=== PATIENT | female | born 1975 | race African-American/Black ===

== ENCOUNTER 2020-07-29 13:33 | Outpatient (RCR) | payer MEDICAID, SELFPAY | END 2020-10-11 23:59 | LOC: IMMUN 13:33 | PROVIDERS: PCP Preventive Medicine Occupational Medicine; Visit Provider Family Medicine | DX: Z23 Encounter for immunization (principal) | CPT/HCPCS: 0001A; 0002A; 91300 ==

== ENCOUNTER → 2022-07-02 | Outpatient (CLI) | payer MEDICAID, SELFPAY ==
--- NOTE | 2022-07-02 13:07 | CT_ITS ---
STUDY: CT CHEST WITHOUT CONTRAST REASON FOR EXAM: Female, 46 years old. CHEST PAIN-limited chest over-read only RADIATION DOSAGE (If Supplied By Facility): CTDIvol = ( 52.32 ) mGy, DLP = ( 3425.79 ) mGycm TECHNIQUE: Transaxial imaging was performed without the administration of intravenous contrast material. Cardiac or renal examination. Individualized dose optimization techniques were used for this CT. COMPARISON: No relevant priors. FINDINGS: CHEST Mild degree of dependent bibasilar atelectasis. There is no demonstrated pleural abnormality. No coronary artery calcification is seen. Normal mediastinum. Normal hilar regions. Normal unenhanced pulmonary arteries. Normal aorta arch and descending thoracic aorta. Normal osseous structures. Fatty infiltration of the liver. CT/Limited Chest CT Cardiac Only IMPRESSION: Mild degree of bibasilar atelectasis. No coronary artery calcification is seen Electronically Signed: Edgar La MD at 10:46 EST ,
[2022-07-02 13:40] VITALS: BP 198/97; PULSE 68; RESP 20; O2SAT 98; BMI 41.5
[2022-07-02 13:58] VITALS: BP 198/97; PULSE 98
[2022-07-02] MEDS: Nitroglycerin SL (ED/IMG/CATH) 0.4 MG TABLET SL (13:58)
[2022-07-02 14:04] VITALS: BP 198/97; PULSE 74
[2022-07-02] MEDS: Metoprolol Tartrate 5 MG/5 ML Vial IV (14:04)
[2022-07-02 14:13] VITALS: BP 175/101; PULSE 66; RESP 20; O2SAT 95
[2022-07-02 14:16] LABS: EGFR FINGERSTICK > 60.0000 mL/min (>60)
--- NOTE | 2022-07-02 14:16 | NURSING ---
PT encouraged to track baseline BP records at home and share with provider. Pt denies LEIVA/dizziness/blurred vision, CP, weakness.
--- NOTE | 2022-07-02 18:54 | CCTA.WCONT ---
CCTA w/Cont Coronary Arteries Date of Study:: 07/02/22 Chest Pain Consent:: Per Patient The patient underwent coronary CTA with particular attention paid to the coronary arteries for the evaluation of underlying atherosclerotic coronary artery disease. The procedure was performed without obvious complication. Technical adequacy: Diminished LEFT MAIN CORONARY ARTERY: The left main coronary appears to be a large vessel giving rise to the left anterior descending and left circumflex coronary arteries. The left main coronary artery appears to be patent with no obvious angiographically significant appearing disease. LEFT ANTERIOR DESCENDING CORONARY ARTERY: The left anterior descending coronary artery is a large vessel tapering to a small vessel as it courses to the apex and gives rise to a diagonal branching system. The left anterior descending coronary artery appears to be patent with no obvious angiographically significant appearing disease. LEFT CIRCUMFLEX CORONARY ARTERY: The left circumflex coronary artery appears to give rise to an obtuse marginal system. The proximal to mid portions of the left circumflex coronary artery appear to be patent with no obvious angiographically significant appearing disease. The distal portion of the left circumflex coronary artery is not well visualized. The obtuse marginal coronary artery appears to be patent with no obvious angiographically significant appearing disease. RIGHT CORONARY ARTERY: The right coronary artery appears to be a dominant system. The right coronary artery appears to be patent with no obvious angiographically significant appearing disease. The right PDA/right AV segment are not well visualized. THORACIC AORTA: The thoracic aorta appears to be patent with no obvious angiographically significant disease. PULMONARY ARTERY: The main pulmonary artery and proximal portions of the right and left pulmonary artery appear to be patent with no obvious filling defects. LEFT ATRIUM/APPENDAGE: The left atrium/appendage appears to be patent with no obvious filling defects. MITRAL VALVE: The mitral valve appears to be bileaflet structure. AORTIC VALVE: The aortic valve appears to be a trileaflet structure. LEFT VENTRICLE: The left ventricle demonstrates the appearance of normal left ventricular size, wall motion, and systolic function. The LVEF was calculated at 81%. CORONARY CALCIUM SCORE: A coronary calcium score was not obtained. This note was generated using a voice recognition system and there may be incorrect words, spelling or punctuation that were not noted when reviewing the office note prior to saving.
== END | disposition home or self-care (01) ==
LOC: CT 13:05
PROVIDERS: PCP Preventive Medicine Occupational Medicine; Referring Provider Nurse Practitioner Family; Visit Provider Nurse Practitioner Family
DX: R07.9 Chest pain, unspecified (principal); I82.409 Acute embolism and thrombosis of unspecified deep veins of unspecified lower extremity; I10 Essential (primary) hypertension; E78.00 Pure hypercholesterolemia, unspecified
CPT/HCPCS: 75574; 76380; Q9967

== ENCOUNTER 2024-02-22 21:40 | Emergency (ER) | payer MEDICAID, SELFPAY ==
[2024-02-22 21:41] VITALS: BP 177/95; PULSE 83; RESP 18; TEMP 37; O2SAT 98; BMI 39.6
--- NOTE | 2024-02-22 22:24 | EX.ED.DYSGE1 ---
HPI History of Present Illness Chief Complaint: Dizziness Informant: patient Narrative Narrative: 48-year-old female presenting with dizziness that feels like spinning/vertigo for the past 5 days. States started suddenly while she was at work 1 day, she does remember exactly she was doing them but ever since it has been a lot worse with any type of movement or position changes. She denies any nausea or vomiting. No earache or tinnitus. No recent URI. Occasional headache not right now. States the dizziness is present and significant right now. She denies any vision changes or focal neurologic symptoms peripherally. Sometimes off balance as a result of this. 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 States she has also been having some vaginal bleeding lately which is unusual for her regarding the timing since she is not this to be on her cycle right now. It has not been very heavy but it has been present for 3 days. She states she is also checked her blood pressure and concerned it was elevated, it has been in the 150s and occasionally in the 160s. She takes blood pressure medication no recent changes to 100 of her medicines. No recent head injury. No syncope. Patient states she has had this in the past off-and-on with regards to the vertigo. She states this is unusual because it has been lasting longer. Otherwise it is similar. [facility] Medical History Chest pain History of arterial thrombosis CAYLA (obstructive sleep apnea) Hypercholesteremia Hypertension Home Medications ?Medication ?Instructions ?Recorded ?Last Taken ?Type atorvastatin 20 mg tablet 20 mg PO DAILY 02/22/24 Unknown History diltiazem HCl 360 mg capsule,24 360 mg PO DAILY 02/22/24 Unknown History hr,extended release metoprolol succinate 25 mg 25 mg PO DAILY 02/22/24 Unknown History tablet,extended release 24 hr warfarin 6 mg tablet mg PO 02/22/24 Unknown History warfarin 6 mg tablet (Jantoven) 12 mg PO DAILY 02/22/24 Unknown History meclizine 25 mg tablet 25 mg PO Q8H PRN PRN Dizziness #20 02/23/24 Unknown Rx tabs Allergy/AdvReac Type Severity Reaction Status Date / Time No Known Allergies Allergy Verified 02/22/24 21:41 Family History Mother Heart disease Social History Smoking Status: Never smoker alcohol intake: never substance use type: does not use ROS ROS ED Constitutional Constitutional ED: Denies chills or fever(s) Eyes Eyes: Denies change in vision or diplopia ENT ENT ED: Reports as per HPI and vertigo; Denies abnormal hearing, ear discharge, ear pain, hearing loss, rhinorrhea or sore throat Cardiovascular Cardiovascular: Denies chest pain or palpitations Respiratory/Chest Respiratory/Chest: Denies cough or dyspnea Gastrointestinal Gastrointestinal: Denies abdominal pain, diarrhea, nausea or vomiting Genitourinary Genitourinary ED: Denies dysuria or hematuria Musculoskeletal Musculoskeletal: Denies back pain or neck pain Integumentary Denies abscess or rash Neurologic Neurologic: Denies headache(s), paresthesias or weakness Psychiatric Psychiatric: Denies anxiety or suicidal thoughts EXAM Physical Exam Const Vital Signs: 02/22/24 21:41 02/22/24 23:41 02/23/24 01:00 Temperature 98.6 F Temperature Source Oral Pulse Rate 83 88 66 Respiratory Rate 18 16 16 Blood Pressure 177/95 H 165/77 H 142/65 H Blood Pressure Mean 122 106 90 Pulse Ox 98 95 96 Oxygen Delivery Method Room Air Room Air Room Air Positive well nourished and well developed General Appearance ED: well developed and NAD HEENT Reports moist mucous membranes normocephalic and atraumatic Eyes PERRL and EOMs intact bilaterally Neck full ROM and supple Resp normal respiratory effort and clear to auscultation bilaterally Cardio regular rate, regular rhythm and no murmurs GI non-tender and non-distended Auscultation: normoactive bowel sounds Palpation: soft Back/Spine no CVA tenderness General Back: other FROM Extremity normal to inspection General Extremety ED: Negative for edema, pulses abnormal or tenderness General Extremity: Negative for edema or pulses abnormal Neuro oriented x3, CN's II-XII intact bilaterally and no sensory deficits noted Neuro Narrative: Normal [id number] and [id number] bilaterally. Hints: Head impulse test is abnormal, with catch-up saccade. There is horizontal nystagmus to the right but not the left. Skew test is unremarkable and normal. Sensorium / Orientation: awake and alert Motor Exam: strength 5/5 throughout Psych mental status grossly normal Skin no rashes or lesions noted and no wounds MDM MDM MDM Narrative Medical decision making narrative: At the time of evaluation her blood pressure is 149 systolic. I do not think that her blood pressures are causing her symptoms. She is anticoagulated so an ischemic stroke is extremely unlikely, since she does not have a headache right now with significant symptoms and hemorrhagic strokes extremely unlikely. I am obtaining an INR and some basic labs to make sure she is not terribly anemic while giving her some meclizine and plan will be for reevaluation. Her INR returned at 15.1. This may explain the abnormal vaginal bleeding she is having. Her hemoglobin is 11 I do not have a prior to compare with but she is not tachycardic as if she has lost a lot of blood acutely. I consider this [id number] bleeding. Given this, I did not think she needed a CT but since her INR is 15 and she was having some headaches off and on I thought it best to perform a CT to rule out hemorrhage. I reviewed the images and the report which I agree with, it is negative. She was given vitamin K 5 mg IV. She did not have active bleeding while here. I believe she can be discharged home safely to hold her Coumadin until she follows up with her doctor after the weekend. After meclizine her dizziness is much better consistent with peripheral etiology of vertigo. She is given a prescription for that to use as needed and again advised to follow-up closely. She is comfortable with that plan. Lab Data Attestation: I reviewed the patient's lab results. Labs: Laboratory Results - last 24 hr 02/22/24 22:49 WBC 6.3 RBC 4.37 Hgb 11.0 L Hct 36.3 L MCV 83.1 MCH 25.2 L MCHC 30.3 L RDW Std Deviation 56.2 H RDW Coeff of Maria M 18.6 H Plt Count 237 MPV 10.0 Immature Gran % (Auto) 0.200 Neut % (Auto) 56.6 Lymph % (Auto) 25.4 Hanson % (Auto) 13.9 H Eos % (Auto) 3.3 Baso % (Auto) 0.6 Absolute Neuts (auto) 3.6 Absolute Lymphs (auto) 1.61 Nucleated RBC % 0 PT 108.1 H INR 15.1 H* Sodium 137 Potassium 4.2 Chloride 108 H Carbon Dioxide 26.0 Anion Gap 3 L BUN 22 H Creatinine 0.68 Estim Creat Clear Calc 104.31 Est GFR (MDRD) Af Amer 118 Est GFR (MDRD) Non-Af 98 BUN/Creatinine Ratio 32.5 H Glucose 115 H Calcium 9.0 Radiography Diagnostic Testing: Clinical Impression(s) from Imaging Studies Brain CT 02/23/24 00:09 IMPRESSION: No acute intracranial abnormality. ASSESSMENT: ASPECTS ([place] Stroke Program Early CT Score) is 10. Electronically Signed: Adrien Wong MD at 0:41 EDT , Rhythm Strip Rhythm Strip: Sinus Rhythm Rate: 80 Ectopy: None Discharge Plan Triage Chief Complaint: Dizziness ED Provider: Terry Crockett Dx/Rx/DC Orders Clinical Impression: Peripheral vertigo, Supratherapeutic INR, DUB (dysfunctional uterine bleeding) Instructions: ED Labyrinthitis Prescriptions: New meclizine 25 mg tablet 25 mg PO Q8H PRN PRN (Reason: Dizziness) Qty: 20 0RF Continued atorvastatin 20 mg tablet 20 mg PO DAILY diltiazem HCl 360 mg capsule,extended release 24 hr 360 mg PO DAILY metoprolol succinate 25 mg tablet extended release 24 hr 25 mg PO DAILY Held warfarin 6 mg tablet PO Hold Instructions: Until advised otherwise by your doctor warfarin [Jantoven] 6 mg tablet 12 mg PO DAILY Hold Instructions: Until advised otherwise by your doctor Primary Care Provider: Lalito Knight Referrals: Lalito Knight DO [Primary Care Provider] - Print Language: Yakut
--- OUTSIDE RECORDS SUMMARY | 2024-02-22 22:33 | XMS RPT_ITS | CCD ---
Author Organization [facility] Care Team Providers Care Colored Liquid Plastic Applier Name Role Phone Mehran Knight Primary Care Provider [phone] MEHRAN KNIGHT DO Primary Care Physician [phone] REID CORTEZ DO Attending Unavailable MEHRAN KNIGHT DO Primary Care Unavailable MEHRAN KNIGHT DO Primary Care Unavailable STACEY JACKSON MD Attending Unavail able MEHRAN KNIGHT DO Attending Unavailable MEHRAN KNIGHT DO Primary Care Unavailable REID CORTEZ DO Attending Unavailable MEHRAN KNIGHT Primary Care Unavailable Medications Current Medications Medication Drug Class(es) Dates Sig (Normalized) Sig (Original) atorvastatin 20 mg oral tablet (10 sources) HMG-CoA Reductase Inhibitor Start: 08-01-2023 End: 09-04-2024 atorvastatin 20 mg oral tablet Dose : 20 mg = 1 tab(s), Oral, qDay, # 100 tab(s), 3 Refill(s), [facility] #[id number], Hypercholesterolemi a, 156.5, cm, 08/01/23 10:54:00 EDT, Height, kg, 08/01/23 10:54:00 EDT, Dosing Weight Start Date: 08/01/23 Stop Date: 09/04/24 Status: Ordered Start: 01-15-2022 End: 01-10-2023 atorvastatin 20 mg oral tabl et Dose : 20 mg = 1 tab(s), Oral, qDay, # 90 tab(s), 3 Refill(s), Pharmacy: [facility] #[id number], 157, cm, 01/15/22 11:39:00 EDT, Height, kg, 01/15/22 11:39:00 EDT, Dosing Weight Start Date: 01/15/22 Stop Date: 01/10/23 Status: Ordered Start: 10-14-2020 End: 10-09-2021 atorvastatin 20 mg oral tabl et Dose : 20 mg = 1 tab(s), Oral, qDay, # 90 tab(s), 3 Refill(s), [facility] [address] 157, cm, 10/14/20 8:37:00 EDT, Height, kg, 10/14/20 8:37:00 EDT, Dosing Weight Start Date: 10/14/20 Stop Date: 10/09/21 Status: Ordered Start: 06-15-2015 take 1 tablet by liza th once daily atorvastatin (LIPITOR) 20 mg tablet Take 20 mg by mouth once daily. 0 06/15/2015 Active Comment on above: Take 20 mg by mouth once daily. baclofen 10 mg oral tablet (1 source) gamma-Aminobutyric Acid-ergic Agonist Start: 05-15-2021 End: 05-30-2021 baclofen 10 mg oral tablet Dose : 10 mg = 1 tab(s), Oral, TID, PRN back spasm, # 45 tab(s), 0 Refill(s), [facility] [address] Lumbar paraspinal muscle spasm, 157, cm, 05/15/21 16:27:00 EST, Height, kg, 05/15/21 16:27:00 EST, Dosing Weight Start Date: 05/15/21 Stop Date: 05/30/21 Status: Ordered cephalexin 500 mg oral capsule (1 source) Cephalosporin Antibacterial Start: 01-07-2024 End: 01-14-2024 cephalexin 500 mg oral capsule Dose : 500 mg = 1 cap(s), Oral, q12h, X 7 day(s), # 14 cap(s), 0 Refill(s), 01/14/24 3:29:00 PM EDT, 96.4 Start Date: 01/07/24 Stop Date: 01/14/24 Status: Ordered cyclobenzaprine hydrochloride 10 mg oral tablet (1 source) Muscle Relaxant Start: 05-11-2021 End: 05-16-2021 cyclobenzaprine 10 mg oral tablet Dose : 10 mg = 1 tab(s), Oral, TID, X 5 day(s), # 15 tab(s), 0 Refill(s), 05/16/21 20:12:00 EST Start Date: 05/11/21 Stop Date: 05/16/21 Status: Ordered 24 hr dilTIAZem hydrochloride 360 mg extended release oral capsule (10 sources) Calcium Channel Dmitry Start: 01-01-2024 Taztia XT 360 mg/24 hours oral capsule, extended release Dose : 360 mg = 1 cap(s), Oral, qDay, # 90 cap(s), 3 Refill(s), Pharmacy: [facility]/pharmacy #[id number], 156.5, cm, 08/01/23 10:54:00 EDT, Height, kg, 08/01/23 10:54:00 EDT, Dosing Weight Start Date: 01/01/24 Status: Ordered Start: 01-10-2023 Taztia XT 360 mg/24 hours oral capsule, extended release Dose : 360 mg = 1 cap(s), Oral, qDay, # 90 cap(s), 3 Refill(s), Pharmacy: [facility] #[id number], 144.8, cm, 12/06/22 22:01:00 EDT, Height, kg, 12/06/22 22:01:00 EDT, Dosing Weight Start Date: 01/10/23 Status: Ordered Start: 01-15-2022 Taztia XT 360 mg/24 hours oral capsule, extended release Dose : 360 mg = 1 cap(s), Oral, qDay, # 90 cap(s), 3 Refill(s), Pharmacy: [facility] #[id number], 157, cm, 01/15/22 11:39:00 EDT, Height, kg, 01/15/22 11:39:00 EDT, Dosing Weight Start Date: 01/15/22 Status: Ordered Start: 04-21-2021 Taztia XT 360 mg/24 hours oral capsule, extended release Dose : 360 mg = 1 cap(s), Oral, qDay, # 90 cap(s), 3 Refill(s), Pharmacy: [facility] 157, cm, 01/30/21 11:26:00 EDT, Height, kg, 01/30/21 11:26:00 EDT, Dosing Weight Start Date: 04/21/21 Status: Ordered take 1 capsule by [facility] once daily Diltiazem HCl 360 mg 24 hr capsule Take 360 mg by mouth once daily. 0 Active Comment on above: Take 360 mg by mouth once daily. FLUoxetine 10 mg oral tablet (1 source) Serotonin Reuptake Inhibitor Start: 08-01-2023 FLUoxetine 10 mg oral tablet Dose : 10 mg = 1 tab(s), Oral, qDay, # 30 tab(s), 0 Refill(s), Pharmacy: [facility] #[id number], Menopausal hot flushes, 156.5, cm, 08/01/23 10:54:00 EDT, Height, kg, 08/01/23 10:54:00 EDT, Dosing Weight Start Date: 08/01/23 Status: Ordered gabapentin 600 mg oral tablet (3 sources) Anti-epileptic Agent Start: 11-23-2021 End: 02-21-2022 gabapentin 600 mg oral tablet Dose : 1,200 mg = 2 tab(s), Oral, BID, # 120 tab(s), 2 Refill(s), Pharmacy: [facility] #[id number], Left sided sciatica, 157, cm, 11/23/21 13:08:00 EDT, Height, 102.1, kg, 11/23/21 13:08:00 EDT, Dosing Weight Start Date: 11/23/21 Stop Date: 02/21/22 Status: Ordered Start: 05-15-2021 End: 06-14-2021 gabapentin 600 mg oral table t Dose : 600 mg = 1 tab(s), Oral, BID, Start with one half tab p.o. at bedtime and increase dose as by one half tab twice daily as tolerated, # 60 tab(s), 0 Refill(s), Pharmacy: [facility] Left sided sciatica, 157, cm, 05/15/21 16:27:00 ES... Start Date: 05/15/21 Stop Date: 06/14/21 Status: Ordered hydroCHLOROthiazide 25 mg oral tablet (8 sources) Thiazide Diuretic Start: 01-15-2022 hydroCHLOROthiazide 25 mg oral tablet Dose : 25 mg = 1 tab(s), Oral, qDay, PRN Blood pressure control, # 90 tab(s), 3 Refill(s), Pharmacy: [facility] #[id number], 157, cm, 01/15/22 11:39:00 EDT, Height, kg, 01/15/22 11:39:00 EDT, Dosing Weight Start Date: 01/15/22 Status: Ordered Start: 07-26-2020 hydroCHLOROthi azide 25 mg oral tablet Dose : 25 mg = 1 tab(s), Oral, qDay, PRN Blood pressure control, # 90 tab(s), 3 Refill(s), Pharmacy: [facility] 159, cm, 07/26/20 10:37:00 EDT, Height, kg, 07/26/20 10:37:00 EDT, Dosing Weight Start Date: 07/26/20 Status: Ordered meclizine hydrochloride 25 m g oral tablet (9 sources) Antiemetic Start: 12-06-2022 End: 12-11-2022 meclizine 25 mg oral tablet Dose : 25 mg = 1 tab(s), Oral, TID, PRN as needed for dizziness, X 5 day(s), # 15 tab(s), 0 Refill(s), 12/11/22 11:21:00 PM EDT Start Date: 12/06/22 Stop Date: 12/11/22 Status: Ordered Start: 07-16-2020 meclizine 12.5 mg oral tablet Dose : 12.5 mg = 1 tab(s), Oral, TID, PRN as needed for dizziness, # 20 tab(s), 0 Refill(s), Vertigo Start Date: 07/16/20 Status: Ordered Medrol Dosepak 4 mg oral tablet (1 source) Start: 05-11-2021 End: 05-17-2021 Medrol Dosepak 4 mg oral tablet 1 packet(s), Oral, qDay, as directed on package labeling, X 6 day(s), # 21 tab(s), 0 Refill(s), 05/17/21 20:12:00 EST Start Date: 05/11/21 Stop Date: 05/17/21 Status: Ordered 24 hr metoprolol succinate 25 mg extended release oral tablet (4 sources) beta-Adrenergic Dmitry Start: 05-28-2022 metopr olol succinate 25 mg oral TABLET extended release Dose : 25 mg = 1 tab(s), Oral, qDay, Do not crush or chew (controlled release), # 30 tab(s), 5 Refill(s), [facility][id number], 155, cm, 05/28/22 10:24:00 EST, Height Start Date: 05/28/22 Status: Ordered oxyCODONE hydrochloride 5 mg oral tablet (1 source) Opioid Agonist Start: 05-11-2021 End: 05-14-2021 oxyCODONE 5 mg oral tablet ( IMMEDIATE release ) Dose : 5 mg = 1 tab(s), Oral, q6hr, PRN Pain, scale 7-10, X 3 day(s), # 7 tab(s), 0 Refill(s), 05/14/21 20:29:00 EST, Left-sided piriformis syndrome Pain in left leg, 102.8 Start Date: 05/11/21 Stop Date: 05/14/21 Status: Ordered phentermine hydrochloride 37.5 mg oral tablet (2 sources) Sympathomimetic Amine Anorectic Start: 12-04-2021 End: 01-03-2022 phentermine 37.5 mg oral tablet Dose : 37.5 mg = 1 tab(s), Oral, qAM, before breakfast, X 30 day(s), # 30 tab(s), 0 Refill(s), 01/03/22 14:10:00 EDT, Pharmacy: [facility] #[id number], Morbid obesity with BMI of 40.0-44.9, adult, 157, cm, 12/04/21 13:37:00 EDT, Height, 101 Start Date: 12/04/21 Stop Date: 01/03/22 Status: Ordered vitamin b12 1 mg oral tablet (8 sources) Vitamin B12 Start: 08-02-2023 End: 09-05-2024 cyanocobalamin 1000 mcg oral tablet Dose : 1,000 mcg = 1 tab(s), Oral, Daily, # 100 tab(s), 3 Refill(s), Pharmacy: [facility] #[id number], Vitamin B12 deficiency, 156.5, cm, 08/01/23 10:54:00 EDT, Height, kg, 08/01/23 10:54:00 EDT, Dosing Weight Start Date: 08/02/23 Stop Date: 09/05/24 Status: Ordered Start: 08-01-2022 cyanocobalamin 1000 mcg oral tablet Dose : 1,000 mcg = 1 tab(s), Oral, Daily, # 90 tab(s), 3 Refill(s), Pharmacy: [facility] #[id number], Vitamin B12 deficiency, 155, cm, 05/28/22 10:24:00 EST, Height, kg, 05/28/22 10:24:00 EST, Dosing Weight Start Date: 08/01/22 Status: Ordered Start: 07-31-2021 cyanocobalamin 1000 mcg oral tablet Dose : 1,000 mcg = 1 tab(s), Oral, Daily, # 90 tab(s), 3 Refill(s), [facility], Vitamin B12 deficiency, 157, cm, 07/31/21 11:37:00 EDT, Height, kg, 07/31/21 11:37:00 EDT, Dosing Weight Start Date: 07/31/21 Status: Ordered Start: 08-12-2020 cyanocobalamin 1000 mcg oral tablet Dose : 1,000 mcg = 1 tab(s), Oral, Daily, # 90 tab(s), 3 Refill(s), Pharmacy: [facility], Vitamin B12 deficiency, 159, cm, 07/26/20 10:37:00 EDT, Height, kg, 07/26/20 10:37:00 EDT, Dosing Weight Start Date: 08/12/20 Status: Ordered warfarin sodium 6 mg oral tablet (10 sources) Vitamin K Antagonist Start: 04-23-2023 warfarin 6 mg oral tablet See Instructions, Take 2.5 tabs on Saturday and and 2 tabs PO on the other days of the week., # 180 tab(s), 1 Refill(s), Pharmacy: [facility] #[id number], History of arterial thrombosis, 144.8, cm, 12/06/22 22:01:00 EDT, Height, kg, 04/10/23 11:26:00 EST, Dosing Weight Start Date: 04/23/23 Status: Ordered Start: 05-29-2022 warfarin 6 mg oral tablet See Instructions, Take 2.5 tabs on Saturday and and 2 tabs PO on the other days of the week., # 180 tab(s), 1 Refill(s), Pharmacy: [facility] #[id number], History of arterial thrombosis, 155, cm, 05/28/22 10:24:00 EST, Height, kg, 05/28/22 10:24:00 EST, Dosing Weight Start Date: 05/29/22 Status: Ordered Start: 01-30-2021 warfarin 6 mg oral tablet See Instructions, Take 2-1/2 tablets p.o. on Saturday and and 2 tablets p.o. on the other days of the week., # 180 tab(s), 1 Refill(s), [facility]acy: [facility] [facility], History of arterial thrombosis, 157, cm, 01/30/21 11:26:00 EDT, Height, k... Start Date: 01/30/21 Status: Ordered warfarin (COUMAD IN) 10 mg tablet Take 10 mg by mouth once daily. Taking 12mg per day 0 Active Comment on above: Take 10 mg by mouth once daily. 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] Onset: 7 07-03-2016 Chronic Conditions associated with dizziness or vertigo (1 source) Dizziness and giddiness; Translations: [Dizziness and giddiness] Onset: 3 Episodic Disorders of lipid metabolism (8 sources) Pure hypercholesterolemia 11-24-2019 Chroni c Essential hypertension (9 sources) Hypertensive disorder; Translations: [Essential hypertension] Onset: 3 10-14-2020 Chronic Genitourinary symptoms and ill-defined conditions (2 sources) Polyuria 07-31-2021 Episodic Menopausal disorders (1 source) Menopausal flushing 08-01-2023 Chronic Nutritional deficiencies (8 sources) Cobalamin deficiency 08-14-2019 Episodic Other aftercare (8 sources) Long-term current use of anticoagulant 01-30-2021 Episodic Other circulatory disease (8 sources) History of arterial thrombosis 10-07-2019 Episodic Other connective tissue disease (1 source) Pain of left lower leg; Translations: [Pain in left lower leg] Onset: 2 Episodic Other connective tissue disease (1 source) Muscle pain; Translations: [Myalgia, other site] Onset: 2 Episodic Other connective tissue disease (1 source) Pain in left arm 12-04-2021 Episodic Other diseases of bladder and urethra (4 sources) Overactive bladder 04-16-2022 Chronic Other nervous system disorders (1 source) Sciatic nerve lesion; 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, left lower limb] Onset: 2 Chronic Other nervous system disorders (4 sources) Carpal tunnel syndrome 01-15-2022 Chronic Other non-traumatic joint disorders (1 source) Pain of left hip joint; Translations: [Pain in left hip] Onset: 2 Episodic Other non-traumatic joint disorders (5 sources) Pain in elbow 12-04-2021 Episodic Other nutritional; endocrine; and metabolic disorders (8 sources) Body mass index 40+ - severely obese 10-07-2019 Chronic Other skin disorders (8 sources) Mass lesion of brain 10-07-2019 Episodic Residual codes; unclassified (8 sources) Obstructive sleep apnea of adult 12-12-2020 Chronic Spondylosis; intervertebral disc disorders; other back problems (20 sources) Backache; Translations: [Sciatica] Onset: 3 05-15-2021 Episodic Unclassified (10 sources) Patient encounter status 05-26-2019 Results Test Name Value Interpretation Reference Range Facility .Auto Diffon 01-07-2024 Basophil, Absolute 0.1 10 3/mcL Normal 0.0-0.2 [facility] ([place]) Comment on above: Performed By: #### C BC, GFR, BMP, SADIA, RENITA GUNTER #### [address] [address] Basophils/100 WBC (Bld) 1.4 % Normal 0.0-2.5 [facility] ([place]) Comment on above: Performed By: #### C BC, GFR, BMP, ANEU, RENITA GUNTER #### [address] [address] Eosinophil, Absolute 0.2 10 3/mcL Normal 0.0-0.4 [facility] ([place]) Comment on above: Performed By: #### C BC, GFR, BMP, ANEU, RENITA GUNTER #### [address] [address] Eosinophils/100 WBC (Bld) 3.5 % Normal 0.0-7.0 [facility] ([place]) Comment on above: Performed By: #### C BC, GFR, BMP, ANEU, RENITA GUNTER #### [address] [address] Lymphocyte, Absolute 1.3 10 3/mcL Normal 0.8-3.9 [facility] ([place]) Comment on above: Performed By: #### C BC, GFR, BMP, ANEU, RENITA GUNTER #### [address] [address] Lymphocytes/100 WBC (Bld) 24.1 % Normal 10.0-50.0 [facility] ([place]) Comment on above: Performed By: #### C BC, GFR, BMP, ANEU, RENITA GUNTER #### [address] [address] Monocyte, Absolute 0.4 10 3/mcL Normal 0.2-1.0 [facility] ([place]) Comment on above: Performed By: #### C BC, GFR, BMP, ANEU, RENITA GUNTER #### [address] [address] Monocytes/100 WBC (Bld) 8.5 % Normal 1.7-13.0 [facility] ([place]) Comment on above: Performed By: #### C BC, GFR, BMP, ANEU, ADRENITA BAKER #### [address] [address] Neutrophils/100 WBC (Bld) 62.5 % Normal 37.0-80.0 [facility] ([place]) Comment on above: Performed By: #### C BC, GFR, BMP, LYRIC MCCULLOUGH MDW #### [address] [address] .GFRon 01-07-2024 GFR 61 ml/min/1.73sqm Normal [facility] ([place]) Comment on above: Result Comment: GFR Population mean for , Non- Americans Ages 20-29 = 116 mL/min/1.73 sq.m. Ages 30-39 = 107 mL/min/1.73 sq.m. Ages 40-49 = 99 mL/min/1.73 sq.m. Ages 50-59 = 93 mL/min/1.73 sq.m. Ages 60-69 = 85 mL/min/1.73 sq.m. Ages 70+ = 75 mL/min/1.73 sq.m. Chronic Kidney Disease: Less than 60 mL/min/1.73 square meters End Stage Renal Disease: Less than 15 mL/min/1.73 square meters Performed By: #### C BC, GFR, BMP, LYRIC MCCULLOUGH MDW #### [address] [address] GFR Non- 50 ml/min/1.73sqm Normal [facility] ([place]) Comment on above: Result Comment: GFR Population mean for , Non- Americans Ages 20-29 = 116 mL/min/1.73 sq.m. Ages 30-39 = 107 mL/min/1.73 sq.m. Ages 40-49 = 99 mL/min/1.73 sq.m. Ages 50-59 = 93 mL/min/1.73 sq.m. Ages 60-69 = 85 mL/min/1.73 sq.m. Ages 70+ = 75 mL/min/1.73 sq.m. Chronic Kidney Disease: Less than 60 mL/min/1.73 square meters End Stage Renal Disease: Less than 15 mL/min/1.73 square meters Performed By: #### C BC, GFR, BMP, LYRIC MCCULLOUGH MDW #### [address] [address] .MDWon 01-07-2024 Monocyte Distribution Width 16.39 Normal 0.00-20.00 [facility] ([place]) Comment on above: Result Comment: For ED adult patients suspected of sepsis, MDW<=20.0 does not rule out sepsis or risk of sepsis Performed By: #### C BC, GFR, BMP, LYRIC MCCULLOUGH MDW #### [place] [address] .NEUABSon 01-07-2024 Neutrophil, Absolute 3.3 10 3/mcL Normal 2.9-6.2 [facility] ([place]) Comment on above: Performed By: #### C BC, GFR, BMP, LYRIC MCCULLOUGH MDW #### [place] [address] .Urinalysis Microscopic (AO) on 01-07-2024 UA RBC 0-5 Abnormal None Seen [facility] ([place]) Comment on above: Performed By: #### U AMICAO, UA #### [place] [address] UA Squam Epithelial 5-10 Abnormal None Seen [facility] ([place]) Comment on above: Performed By: #### U AMICAO, UA #### [place] [address] UA WBC 0-5 Abnormal None Seen [facility] ([place]) Comment on above: Performed By: #### U AMICAO, UA #### [place] [address] BMPon 01-07-2024 BUN/Creatinine Ratio 17 ratio Normal 7-27 [facility] ([place]) Comment on above: Performed By: #### C BC, GFR, BMP, LYRIC MCCULLOUGH MDW #### [place] [address] Calcium [Mass/Vol] 9.1 mg/dL Normal 8.4-10.2 [facility] ([place]) Comment on above: Performed By: #### C BC, GFR, BMP, LYRIC MCCULLOUGH MDW #### [address] [place] [address] Chloride [Moles/Vol] 103 mmol/L Normal 98-107 [facility] ([place]) Comment on above: Performed By: #### C BC, GFR, BMP, LYRIC MCCULLOUGH MDW #### [address] [address] CO2 [Moles/Vol] 28 mmol/L Normal 22-29 [facility] ([place]) Comment on above: Performed By: #### C BC, GFR, BMP, LYRIC MCCULLOUGH MDW #### [address] [address] Creatinine [Mass/Vol] 1.14 mg/dL High 0.55-1.02 [facility] ([place]) Comment on above: Result Comment: Test ing performed on [employer] Dimension EXL analyzer using a modified kinetic David technique. Performed By: #### C BC, GFR, LLUVIA, LYRIC [facility]ULL[facility] MDW #### [address] [address] Electrolyte Balance 9.0 mEq/L Normal 4.0-15.0 [facility] ([place]) Comment on above: Performed By: #### C BC, GFR, SADIA TEIXEIRA ADIFF, MDW #### [address] [address] Glucose [Mass/Vol] 95 mg/dL Normal 70-105 [facility] ([place]) Comment on above: Performed By: #### C BC, GFR, LULVIA, L[facility]IC [facility] MDW #### [address] [address] Potassium [Moles/Vol] 3.4 mmol/L Low 3.5-5.1 [facility] ([place]) Comment on above: Performed By: #### C BC, GFR, BMPSADIA ADIFF, MDW #### [address] [address] Sodium [Moles/Vol] 140 mmol/L Normal 136-145 [facility] ([place]) Comment on above: Performed By: #### C BC, GFR, BMP, LYRIC MCCULLOUGH MDW #### [address] [address] Urea nitrogen [Mass/Vol] 19 mg/dL High 7-18 [facility] ([place]) Comment on above: Performed By: #### C BC, GFR, BMP, LYRIC MCCULLOUGH MDW #### [address] [address] CBCon 01-07-2024 Erythrocyte distribution width (RBC) [Ratio] 19.8 % High 11.5-14.5 [facility] ([place]) Comment on above: Performed By: #### C BC, GFR, BMP, LYRIC MCCULLOUGH MDW #### [place] [address] Hematocrit (Bld) [Volume fraction] 36.7 % Low 37.0-47.0 [facility] ([place]) Comment on above: Performed By: #### C BC, GFR, BMP, LYRIC MCCULLOUGH MDW #### [place] [address] Hgb 12.0 G/dL Normal 12.0-16.0 [facility] ([place]) Comment on above: Performed By: #### C BC, GFR, BMP, LYRIC MCCULLOUGH MDW #### [address] [address] MCH (RBC) [Entitic mass] 25.8 pg Low 27.0-31.2 [facility] ([place]) Comment on above: Performed By: #### C BC, GFR, BMP, LYRIC MCCULLOUGH MDW #### [place] [address] MCHC 32.8 G/dL Low 33.0-37.0 [facility] ([place]) Comment on above: Performed By: #### C BC, GFR, BMP, LYRIC MCCULLOUGH MDW #### [place] [address] MCV (RBC) [Entitic vol] 78.5 fL Low 80.0-94.0 [facility] ([place]) Comment on above: Performed By: #### C BC, GFR, BMP, LYRIC MCCULLOUGH MDW #### [address] [address] Platelet 304 10 3/mcL Normal 130-400 [facility] ([place]) Comment on above: Performed By: #### C BC, GFR, BMP, LYRIC MCCULLOUGH MDW #### [place] [address] [address] Platelet mean volume (Bld) [Entitic vol] 8.1 fL Normal 7.4-10.4 [facility] ([place]) Comment on above: Performed By: #### C BC, GFR, LLUVIA, LYRIC MCCULLOUGH MDW #### [place] [address] [address] RBC 4.67 10 6/mcL Normal 4.20-5.40 [facility]) Comment on above: Performed By: #### C BC, GFR, BMP, LYRIC MCCULLOUGH MDW #### [place] [address] [address] WBC 5.2 10 3/mcL Normal 4.6-10.8 [facility] ([place]) Comment on above: Performed By: #### C BC, GFR, LLUVIA, LYRIC MCCULLOUGH MDW #### [address] [address] LABORATORYOrdered By: Geno Delgadillo on 01-07-2024 Appearance (U) Clear (01/07/24 2:30 PM) Normal Clear AO Auto Urine SS Bilirubin Ql (U) Negative (01/07/24 2:30 PM) Normal Negative AO Auto Urine SS Color (U) Yellow (01/07/24 2:30 PM) Normal AO Auto Urine SS Glucose Test strip (U) [Mass/Vol] Negative Normal Negative AO Auto Urine SS Hemoglobin Auto test strip (U) [Mass/Vol] Trace *ABN* (01/07/24 2:30 PM) Invalid Interpretation Code Negative AO Auto Urine SS Ketones Ql (U) Negative Normal Negative AO Auto Ur ine SS UA Leuk Est Small *ABN* (01/07/24 2:30 PM) Invalid Interpretation Code Negative AO Auto Urine SS UA Nitrite Negative (01/07/24 2:30 PM) Normal Negative AO Auto Urine SS UA pH 5.5 (01/07/24 2:30 PM) Normal 5.0 - 8.0 AO Auto Urine SS UA Protein Trace mg/dL Normal Negative AO Auto Urine SS UA RBC 0-5 /HPF Invalid Interpretation Code None Seen AO Auto Urine SS UA Spec Grav >=1.030 *ABN* (01/07/24 2:30 PM) Invalid Interpretation Code 1.015-1.025 AO Auto Urine SS UA Specimen Type Clean Catch (01/07/24 2:30 PM) Normal AO Auto Urine SS UA Squam Epithelial 5-10 /HPF Invalid Interpretation Code None Seen AO Auto Urine SS UA Urobilinogen 0.2 E.U./dL Normal 0.2-1.0 AO Auto Urine SS WBC LM.HPF (Urine sed) [#/Area] 0-5 /HPF Invalid Interpretation Code None Seen AO Auto Urine SS LABORATORYOrdered By: SYSTEM SYSTEM on 01-07-2024 Basophil, Absolute 0.1 103/mcL Normal 0.0 - 0.2 10^3/mcL AO Workflow SS Basophils/100 WBC (Bld) 1.4 % Normal 0.0 - 2.5 % AO Workflow SS Calcium [Mass/Vol] 9.1 mg/dL Normal 8.4 - 10. 2 mg/dL AO ADM SS Chloride [Moles/Vol] 103 mmol/L Normal 98 - 10 7 mmol/L AO ADM SS CO2 [Moles/Vol] 28 mmol/L Normal 22 - 29 mmol/L AO ADM SS Creatinine [Mass/Vol] 1.14 mg/dL High 0.55 - 1.02 mg/dL AO ADM SS Comment on above: Interpretive Data: T esting performed on [employer] Dimension EXL analyzer using a modified kinetic David technique. Electrolyte Balance 9.0 mEq/L Normal 4.0 - 15 .0 mEq/L AO ADM SS Eosinophil, Absolute 0.2 103/mcL Normal 0.0 - 0 .4 10^3/mcL AO Workflow SS Eosinophils/100 WBC (Bld) 3.5 % Normal 0.0 - 7.0 % AO Workflow SS Erythrocyte distribution width (RBC) [Ratio] 19.8 % High 11.5 - 14.5 % AO Workflow SS GFR/1.73 sq M.predicted among blacks MDRD (S/P/Bld) [Vol rate/Area] 61 ml/min/1.73sqm Invalid Interpretation Code AO Chemistry S Comment on above: Interpretive Data: GFR Population mean for , Non- Americans Ages 20-29 = 116 mL/min/1.73 sq.m. Ages 30-39 = 107 mL/min/1.73 sq.m. Ages 40-49 = 99 mL/min/1.73 sq.m. Ages 50-59 = 93 mL/min/1.73 sq.m. Ages 60-69 = 85 mL/min/1.73 sq.m. Ages 70+ = 75 mL/min/1.73 sq.m. Chronic Kidney Disease: Less than 60 mL/min/1.73 square meters End Stage Renal Disease: Less than 15 mL/min/1.73 square meters GFR/1.73 sq M.predicted among non-blacks MDRD (S/P/Bld) [Vol rate/Area] 50 ml/min/1.73sqm Invalid Interpretation Code AO Chemistry S Comment on above: Interpretive Data: GFR Population mean for , Non- Americans Ages 20-29 = 116 mL/min/1.73 sq.m. Ages 30-39 = 107 mL/min/1.73 sq.m. Ages 40-49 = 99 mL/min/1.73 sq.m. Ages 50-59 = 93 mL/min/1.73 sq.m. Ages 60-69 = 85 mL/min/1.73 sq.m. Ages 70+ = 75 mL/min/1.73 sq.m. Chronic Kidney Disease: Less than 60 mL/min/1.73 square meters End Stage Renal Disease: Less than 15 mL/min/1.73 square meters Glucose [Mass/Vol] 95 mg/dL Normal 70 - 105 mg/dL AO ADM SS Hematocrit (Bld) [Volume fraction] 36.7 % Low 37.0 - 47.0 % AO Workflow SS Hemoglobin (Bld) [Mass/Vol] 12.0 G/dL Normal 12.0 - 16.0 G/dL AO Workflow SS Lymphocyte, Absolute 1.3 103/mcL Normal 0.8 - 3 .9 10^3/mcL AO Workflow SS Lymphocytes/100 WBC (Bld) 24.1 % Normal 10.0 - 50.0 % AO Workflow SS MCH (RBC) [Entitic mass] 25.8 pg Low 27.0 - 31.2 pg AO Workflow SS MCHC 32.8 G/dL Low 33.0 - 37.0 G/dL AO Workflow SS MCV (RBC) [Entitic vol] 78.5 fL Low 80.0 - 94.0 fL AO Workflow SS Monocyte distribution width Auto (Bld) [Entitic vol] 16.39 1 Normal 0.00 - 20.00 AO Workflow SS Comment on above: Result Comment: For ED adult patients suspected of sepsis, MDW<=20.0 does not rule out sepsis or risk of sepsis Monocyte, Absolute 0.4 103/mcL Normal 0.2 - 1.0 10^3/mcL AO Workflow SS Monocytes/100 WBC (Bld) 8.5 % Normal 1.7 - 13.0 % AO Workflow SS Neutrophil, Absolute 3.3 103/mcL Normal 2.9 - 6 .2 10^3/mcL AO Workflow SS Neutrophils/100 WBC (Bld) 62.5 % Normal 37.0 - 80.0 % AO Workflow SS Platelet mean volume (Bld) [Entitic vol] 8.1 fL Normal 7.4 - 10.4 fL AO Workflow SS Platelets (Bld) [#/Vol] 304 103/mcL Normal 130 - 400 10^3/mcL AO Workflow SS Potassium [Moles/Vol] 3.4 mmol/L Low 3.5 - 5.1 mmol/L AO ADM SS RBC (Bld) [#/Vol] 4.67 106/mcL Normal 4.20 - 5.4 0 10^6/mcL AO Workflow SS Sodium [Moles/Vol] 140 mmol/L Normal 136 - 145 mmol/L AO ADM SS Troponin I.cardiac DL <= 0.01 ng/mL [Mass/Vol] ng/L Normal 0 - 51 ng/L AO ADM SS Comment on above: Interpretive Data: H igh Sensitive Troponin I Reference Ranges: Female: 0-51 ng/L Male: 0-76 ng/L Testing performed on [employer] using a homogeneous sandwich chemiluminescent immunoassay based on [email or web address] technology. Urea nitrogen [Mass/Vol] 19 mg/dL High 7 - 18 mg/dL AO ADM SS Urea nitrogen/Creatinine [Mass ratio] 17 ratio Normal 7 - 27 ratio AO ADM SS WBC (Bld) [#/Vol] 5.2 103/mcL Normal 4.6 - 10.8 10^3/mcL AO Workflow SS TROPHSon 01-07-2024 High Sensitivity Troponin I <4 Normal 0-51 [facility] ([place]) Comment on above: Result Comment: High Sensitive Troponin I Reference Ranges: Female: 0-51 ng/L Male: 0-76 ng/L Testing performed on [employer] using a homogeneous sandwich chemiluminescent immunoassay based on [email or web address] technology. Performed By: #### C BC, GFR, BMP, ANEU, LYRIC, W #### [address] [address] UAon 01-07-2024 Color (U) Yellow Normal [facility] ([place]) Comment on above: Order Comment: Micro scopic performed on unspun urine; QNS. Performed By: #### U AMICAO, UA #### [address] [address] Glucose (U) [Mass/Vol] Negative Normal Negative [facility] ([place]) Comment on above: Order Comment: Micro scopic performed on unspun urine; QNS. Performed By: #### U AMICAO, UA #### [address] [address] Ketones Ql (U) Negative Normal Negative [facility] ([place]) Comment on above: Order Comment: Micro scopic performed on unspun urine; QNS. Performed By: #### U AMICAO, UA #### [address] [address] UA Appear Clear Normal Clear [facility] ([place]) Comment on above: Order Comment: Micro scopic performed on unspun urine; QNS. Performed By: #### U AMICAO, UA #### [address] [address] UA Blood Trace Abnormal Negative [facility] ([place]) Comment on above: Order Comment: Micro scopic performed on unspun urine; QNS. Performed By: #### U AMICAO, UA #### [address] [address] UA Leuk Est Small Abnormal Negative [facility] ([place]) Comment on above: Order Comment: Micro scopic performed on unspun urine; QNS. Performed By: #### U AMICAO, UA #### [address] [address] UA Nitrite Negative Normal Negative [facility] ([place]) Comment on above: Order Comment: Micro scopic performed on unspun urine; QNS. Performed By: #### U AMICAO, UA #### [address] [address] UA pH 5.5 Normal 5.0 - 8.0 [facility] ([place]) Comment on above: Order Comment: Micro scopic performed on unspun urine; QNS. Performed By: #### U AMICAO, UA #### [place] [address] UA Protein Trace Normal Negative [facility] ([place]) Comment on above: Order Comment: Micro scopic performed on unspun urine; QNS. Performed By: #### U AMICAO, UA #### [address] [address] UA Spec Grav >=1.030 Abnormal 1.015-1.025 [facility] ([place]) Comment on above: Order Comment: Micro scopic performed on unspun urine; QNS. Performed By: #### U AMICAO, UA #### [address] [address] UA Specimen Type Clean Catch Normal [facility] ([place]) Comment on above: Order Comment: Micro scopic performed on unspun urine; QNS. Performed By: #### U AMICAO, UA #### [address] [address] UA Urobilinogen 0.2 E.U./dL Normal 0.2-1.0 [facility] ([place]) Comment on above: Order Comment: Micro scopic performed on unspun urine; QNS. Performed By: #### U AMICAO, UA #### [place] [id number] Urobilinogen (U) [Mass/Vol] Negative Normal Negative [facility] ([place]) Comment on above: Order Comment: Micro scopic performed on unspun urine; QNS. Performed By: #### U SUNNY ROSS #### [address] [address] XR CHEST 1 VIEWon 01-07-2024 XR CHEST 1 VIEW ORIGINAL EXAMINATION: ONE XRAY VIEW OF THE CHEST 01/07/2024 2:44 pm COMPARISON: Chest x-ray 07/2022, CTA chest 05/25/2022. HISTORY: ORDERING SYSTEM PROVIDED HISTORY: Reason for Exam: chest pain FINDINGS: Cardiomediastinal silhouette is within normal limits. No focal consolidation, pleural effusion or pneumothorax. The osseous structures appear intact. IMPRESSION: No acute cardiopulmonary process. Interpreted by: Alex Cade Preliminary Report By: Alex Cade Electronically signed By Alex Cade Dictated Date: 01/07/2024 2:48:23 PM Prelim Date: 01/07/2024 2:49:22 PM Sign Date: 01/07/2024 2:49:22 PM Ordering Provider: REID Tobar [facility] ([place]) MA MAMMOGRAM SCREENING BILAT ERAL W/TOMOon 08-14-2023 MA MAMMOGRAM SCREENING BILATERAL W/DENICE ORIGINAL FROM: ASHLEY [address] [address] PROCEDURE FOR: LES ARCOS [address] [place] [address] Home: PID#: [id number] Exam#: [id number] : 1975 Age: 47 TO: MEHRAN KNIGHT DO [address] [address] Fax: NO FAX EXAMINATION: SCREENING DIGITAL BILATERAL MAMMOGRAM WITH TOMOSYNTHESIS, 08/13/2023 2:54 pm TECHNIQUE: Screening mammography of the bilateral breasts was performed with tomosynthesis. 2D standard and 3D tomosynthesis combination imaging performed through both breasts in the MLO and CC projection. Computer aided detection was utilized in the interpretation of this exam. COMPARISON: November 02, 2013 HISTORY: Breast cancer screening. FINDINGS: BREAST DENSITY: Scattered fibroglandular tissue Bilateral benign-type calcifications. There is no significant mass, architectural distortion or microcalcification. Fibroglandular pattern is stable. IMPRESSION: No mammographic evidence of malignancy. Continued screening with annual mammograms is recommended. Noel Costello risk calculations, generated with the history provided, report this patient's 10 year risk and lifetime risk for developing breast cancer at 2.2% and 9.9%, respectively. Based on this assessment tool, if the patient's calculated lifetime risk is below 20%, then the patient is considered at average risk for developing breast cancer. If the patient's calculated lifetime risk is at or above 20%, then the patient is considered high risk for developing breast cancer and may be a candidate for supplemental breast MRI screening in addition to annual mammographic screening per the [employer]. BIRADS: MAMMOGRAM BI-RADS: 2: Benign finding RECALL: 1 year screening RECALL TYPE: mammo LETTER SENT: Normal BI-RADS 1 and 2 Interpreted by: Lacey Swartz Preliminary Report By: Lacey Swartz Electronically signed By Lacey Swartz Dictated Date: 08/14/2023 11:10:45 AM Prelim Date: 08/14/2023 11:23:16 AM Sign Date: 08/14/2023 11:23:16 AM Ordering Provider: MEHRAN KNIGHT [employer]: JESÚS RAY (R)(M) letter sent: Normal BI-RADS 1 and 2 Mammogram BI-RADS: 2 Benign Normal [facility] ([place]) .Auto Diffon 04-10-2023 Basophil, Absolute 0.1 10 3/mcL Normal 0.0-0.2 [facility] ([place]) Comment on above: Performed By: #### C BC, GFR, BMP, LYRIC MCCULLOUGH MDW #### [place] [address] [address] Basophils/100 WBC (Bld) 1.2 % Normal 0.0-2.5 [facility] ([place]) Comment on above: Performed By: #### C BC, GFR, BMP, LYRIC MCCULLOUGH MDW #### [place] [id number] [place], [place] [address] Eosinophil, Absolute 0.2 10 3/mcL Normal 0.0-0.4 [facility] ([place]) Comment on above: Performed By: #### C BC, GFR, BMP, ANEULYRIC MDW #### [address] [address] Eosinophils/100 WBC (Bld) 2.3 % Normal 0.0-7.0 [facility] ([place]) Comment on above: Performed By: #### C BC, GFR, BMP, ANEULYRIC MDW #### [address] [address] Lymphocyte, Absolute 1.5 10 3/mcL Normal 0.8-3.9 [facility] ([place]) Comment on above: Performed By: #### C BC, GFR, BMP, ANEULYRIC MDW #### [address] [address] Lymphocytes/100 WBC (Bld) 22.2 % Normal 10.0-50.0 [facility] ([place]) Comment on above: Performed By: #### C BC, GFR, BMP, ANEULYRIC MDW #### [address] [address] Monocyte, Absolute 0.6 10 3/mcL Normal 0.2-1.0 [facility] ([place]) Comment on above: Performed By: #### C BC, GFR, BMP, LYRIC MCCULLOUGH MDW #### [address] [address] Monocytes/100 WBC (Bld) 9.6 % Normal 1.7-13.0 [facility] ([place]) Comment on above: Performed By: #### C BC, GFR, BMP, LYRIC MCCULLOUGH MDW #### [address] [address] Neutrophils/100 WBC (Bld) 64.7 % Normal 37.0-80.0 [facility] ([place]) Comment on above: Performed By: #### C BC, GFR, BMP, ANEULYRIC MDW #### [address] [address] .GFRon 04-10-2023 GFR Non- 52 ml/min/1.73sqm Normal [facility] ([place]) Comment on above: Result Comment: GFR Population mean for , Non- Americans Ages 20-29 = 116 mL/min/1.73 sq.m. Ages 30-39 = 107 mL/min/1.73 sq.m. Ages 40-49 = 99 mL/min/1.73 sq.m. Ages 50-59 = 93 mL/min/1.73 sq.m. Ages 60-69 = 85 mL/min/1.73 sq.m. Ages 70+ = 75 mL/min/1.73 sq.m. Chronic Kidney Disease: Less than 60 mL/min/1.73 square meters End Stage Renal Disease: Less than 15 mL/min/1.73 square meters Performed By: #### C BC, GFR, BMP, LYRIC MCCULLOUGH MDW #### [place] [address] [address] GFR 63 ml/min/1.73sqm Normal [facility] ([place]) Comment on above: Result Comment: GFR Population mean for , Non- Americans Ages 20-29 = 116 mL/min/1.73 sq.m. Ages 30-39 = 107 mL/min/1.73 sq.m. Ages 40-49 = 99 mL/min/1.73 sq.m. Ages 50-59 = 93 mL/min/1.73 sq.m. Ages 60-69 = 85 mL/min/1.73 sq.m. Ages 70+ = 75 mL/min/1.73 sq.m. Chronic Kidney Disease: Less than 60 mL/min/1.73 square meters End Stage Renal Disease: Less than 15 mL/min/1.73 square meters Performed By: #### C BC, GFR, BMP, LYRIC MCCULLOUGH MDW #### [place] [address] [address] .MDWon 04-10-2023 Monocyte Distribution Width 18.33 Normal 0.00-20.00 [facility] ([place]) Comment on above: Result Comment: For ED adult patients suspected of sepsis, MDW<=20.0 does not rule out sepsis or risk of sepsis Performed By: #### C BC, GFR, BMP, LYRIC MCCULLOUGH MDW #### [address] [address] .NEUABSon 04-10-2023 Neutrophil, Absolute 4.3 10 3/mcL Normal 2.9-6.2 [facility] ([place]) Comment on above: Performed By: #### C BC, GFR, BMP, LYRIC MCCULLOUGH MDW #### [address] [address] BMPon 04-10-2023 BUN/Creatinine Ratio 13 ratio Normal 7-27 [facility] ([place]) Comment on above: Performed By: #### C BC, GFR, BMP, LYRIC MCCULLOUGH MDW #### [address] [address] Calcium [Mass/Vol] 9.1 mg/dL Normal 8.4-10.2 [facility] ([place]) Comment on above: Performed By: #### C BC, GFR, BMP, LYRIC MCCULLOUGH MDW #### [address] [address] Chloride [Moles/Vol] 104 mmol/L Normal 98-107 [facility] ([place]) Comment on above: Performed By: #### C BC, GFR, BMP, LYRIC MCCULLOUGH MDW #### [address] [address] CO2 [Moles/Vol] 27 mmol/L Normal 22-29 [facility] ([place]) Comment on above: Performed By: #### C BC, GFR, BMP, LYRIC MCCULLOUGH MDW #### [address] [address] Creatinine [Mass/Vol] 1.11 mg/dL High 0.55-1.02 [facility] ([place]) Comment on above: Performed By: #### C BC, GFR, BMP, LYRIC MCCULLOUGH MDW #### [address] [address] Electrolyte Balance 10.0 mEq/L Normal 4.0-15.0 [facility] ([place]) Comment on above: Performed By: #### C BC, GFR, BMP, LYRIC MCCULLOUGH MDW #### [address] [address] Glucose [Mass/Vol] 84 mg/dL Normal 70-105 [facility] ([place]) Comment on above: Performed By: #### C BC, GFR, BMP, LYRIC MCCULLOUGH MDW #### [address] [address] Potassium [Moles/Vol] 4.2 mmol/L Normal 3.5-5.1 [facility] ([place]) Comment on above: Performed By: #### C BC, GFR, BMP, LYRIC MCCULLOUGH MDW #### [address] [address] Sodium [Moles/Vol] 141 mmol/L Normal 136-145 [facility] ([place]) Comment on above: Performed By: #### C BC, GFR, LLUVIA, LYRIC MCCULLOUGH MDW #### [address] [address] Urea nitrogen [Mass/Vol] 14 mg/dL Normal 7-18 [facility] ([place]) Comment on above: Performed By: #### C BC, GFR, BMP, LYRIC MCCULLOUGH MDW #### [address] [address] CBCon 04-10-2023 Erythrocyte distribution width (RBC) [Ratio] 17.3 % High 11.5-14.5 [facility] ([place]) Comment on above: Performed By: #### C BC, GFR, BMP, LYRIC MCCULLOUGH MDW #### [address] [address] Hematocrit (Bld) [Volume fraction] 36.8 % Low 37.0-47.0 [facility] ([place]) Comment on above: Performed By: #### C BC, GFR, BMP, LYRIC MCCULLOUGH MDW #### [address] [address] Hgb 11.7 G/dL Low 12.0-16.0 [facility] ([place]) Comment on above: Performed By: #### C BC, GFR, BMP, LYRIC MCCULLOUGH MDW #### [address] [address] MCH (RBC) [Entitic mass] 25.3 pg Low 27.0-31.2 [facility] ([place]) Comment on above: Performed By: #### C BC, GFR, BMP, LYRIC MCCULLOUGH MDW #### [place] [address] MCHC 31.9 G/dL Low 33.0-37.0 [facility] ([place]) Comment on above: Performed By: #### C BC, GFR, BMP, LYRIC MCCULLOUGH MDW #### [place] [address] MCV (RBC) [Entitic vol] 79.3 fL Low 80.0-94.0 [facility] ([place]) Comment on above: Performed By: #### C BC, GFR, LLUVIA, LYRIC MCCULLOUGH MDW #### [address] [address] Platelet 232 10 3/mcL Normal 130-400 [facility] ([place]) Comment on above: Performed By: #### C BC, GFR, BMP, LYRIC MCCULLOUGH MDW #### [address] [address] Platelet mean volume (Bld) [Entitic vol] 7.8 fL Normal 7.4-10.4 [facility] ([place]) Comment on above: Performed By: #### C BC, GFR, BMP, LYRIC MCCULLOUGH MDW #### [place] [id number] RBC 4.63 10 6/mcL Normal 4.20-5.40 [facility] ([place]) Comment on above: Performed By: #### C BC, GFR, BMP, LYRIC MCCULLOUGH MDW #### [place] [address] [place], [place] [address] WBC 6.6 10 3/mcL Normal 4.6-10.8 [facility] ([place]) Comment on above: Performed By: #### C BC, GFR, SADIA TEIXEIRA ADIFF, MDW #### [place] [address] [place], [place] [address] LABORATORYOrdered By: SYSTEM SYSTEM on 04-10-2023 Basophil, Absolute 0.1 103/mcL Normal 0.0 - 0.2 10^3/mcL AO Workflow SS Basophils/100 WBC (Bld) 1.2 % Normal 0.0 - 2.5 % AO Workflow SS Calcium [Mass/Vol] 9.1 mg/dL Normal 8.4 - 10. 2 mg/dL AO ADM SS Chloride [Moles/Vol] 104 mmol/L Normal 98 - 10 7 mmol/L AO ADM SS CO2 [Moles/Vol] 27 mmol/L Normal 22 - 29 mmol/L AO ADM SS Creatinine [Mass/Vol] 1.11 mg/dL High 0.55 - 1.02 mg/dL AO ADM SS Electrolyte Balance 10.0 mEq/L Normal 4.0 - 15 .0 mEq/L AO ADM SS Eosinophil, Absolute 0.2 103/mcL Normal 0.0 - 0 .4 10^3/mcL AO Workflow SS Eosinophils/100 WBC (Bld) 2.3 % Normal 0.0 - 7.0 % AO Workflow SS Erythrocyte distribution width (RBC) [Ratio] 17.3 % High 11.5 - 14.5 % AO Workflow SS GFR/1.73 sq M.predicted among blacks MDRD (S/P/Bld) [Vol rate/Area] 63 ml/min/1.73sqm Invalid Interpretation Code AO Chemistry S Comment on above: Interpretive Data: GFR Population mean for , Non- Americans Ages 20-29 = 116 mL/min/1.73 sq.m. Ages 30-39 = 107 mL/min/1.73 sq.m. Ages 40-49 = 99 mL/min/1.73 sq.m. Ages 50-59 = 93 mL/min/1.73 sq.m. Ages 60-69 = 85 mL/min/1.73 sq.m. Ages 70+ = 75 mL/min/1.73 sq.m. Chronic Kidney Disease: Less than 60 mL/min/1.73 square meters End Stage Renal Disease: Less than 15 mL/min/1.73 square meters GFR/1.73 sq M.predicted among non-blacks MDRD (S/P/Bld) [Vol rate/Area] 52 ml/min/1.73sqm Invalid Interpretation Code AO Chemistry S Comment on above: Interpretive Data: GFR Population mean for , Non- Americans Ages 20-29 = 116 mL/min/1.73 sq.m. Ages 30-39 = 107 mL/min/1.73 sq.m. Ages 40-49 = 99 mL/min/1.73 sq.m. Ages 50-59 = 93 mL/min/1.73 sq.m. Ages 60-69 = 85 mL/min/1.73 sq.m. Ages 70+ = 75 mL/min/1.73 sq.m. Chronic Kidney Disease: Less than 60 mL/min/1.73 square meters End Stage Renal Disease: Less than 15 mL/min/1.73 square meters Glucose [Mass/Vol] 84 mg/dL Normal 70 - 105 mg/dL AO ADM SS Hematocrit (Bld) [Volume fraction] 36.8 % Low 37.0 - 47.0 % AO Workflow SS Hemoglobin (Bld) [Mass/Vol] 11.7 G/dL Low 12.0 - 16.0 G/dL AO Workflow SS Lymphocyte, Absolute 1.5 103/mcL Normal 0.8 - 3 .9 10^3/mcL AO Workflow SS Lymphocytes/100 WBC (Bld) 22.2 % Normal 10.0 - 50.0 % AO Workflow SS MCH (RBC) [Entitic mass] 25.3 pg Low 27.0 - 31.2 pg AO Workflow SS MCHC 31.9 G/dL Low 33.0 - 37.0 G/dL AO Workflow SS MCV (RBC) [Entitic vol] 79.3 fL Low 80.0 - 94.0 fL AO Workflow SS Monocyte distribution width Auto (Bld) [Entitic vol] 18.33 1 Normal 0.00 - 20.00 AO Workflow SS Comment on above: Result Comment: For ED adult patients suspected of sepsis, MDW<=20.0 does not rule out sepsis or risk of sepsis Monocyte, Absolute 0.6 103/mcL Normal 0.2 - 1.0 10^3/mcL AO Workflow SS Monocytes/100 WBC (Bld) 9.6 % Normal 1.7 - 13.0 % AO Workflow SS Neutrophil, Absolute 4.3 103/mcL Normal 2.9 - 6 .2 10^3/mcL AO Workflow SS Neutrophils/100 WBC (Bld) 64.7 % Normal 37.0 - 80.0 % AO Workflow SS Platelet mean volume (Bld) [Entitic vol] 7.8 fL Normal 7.4 - 10.4 fL AO Workflow SS Platelets (Bld) [#/Vol] 232 103/mcL Normal 130 - 400 10^3/mcL AO Workflow SS Potassium [Moles/Vol] 4.2 mmol/L Normal 3.5 - 5.1 mmol/L AO ADM SS RBC (Bld) [#/Vol] 4.63 106/mcL Normal 4.20 - 5.4 0 10^6/mcL AO Workflow SS Sodium [Moles/Vol] 141 mmol/L Normal 136 - 145 mmol/L AO ADM SS Urea nitrogen [Mass/Vol] 14 mg/dL Normal 7 - 18 mg/dL AO ADM SS Urea nitrogen/Creatinine [Mass ratio] 13 ratio Normal 7 - 27 ratio AO ADM SS WBC (Bld) [#/Vol] 6.6 103/mcL Normal 4.6 - 10.8 10^3/mcL AO Workflow SS LABORATORYOrdered By: SYSTEM SYSTEM on 12-06-2022 Basophil, Absolute 0.1 103/mcL Invalid Interpretation Code 0.0 - 0.2 10^3/mcL AO Workflow SS Basophils/100 WBC (Bld) 1.4 % Invalid Interpretation Code 0.0 - 2.5 % AO Workflow SS Calcium [Mass/Vol] 8.4 mg/dL Invalid Interpretation Code 8.4 - 10.2 mg/dL AO ADM SS Chloride [Moles/Vol] 104 mmol/L Invalid Interpretation Code 98 - 107 mmol/L AO ADM SS CO2 [Moles/Vol] 30 mmol/L Invalid Interpretation Code 22 - 29 mmol/L AO ADM SS Creatinine [Mass/Vol] 0.92 mg/dL Invalid Interpretation Code 0.55 - 1.02 mg/dL AO ADM SS Electrolyte Balance 8.0 mEq/L Invalid Interpretation Code 4.0 - 15.0 mEq/L AO ADM SS Eosinophil, Absolute 0.3 103/mcL Invalid Interpretation Code 0.0 - 0.4 10^3/mcL AO Workflow SS Eosinophils/100 WBC (Bld) 4.7 % Invalid Interpretation Code 0.0 - 7.0 % AO Workflow SS Erythrocyte distribution width (RBC) [Ratio] 17.9 % Invalid Interpretation Code 11.5 - 14.5 % AO Workflow SS GFR/1.73 sq M.predicted among blacks MDRD (S/P/Bld) [Vol rate/Area] 79 ml/min/1.73sqm Invalid Interpretation Code AO Chemistry S Comment on above: Interpretive Data: GFR Population mean for , Non- Americans Ages 20-29 = 116 mL/min/1.73 sq.m. Ages 30-39 = 107 mL/min/1.73 sq.m. Ages 40-49 = 99 mL/min/1.73 sq.m. Ages 50-59 = 93 mL/min/1.73 sq.m. Ages 60-69 = 85 mL/min/1.73 sq.m. Ages 70+ = 75 mL/min/1.73 sq.m. Chronic Kidney Disease: Less than 60 mL/min/1.73 square meters End Stage Renal Disease: Less than 15 mL/min/1.73 square meters GFR/1.73 sq M.predicted among non-blacks MDRD (S/P/Bld) [Vol rate/Area] 65 ml/min/1.73sqm Invalid Interpretation Code AO Chemistry S Comment on above: Interpretive Data: GFR Population mean for , Non- Americans Ages 20-29 = 116 mL/min/1.73 sq.m. Ages 30-39 = 107 mL/min/1.73 sq.m. Ages 40-49 = 99 mL/min/1.73 sq.m. Ages 50-59 = 93 mL/min/1.73 sq.m. Ages 60-69 = 85 mL/min/1.73 sq.m. Ages 70+ = 75 mL/min/1.73 sq.m. Chronic Kidney Disease: Less than 60 mL/min/1.73 square meters End Stage Renal Disease: Less than 15 mL/min/1.73 square meters Glucose [Mass/Vol] 100 mg/dL Invalid Interpretation Code 70 - 105 mg/dL AO ADM SS Hematocrit (Bld) [Volume fraction] 36.8 % Invalid Interpretation Code 37.0 - 47.0 % AO Workflow SS Hemoglobin (Bld) [Mass/Vol] 11.8 G/dL Invalid Interpretation Code 12.0 - 16.0 G/dL AO Workflow SS Lymphocyte, Absolute 1.7 103/mcL Invalid Interpretation Code 0.8 - 3.9 10^3/mcL AO Workflow SS Lymphocytes/100 WBC (Bld) 29.9 % Invalid Interpretation Code 10.0 - 50.0 % AO Workflow SS MCH (RBC) [Entitic mass] 25.4 pg Invalid Interpretation Code 27.0 - 31.2 pg AO Workflow SS MCHC 31.9 G/dL Invalid Interpretation Code 33.0 - 37.0 G/dL AO Workflow SS MCV (RBC) [Entitic vol] 79.7 fL Invalid Interpretation Code 80.0 - 94.0 fL AO Workflow SS Monocyte distribution width Auto (Bld) [Entitic vol] 15.96 1 Invalid Interpretation Code 0.00 - 20.00 AO Workflow SS Comment on above: Result Comment: For ED adult patients suspected of sepsis, MDW<=20.0 does not rule out sepsis or risk of sepsis Monocyte, Absolute 0.6 103/mcL Invalid Interpretation Code 0.2 - 1.0 10^3/mcL AO Workflow SS Monocytes/100 WBC (Bld) 10.5 % Invalid Interpretation Code 1.7 - 13.0 % AO Workflow SS Neutrophil, Absolute 3.1 103/mcL Invalid Interpretation Code 2.9 - 6.2 10^3/mcL AO Workflow SS Neutrophils/100 WBC (Bld) 53.5 % Invalid Interpretation Code 37.0 - 80.0 % AO Workflow SS Platelet mean volume (Bld) [Entitic vol] 7.4 fL Invalid Interpretation Code 7.4 - 10.4 fL AO Workflow SS Platelets (Bld) [#/Vol] 326 103/mcL Invalid Interpretation Code 130 - 400 10^3/mcL AO Workflow SS Potassium [Moles/Vol] 3.8 mmol/L Invalid Interpretation Code 3.5 - 5.1 mmol/L AO ADM SS RBC (Bld) [#/Vol] 4.62 106/mcL Invalid Interpretation Code 4.20 - 5.40 10^6/mcL AO Workflow SS Sodium [Moles/Vol] 142 mmol/L Invalid Interpretation Code 136 - 145 mmol/L AO ADM SS Troponin I.cardiac DL <= 0.01 ng/mL [Mass/Vol] 4.9 ng/L Invalid Interpretation Code 0.0 - 51.4 ng/L AO ADM SS Urea nitrogen [Mass/Vol] 10 mg/dL Invalid Interpretation Code 7 - 18 mg/dL AO ADM SS Urea nitrogen/Creatinine [Mass ratio] 11 ratio Invalid Interpretation Code 7 - 27 ratio AO ADM SS WBC (Bld) [#/Vol] 5.8 103/mcL Invalid Interpretation Code 4.6 - 10.8 10^3/mcL AO Workflow SS LABORATORYOrdered By: Elsie Wills on 12-06-2022 INR Coag (PPP) [Relative time] 1.5 {INR} Invalid Interpretation Code AO [facility] SS Comment on above: Interpretive Data: Storm hernandez [employer] (CHEST, 1992, [id number]) recommended therapeutic range for oral anticoagulant therapy is: LOW RISK: Prophylaxis of venous thrombosis INR: 2.0-3.0 Treatment of pulmonary embolism 2.0-3.0 Prevention of systemic embolism 2.0-3.0 HIGH RISK: Mechanical prosthetic valves 2.5-3.5 PT Coag (PPP) [Time] 16.8 s Invalid Interpretation Code 9.1 - 14.2 seconds AO [facility] SS LABORATORYOrdered By: uAdie Esparza on 09-07-2022 Appearance (U) Cloudy *ABN* (09/07/22 1:35 PM) Invalid Interpretation Code Clear AO Auto Urine SS Bilirubin Ql (U) Negative (09/07/22 1:35 PM) Invalid Interpretation Code Negative AO Auto Urine SS Color (U) [place] Invalid Interpretation Code AO Auto Urine SS Glucose Test strip (U) [Mass/Vol] Negative Invalid Interpretation Code Negativemg/dL AO Auto Urine SS Hemoglobin Auto test strip (U) [Mass/Vol] Large *ABN* (09/07/22 1:35 PM) Invalid Interpretation Code Negative AO Auto Urine SS Ketones Ql (U) Negative Invalid Interpretation Code Negativemg/dL AO Auto Urine SS UA Leuk Est Negative (09/07/22 1:35 PM) Invalid Interpretation Code Negative AO Auto Urine SS UA Nitrite Negative (09/07/22 1:35 PM) Invalid Interpretation Code Negative AO Auto Urine SS UA pH 5.5 (09/07/22 1:35 PM) Invalid Interpretation Code 5.0 - 8.0 AO Auto Urine SS UA Protein 30 mg/dL Invalid Interpretation Code Negativemg/dL AO Auto Urine SS UA RBC LOADED /HPF Invalid Interpretation Code None Seen/HPF AO Auto Urine SS UA Spec Grav 1.025 (09/07/22 1:35 PM) Invalid Interpretation Code 1.015-1.025 AO Auto Urine SS UA Specimen Type Clean Catch (09/07/22 1:35 PM) Invalid Interpretation Code AO Auto Urine SS UA Squam Epithelial 0-5 /HPF Invalid Interpretation Code None Seen/HPF AO Auto Urine SS UA Trichomonas Rare /HPF Invalid Interpretation Code AO Auto Urine SS UA Urobilinogen 0.2 E.U./dL Invalid Interpretation Code 0.2-1.0E.U./d L AO Auto Urine SS WBC LM.HPF (Urine sed) [#/Area] 0-5 /HPF Invalid Interpretation Code None Seen/HPF AO Auto Urine SS LABORATORYOrdered By: Eduard Samuels on 08-09-2021 Albumin DL <= 20 mg/L (U) [Mass/Vol] 72605 mcg/dL Invalid Interpretation Code AO ADM SS Albumin/Creatinine DL <= 20 mg/L (U) [Mass ratio] 262 mcg/mg Invalid Interpretation Code 0 - 30 mcg/mg AO ADM SS Creatinine (U) [Mass/Vol] 106.4 mg/dL Invalid Interpretation Code 28.0 - 117.0 mg/dL AO ADM SS LABORATORYOrdered By: Immanuel Root on 08-09-2021 Appearance (U) Clear (08/09/21 12:13 PM) Invalid Interpretation Code Clear AO Auto Urine SS Bilirubin Ql (U) Negative (08/09/21 12:13 PM) Invalid Interpretation Code Negative AO Auto Urine SS Color (U) Yellow (08/09/21 12:13 PM) Invalid Interpretation Code AO Auto Urine SS Glucose Test strip (U) [Mass/Vol] Negative Invalid Interpretation Code Negativemg/dL AO Auto Urine SS Hemoglobin Auto test strip (U) [Mass/Vol] Negative (08/09/21 12:13 PM) Invalid Interpretation Code Negative AO Auto Urine SS Ketones Ql (U) Negative Invalid Interpretation Code Negativemg/dL AO Auto Urine SS UA Coarse Granular Casts 0-5 /LPF Invalid Interpretation Code AO Auto Urine SS UA Leuk Est Trace *ABN* (08/09/21 12:13 PM) Invalid Interpretation Code Negative AO Auto Urine SS UA Nitrite Negative (08/09/21 12:13 PM) Invalid Interpretation Code Negative AO Auto Urine SS UA pH 8.0 (08/09/21 12:13 PM) Invalid Interpretation Code 5.0 - 8.0 AO Auto Urine SS UA Protein 30 mg/dL Invalid Interpretation Code Negativemg/dL AO Auto Urine SS UA RBC 0-5 /HPF Invalid Interpretation Code None Seen/HPF AO Auto Urine SS UA Spec Grav 1.020 (08/09/21 12:13 PM) Invalid Interpretation Code 1.015-1.025 AO Auto Urine SS UA Specimen Type Clean Catch (08/09/21 12:13 PM) Invalid Interpretation Code AO Auto Urine SS UA Squam Epithelial 10-15 /HPF Invalid Interpretation Code None Seen/HPF AO Auto Urine SS UA Urobilinogen 0.2 E.U./dL Invalid Interpretation Code 0.2-1.0E.U./d L AO Auto Urine SS WBC LM.HPF (Urine sed) [#/Area] 0-5 /HPF Invalid Interpretation Code None Seen/HPF AO Auto Urine SS LABORATORYOrdered By: Ce Tiwari on 08-09-2021 Albumin BCP dye [Mass/Vol] 3.7 G/dL Invalid Interpretation Code 3.5 - 5.0 G/dL AO ADM SS Albumin/Globulin [Mass ratio] 1.2 {ratio} Invalid Interpretation Code 1.1 - 2.5 ratio AO ADM SS ALP [Catalytic activity/Vol] 85 U/L Invalid Interpretation Code 40 - 135 U/L AO ADM SS ALT With P-5'-P [Catalytic activity/Vol] 29 U/L Invalid Interpretation Code 14 - 59 U/L AO ADM SS AST With P-5'-P [Catalytic activity/Vol] 13 U/L Invalid Interpretation Code 10 - 40 U/L AO ADM SS Bilirubin [Mass/Vol] 0.3 mg/dL Invalid Interpretation Code 0.2 - 1.0 mg/dL AO ADM SS Calcium [Mass/Vol] 9.0 mg/dL Invalid Interpretation Code 8.4 - 10.2 mg/dL AO ADM SS Chloride [Moles/Vol] 103 mmol/L Invalid Interpretation Code 98 - 107 mmol/L AO ADM SS Cholesterol [Mass/Vol] 141 mg/dL Invalid Interpretation Code 0 - 200 mg/dL AO ADM SS Cholesterol in HDL [Mass/Vol] 38 mg/dL Invalid Interpretation Code 40 - 60 mg/dL AO ADM SS Cholesterol in LDL [Mass/Vol] 83 mg/dL Invalid Interpretation Code 0 - 130 mg/dL AO ADM SS CO2 [Moles/Vol] 32 mmol/L Invalid Interpretation Code 22 - 29 mmol/L AO ADM SS Creatinine [Mass/Vol] 0.77 mg/dL Invalid Interpretation Code 0.55 - 1.02 mg/dL AO ADM SS Electrolyte Balance 7.0 mEq/L Invalid Interpretation Code 4.0 - 15.0 mEq/L AO ADM SS Globulin 3.2 G/dL Invalid Interpretation Code AO ADM SS Glucose [Mass/Vol] 84 mg/dL Invalid Interpretation Code 70 - 105 mg/dL AO ADM SS HbA1c (Bld) [Mass fraction] 5.6 % Invalid Interpretation Code 4.3 - 6.4 % AO ADM SS Potassium [Moles/Vol] 4.0 mmol/L Invalid Interpretation Code 3.5 - 5.1 mmol/L AO ADM SS Protein [Mass/Vol] 6.9 G/dL Invalid Interpretation Code 6.4 - 8.2 G/dL AO ADM SS Sodium [Moles/Vol] 142 mmol/L Invalid Interpretation Code 136 - 145 mmol/L AO ADM SS Triglyceride [Mass/Vol] 102 mg/dL Invalid Interpretation Code 0 - 150 mg/dL AO ADM SS TSH Qn 0.81 m[IU]/L Invalid Interpretation Code 0.36 - 3.74 mcIU/mL AO ADM SS Urea nitrogen [Mass/Vol] 8 mg/dL Invalid Interpretation Code 7 - 18 mg/dL AO ADM SS Urea nitrogen/Creatinine [Mass ratio] 10 ratio Invalid Interpretation Code 7 - 27 ratio AO ADM SS LABORATORYOrdered By: SYSTEM SYSTEM on 08-09-2021 Cobalamin (Vitamin B12) [Mass/Vol] pg/mL Invalid Interpretation Code 211 - 911 pg/mL AH ADM SS GFR 97 ml/min/1.73sqm Invalid Interpretation Code AO Chemistry S GFR Non- 80 ml/min/1.73sqm Invalid Interpretation Code AO Chemistry S PROGRESSon 07-08-2020 PROGRESS HNO ID: [id number] Author: Thi Gonzalez Service: ? Author Type: Physician Type: Progress Notes Filed: 07/08/2020 2:16 PM Note Text: VIRTUAL VISIT PROGRESS NOTE This is a virtual visit using Audio only. It required patient-provider interaction for the medical decision making as documented below. 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 She has had a previous left brachial thrombectomy and a R LE thrombectomy at outside institutions due to hypercoaguable state. No current symptoms, continues coumadin. 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 - Arterial thrombosis (HCC) - Essential hypertension - Hyperlipidemia - Paresthesia - Shoulder pain PAST SURGICAL HISTORY Procedure Laterality Date - PAST SURGICAL HISTORY OF 06/14/2014 LEFT BRACHIAL EMBOLECTOMY - TONSILLECTOMY HX 2000 FAMILY HISTORY Problem Relation Age of Onset - Hypertension Mother - Hypertension Maternal Grandfather Social History Tobacco Use - Smoking status: Never Smoker - Smokeless tobacco: Never Used Substance Use Topics - Alcohol use: No - Drug use: Not on file Current Outpatient Medications Medication Sig - SUMAtriptan (IMITREX) 100 mg tablet - atorvastatin (LIPITOR) 20 mg tablet Take 20 mg by mouth once daily. - warfarin (COUMADIN) 10 mg tablet Take 10 mg by mouth once daily. Taking 12mg per day - Diltiazem HCl 360 mg 24 hr capsule Take 360 mg by mouth once daily. No current facility-administere d medications for this visit. ALLERGIES No Known Allergies REVIEW OF SYSTEMS: All other ROS: negative PHYSICAL EXAMINATION: VIDEO EXAM: (if completed, performed via video enabled technology) No exam performed ASSESSMENT: (I74.9) Arterial thromboembolism (HCC) (primary encounter diagnosis) PLAN: Ms. Arcos remains symptom free with stable normal PVRs. She will follow up in 1 year with a repeat PVR study. There are no Patient Instructions on file for this visit. It was necessary to convert the virtual visit to a telephone encounter due to technical difficulties. Thi Gonzalez MD Normal [facility] Otheron 06-17-2020 [facility] US ART PVR LOWER W/ EXERCISE on 06-17-2020 US ART PVR LOWER W/ EXERCISE Final Report DATE OF EXAM: Jun 17 2020 12:00AM A2U 1108 - US ART PVR LOWER W/ EXERCISE / PROCEDURE REASON: miki Physician Interpretation Non-Invasive Vascular Laboratory [facility] Lower Extremity Arterial Physiology Study Bilateral/Complete Date of service/time: 06/17/2020 9:35:00 AM Name: MS. LES ARCOS Date of : 1975 Age: 44 years Gender: F Medical History Tobacco: No Hypertension: Yes Clinical Indication Claudication. TECHNIQUE -------- An arterial physiological examination was performed, including measurement of blood pressures using continuous wave Doppler and recording of plethysmographic with or without Doppler waveforms at the below-mentioned limb segments. FINDINGS -------- RIGHT SIDE AT REST Right Pressures Brachial: 155 mmHg High thigh: Non-compressible arteries. Low thigh: 191 mmHg Calf: 183 mmHg Ankle dorsalis pedis: 161 mmHg GENA: 1.04 Ankle posterior tibial: 196 mmHg GENA: 1.26 Digit: 134 mmHg Right PVR Waveforms High thigh: Mildly dampened. Low thigh: Normal. Calf: Normal. Ankle: Normal. Transmetatarsal: Mildly dampened. Digit: Mildly dampened. LEFT SIDE AT REST Left Pressures Brachial: 150 mmHg High thigh: Non-compressible arteries. Low thigh: 209 mmHg Calf: 184 mmHg Ankle dorsalis pedis: 200 mmHg GENA: 1.29 Ankle posterior tibial: 174 mmHg GENA: 1.12 Digit: 143 mmHg Left PVR Waveforms High thigh: Mildly dampened. Low thigh: Normal. Calf: Normal. Ankle: Normal. Transmetatarsal: Normal. Digit: Mildly dampened. POST EXERCISE Treadmill grade: 10.0 rate: 1.5 mph Onset of claudication: 0 min 0 sec Maximal walking time: 5 min 0 sec No symptoms with exercise. Reason test was terminated: end of protocol. Post Exercise: Immediate Right Pressures and Waveform Brachial: 157 mmHg Ankle: 198 mmHg GENA: 1.26 Ankle waveform: Normal. Left Pressures and Waveform Brachial: 157 mmHg Ankle: 199 mmHg GENA: 1.27 Ankle waveform: Normal. IMPRESSION RIGHT SIDE Resting right ankle brachial index: 1.26 Post exercise right ankle brachial index: 1.26 Right toe brachial index: 0.86 Normal ankle brachial index at rest in the right leg. Right ankle: Normal at rest. No significant change in pressure and/or ankle-brachial index with exercise. LEFT SIDE Resting left ankle brachial index: 1.29 Post exercise left ankle brachial index: 1.27 Left toe brachial index: 0.92 Normal ankle brachial index at rest in the left leg. Left ankle: Normal at rest. No significant change in pressure and/or ankle-brachial index with exercise. Technologist: Mareila Benitez Ordering physician: MO WILSON Interpreting physician: Mayank Berrios MD Final RP Ship Officer: JESSICA Transcribe Date/Time: Jun 17 2020 9:35A Dictated by : MAYANK BERRIOS MD This examination was interpreted and the report reviewed and electronically signed by: MAYANK BERRIOS MD on Jun 17 2020 2:12PM EST Normal [facility] CNOVon 07-17-2019 CN Office Visit (AGVASACC) LES ARCOS ([id number]) 1975 F Date Time Provider Department 07/17/19 10:30 AM MO WILSON (SANTHOSH) MARIE During your visit today, we recorded the following information about you: Pulse Respiration Blood pressure Weight 70/minute 18/minute 122/74 104.3 kg Height 1.549 m Mo Wilson APRN.SANTHOSH TREVIZO 07/17/2019 10:54 AM Signed CHIEF COMPLAINT: History of arterial thromboembolism Patient is a 43 year old female, here for a followup evaluation of arterial thromboembolism. She was diagnosed with a hypercoagulable state - MTHR - after two episodes of spontaneous embolism requiring surgical embolectomy to her R leg (at [facility]) and her L arm (at [facility]). She is currently doing well with no complaints. Her coumadin levels are stable, with ongoing monitoring AND management by her PCP. Ms. Arcos does admit to some pain down her right leg and calf, but notes that it really has been that way every since her clot -it has not really progressed, and there is no rest pain or tissue loss. 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 - warfarin (COUMADIN) 10 mg tablet Take 10 mg by mouth once daily. Taking 12mg per day - Diltiazem HCl 360 mg 24 hr capsule Take 360 mg by mouth once daily. No current facility-administere d medications for this visit. ALLERGIES No Known Allergies BP 122/74 (BP Site: Left Arm, BP Position: Sitting, BP Cuff Size: Large Adult) Pulse 70 Resp 18 Ht 5' 1 (1.549 m) Wt 230 lb (104.3 kg) SpO2 98% BMI 43.46 kg/m? PHYSICAL EXAM: General appearance: Normal, healthy, well nourished, alert and cooperative individual, in no acute distress. Skin: No lesions, rashes or ulcerations; normal color and turgor. Head: Normocephalic, no masses, lesions, tenderness or abnormalities. Eyes: Anicteric sclera. Extraocular movements are intact. Ears: External ears normal, hearing is adequate. Lungs: Breathing is easy and unlabored. Extremities: No deformities, edema, skin discoloration, clubbing or cyanosis. Musculoskeletal: No joint swelling, deformity, or tenderness. Peripheral Pulses: Capillary refill <2secs, strong peripheral pulses. Neurologic: Gait normal. Sensation and strength grossly intact. IMPRESSION: Ms. Arcos continues to do well after her previous embolectomies. Her coumadin levels are being monitored closely for her hypercoagulable state, and she is compliant with all of her prescribed medication. We will continue to follow her annually with ABIs, as previously discussed with Dr. Gonzalez, if she wishes. She was encouraged to call with questions or if her symptoms return or worsen. PLAN: Follow up with ABIs in 1 year; Call with any questions, problems, or concerns. The patient is currently taking a statin: Yes The patient is currently taking aspirin: No. Reason: Coumadin I spent 15 minutes in the visit, with more than 50% of the total [id number] time of the visit in counseling/coordinat ion of care. Mo Wilson, INTEGRATION MANAGER Referring Provider: SELF [200] Allergies As of Date: 07/17/2019 (No Known Allergies) Date Reviewed: 07/17/2019 Reviewed by: Ricki Isidro - Fully Assessed Reason for Visit: Peripheral Vascular Disease (PVD) [3545] Follow Up Tests Results [770] Primary Visit Diagnosis:Arterial thromboembolism (HCC) [I74.9] Other Visit Diagnosis:Hypercoagu lable state (HCC) [D68.59] Order(s):US ARTERIAL PVR LOWER W/EXERCISE [[id number]] Order #: [id number] FUTURE Prescriptions as of 07/17/2019 Sig: SUMATRIPTAN 100 MG TABLET ATORVASTATIN 20 MG TABLET Take 20 mg by mouth once anais* WARFARIN 10 MG TABLET Take 10 mg by mouth once anais* DILTIAZEM CD 360 MG CAPSULE,E* Take 360 mg by mouth once melissa* Problem List As Of Date 07/17/2019 Noted Resolved Arterial thromboembolism (HCC) [I74.9] 07/03/2016 Medications Discontinued During This Encounter hydrochlorothiazide (HYDRODIURIL, ES* 06/27/2015 07/17/2019 Class: Historical Med Route: ORAL Sig: Take 25 mg by mouth once daily. Disc: Duplicate Entry HYDROcodone-acetamin ophen (NORCO) 5-* 04/04/2015 07/17/2019 Class: Historical Med Route: ORAL Sig: Take 1 tablet by mouth twice daily. Disc: Duplicate Entry warfarin (COUMADIN) 5 mg tablet 04/12/2015 07/17/2019 Class: Historical Med Sig: As directed Disc: Duplicate Entry warfarin (COUMADIN) 6 mg tablet 05/19/2015 07/17/2019 Class: Historical Med Sig: Disc: Duplicate Entry warfarin (COUMADIN) 2.5 mg tablet 07/17/2019 Class: Historical Med Sig: As directed Disc: Duplicate Entry Disposition: Return in about 1 year (around 07/16/2020). Follow-up and Disposition History Recorded Letter Text Encounter Status:Closed by MO WILSON CNP on 07/17/19 [facility] PROGRESSon 07-17-2019 PROGRESS HNO ID: [id number] Author: Mo Palacio) SANTHOSH Wilson Service: ? Author Type: Nurse Practitioner Type: Progress Notes Filed: 07/17/2019 10:54 AM Note Text: CHIEF COMPLAINT: History of arterial thromboembolism Patient is a 43 year old female, here for a followup evaluation of arterial thromboembolism. She was diagnosed with a hypercoagulable state - MTHR - after two episodes of spontaneous embolism requiring surgical embolectomy to her R leg (at [facility]) and her L arm (at [facility]). She is currently doing well with no complaints. Her coumadin levels are stable, with ongoing monitoring AND management by her PCP. Ms. Arcos does admit to some pain down her right leg and calf, but notes that it really has been that way every since her clot -it has not really progressed, and there is no rest pain or tissue loss. 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 - warfarin (COUMADIN) 10 mg tablet Take 10 mg by mouth once daily. Taking 12mg per day - Diltiazem HCl 360 mg 24 hr capsule Take 360 mg by mouth once daily. No current facility-administere d medications for this visit. ALLERGIES No Known Allergies BP 122/74 (BP Site: Left Arm, BP Position: Sitting, BP Cuff Size: Large Adult) Pulse 70 Resp 18 Ht 5' 1 (1.549 m) Wt 230 lb (104.3 kg) SpO2 98% BMI 43.46 kg/m? PHYSICAL EXAM: General appearance: Normal, healthy, well nourished, alert and cooperative individual, in no acute distress. Skin: No lesions, rashes or ulcerations; normal color and turgor. Head: Normocephalic, no masses, lesions, tenderness or abnormalities. Eyes: Anicteric sclera. Extraocular movements are intact. Ears: External ears normal, hearing is adequate. Lungs: Breathing is easy and unlabored. Extremities: No deformities, edema, skin discoloration, clubbing or cyanosis. Musculoskeletal: No joint swelling, deformity, or tenderness. Peripheral Pulses: Capillary refill <2secs, strong peripheral pulses. Neurologic: Gait normal. Sensation and strength grossly intact. IMPRESSION: Ms. Arcos continues to do well after her previous embolectomies. Her coumadin levels are being monitored closely for her hypercoagulable state, and she is compliant with all of her prescribed medication. We will continue to follow her annually with ABIs, as previously discussed with Dr. Gonzalez, if she wishes. She was encouraged to call with questions or if her symptoms return or worsen. PLAN: Follow up with ABIs in 1 year; Call with any questions, problems, or concerns. The patient is currently taking a statin: Yes The patient is currently taking aspirin: No. Reason: Coumadin I spent 15 minutes in the visit, with more than 50% of the total [id number] time of the visit in counseling/coordinat ion of care. Mo Wilson, SANTHOSH Normal [facility] Vital Signs Date Time Vital Sign Value Performing Clinician Jazz marroquin 01-07-2024 15:10-0400 Diastolic Blood Pressure Non-Invasive 93 mm[Hg] REID CORTEZ DO [facility] 01-07-2024 15:10-0400 Heart rate 73 /min REID CORTEZ DO [facility] 01-07-2024 15:10-0400 Respiratory rate 16 /min REID CORTEZ DO [facility] 01-07-2024 15:10-0400 Systolic Blood Pressure Non-Invasive 193 mm[Hg] REID CORTEZ DO [facility] 01-07-2024 13:28-0400 Body temperature 98.96 [degF] REID CORTEZ DO [facility] 01-07-2024 13:28-0400 Body weight 96.4 kg REID CORTEZ DO [facility] 01-07-2024 13:28-0400 Diastolic Blood Pressure Non-Invasive 89 mm[Hg] REID CORTEZ DO [facility] 01-07-2024 13:28-0400 Heart rate 66 /min REID CORTEZ DO [facility] 01-07-2024 13:28-0400 Respiratory rate 16 /min REID CORTEZ DO [facility] 01-07-2024 13:28-0400 Systolic Blood Pressure Non-Invasive 148 mm[Hg] REID CORTEZ DO [facility] 04-10-2023 12:41-0500 Diastolic Blood Pressure Non-Invasive 88 mm[Hg] STACEY JACKSON MD [facility] 04-10-2023 12:41-0500 Heart rate 61 /min STACEY JACKSON MD [facility] 04-10-2023 12:41-0500 Reason For Taking VItal Signs STACEY JACKSON MD [facility] 04-10-2023 12:41-0500 Respiratory rate 20 /min STACEY JACKSON MD [facility] 04-10-2023 12:41-0500 Systolic Blood Pressure Non-Invasive 158 mm[Hg] STACEY JACKSON MD [facility] 04-10-2023 11:26-0500 Body temperature 97.88 [degF] STACEY JACKSON MD [facility] 04-10-2023 11:26-0500 Body weight 97.7 kg STACEY JACKSON MD [facility] 04-10-2023 11:26-0500 Diastolic Blood Pressure Non-Invasive 102 mm[Hg] STACEY JACKSON MD [facility] 04-10-2023 11:26-0500 Heart rate 64 /min STACEY JACKSON MD [facility] 04-10-2023 11:26-0500 Respiratory rate 22 /min STACEY JACKSON MD [facility] 04-10-2023 11:26-0500 Systolic Blood Pressure Non-Invasive 168 mm[Hg] STACEY JACKSON MD [facility] 12-06-2022 23:28-0400 Diastolic Blood Pressure Non-Invasive 81 1 DARELL REICHFIELD DO [facility] 12-06-2022 23:28-0400 Heart rate 60 /min DARELL REICHFIELD DO [facility] 12-06-2022 23:28-0400 Respiratory rate 16 /min DARELL REICHFIELD DO [facility] 12-06-2022 23:28-0400 Systolic Blood Pressure Non-Invasive 172 1 DARELL REICHFIELD DO [facility] 12-06-2022 22:01-0400 Blood Pressure Cuff Size DARELL REICHFIELD DO [facility] 12-06-2022 22:01-0400 Blood Pressure Location DARELL REICHFIELD DO [facility] 12-06-2022 22:01-0400 Body height 144.8 cm DARELL REICHFIELD DO [facility] 12-06-2022 22:01-0400 Body temperature 98.24 [degF] DARELL REICHFIELD DO [facility] 12-06-2022 22:01-0400 Body weight 93.3 kg DARELL REICHFIELD DO [facility] 12-06-2022 22:01-0400 Diastolic Blood Pressure Non-Invasive 94 1 DARELL REICHFIELD DO [facility] 12-06-2022 22:01-0400 Heart rate 57 /min DARELL REICHFIELD DO [facility] 12-06-2022 22:01-0400 Respiratory rate 18 /min DARELL REICHFIELD DO [facility] 12-06-2022 22:01-0400 Systolic Blood Pressure Non-Invasive 180 1 DARELL REICHFIELD DO [facility] 09-07-2022 12:37-0400 Body temperature 98.42 [degF] STACEY JACKSON MD [facility] 09-07-2022 12:37-0400 Body weight 98.2 kg STACEY JACKSON MD [facility] 09-07-2022 12:37-0400 Diastolic Blood Pressure Non-Invasive 99 1 STACEY JACKSON MD [facility] 09-07-2022 12:37-0400 Heart rate 71 /min STACEY JACKSON MD [facility] 09-07-2022 12:37-0400 Respiratory rate 18 /min STACEY JACKSON MD [facility] 09-07-2022 12:37-0400 Systolic Blood Pressure Non-Invasive 157 1 [facility] [facility] 05-11-2021 18:20-0500 Body temperature 98.42 [degF] CHICO HUYNH MD [facility] 05-11-2021 18:20-0500 Diastolic blood pressure 78 mm[Hg] CHICO HUYNH MD [facility] 05-11-2021 18:20-0500 Heart rate 81 /min CHICO HUYNH MD [facility] 05-11-2021 18:20-0500 Respiratory rate 16 /min CHICO HUYNH MD [facility] 05-11-2021 18:20-0500 Systolic blood pressure 150 mm[Hg] CHICO HUYNH MD [facility] Encounters Encounter Date Encounter Type Care Provider Facility Start: 01-07-2024 End: 01-07-2024 Emergency department patient [facility] Facility:B Start: 08-13-2023 End: 08-13-2023 ambulatory MEHRAN KNIGHT DO Facility:B Start: 04-10-2023 End: 04-10-2023 Emergency department patient visit STACEY JACKSON MD [facility] Start: 12-06-2022 End: 12-06-2022 Emergency department patient visit DARELL ORTIZ DO [facility] Start: 09-07-2022 End: 09-07-2022 Emergency department patient visit STCAEY JACKSON MD [facility] Start: 12-18-2021 End: 12-18-2021 Patient encounter procedure MEHRAN KNIGHT DO [facility] Start: 08-09-2021 End: 08-09-2021 Patient encounter procedure MEHRAN KNIGHT DO [facility] Start: 05-26-2021 End: 05-26-2021 Emergency department patient visit STACEY JACKSON MD [facility] Start: 05-11-2021 End: 05-11-2021 Emergency department patient visit CHICO HUYNH MD [facility] Start: 07-08-2020 End: 07-08-2020 Patient encounter procedure Thi Gonzalez Work Phone: [facility] Comment on above: Arterial thromboembo lism (HCC) (Primary Dx) Start: 07-08-2020 End: 07-08-2020 Telemedicine consultation with patient Thi Gonzalez Work Phone: [facility] Start: 06-17-2020 End: 06-17-2020 Patient encounter procedure Mo ([employer]) Toni Work Phone: [facility] Start: 06-17-2020 Results Only Mo ([employer]t [employer]) Toni Work Phone: [facility] Procedures Date Procedure Procedure Detail Performing Clinician Start: 06-17-2020 N-invas physiologic std lxtr art compl bi Mo ([employer]) Toni Work Phone: Ligation of fallopian tube J MARY HUYNH MD Thrombectomy of artery CHICO HUYNH MD Tonsillectomy CHICO HUYNH MD Plan of Treatment Date Care Activity Detail Author Start: 07-08-2021 End: 08-07-2021 Non-invasive physiologic study extremity 3 levls US ARTERIAL PVR LOWER Radiology Routine Arterial thromboembolism (HCC) Expected: 07/08/2021 (Approximate), Expires: 08/07/2021 [facility] Comment on above: Expected: 07/08/2021 (Approximate), Expires: 08/07/2021 Start: 01-05-2020 Influenza vaccination INFLUENZA (#1) [facility] Start: 2018 DIABETES SCREEN DIABETES SCREEN [facility] Start: 2018 LIPID SCREEN LIPID SCREEN [facility] Start: 2013 Mammography MAMMOGRAM [facility] Start: 08-26-2003 HPV TESTING HPV TESTING [facility] Start: 1994 PAP TESTING PAP TESTING [facility] Start: 1992 Urine microalbumin profile DTAP,TDAP,TD (1 - Tdap) [facility] Start: 08-26-1991 HEPATITIS C SCREENING HEPATITIS C SC DIAMOND [facility] Start: 08-26-1991 HIV SCREENING HIV SCREENING [facility] Start: 1985 Adult depression screening assessment DEPRESSION SCREENING [facility] Immunizations Immunization Date Immunization Notes Care Provider Fa zena 08-01-2023 tetanus toxoid, redu hai diphtheria toxoid, and acellular pertussis vaccine, adsorbed; Translations: [Boostrix (Tdap)] REID CORTEZ DO [facility] 08-16-2021 SARS-CoV-2 (COVID-19 ) mRNA-1273 vaccine REID CORTEZ DO [facility] Comment on above: Result Comment: 2023: TPV4 08-19-2020 SARS-CoV-2 mRNA (tozinameran) vaccine REID CORTEZ DO [facility] Comment on above: Result Comment: 2023: TPV40 07-29-2020 SARS-CoV-2 mRNA (tozinameran) vaccine REID CORTEZ DO [facility] Comment on above: Result Comment: 2023: TPV40 Payers Date Payer Category Payer Private Health Insurance [id number] 2017 Medicaid UHC MEDICAID [employer] MEDICAID [id number] 2017-Present Medicaid [id number] 1973 Unknown [id number] 1973 Unknown [id number] 1973 Unknown [id number] 1973 Unknown 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) [facility] Start: 1975 Sex Assigned At [facility] Exposure to SARS-CoV -2 (event) Not sure [facility] Sex Assigned At Female [facility] Functional Status Date Assessment Result Facility 01-07-2024 Functional Status Independent [facility] 01-07-2024 Functional Status Ambulation in [facility] 04-10-2023 Functional Status Standard Safet y ID band on, Call device within reach, Bed in low position, Wheels locked, Bedside Cart Locked, Safety level maintained [facility] 04-10-2023 Functional Status [facility] 12-06-2022 Functional Status Independent [facility] 09-07-2022 Functional Status ID band on, Call device within reach, Bed in low position, Wheels locked, personal items within reach [facility] Mental Status Date Assessment Result [facility] 01-07-2024 Mental Status Orientation Oriented x 4 [facility] 04-10-2023 Mental Status Oriented x 4 [facility] 04-10-2023 Mental Status [facility] 12-06-2022 Mental Status Orientation Oriented x 4 [facility] 09-07-2022 Mental Status Orientation Oriented x 4 [facility] 09-07-2022 Mental Status [facility] Clinical Notes 05-11-2021 to 01-07-2024 LaboratoryRadiologyLaboratoryLaboratoryRadiologyRadiologyRadiologyRadiology Note Date & Type Note Facility 01-07-2024 Hospital Discharge instructions Patient Education 01/07/2024 15:29:21 Near Syncope, Unknown Near-Fainting with Uncertain Cause Fainting (syncope) is a temporary loss of consciousness (passing out). This happens when blood flow to the brain is reduced. Near-fainting (near-syncope) is like fainting, but you do not fully pass out. Instead, you feel like you are going to pass out, but do not actually lose consciousness. Signs and symptoms The following are symptoms of near-fainting: Feeling lightheaded or like you are going to faint Weak pulse Nausea Sweating Blurred vision or feeling like your vision is fading Palpitations Chest pain Hard time breathing Feeling cool and clammy Causes This happens when your blood pressure suddenly drops, and not enough blood flows to your brain. Common minor causes include: Sudden emotional stress such as fear, pain, panic, or the sight of blood Straining or overexertion, such as straining while using the toilet, coughing, or sneezing Standing up too quickly, or standing up for too long a time More serious causes include: Very slow, fast, or irregular heart rate (arrhythmia) Dehydration Significant blood loss Medicines, or a recent change in medicines. Medicines that can cause fainting include blood pressure or heart medicines. Heart attack Heart valve problems Remember, even minor causes can become serious if you fall and injure yourself, or are driving. You may need more tests. It is very important that you follow up with your doctor as advised. Home care The following guidelines will help you care for yourself at home: Rest today. Resume your normal activities as soon as you are feeling back to normal. If you become lightheaded or dizzy, lie down right away or sit with your head between your knees. Drink plenty of fluids and don't skip meals. Because the exact cause of your near fainting spell is not known, another spell could occur without warning. To stay safe, do not drive a car or use dangerous equipment. Do not take a bath alone. Use a shower instead. Do not swim alone. You can resume these activities when your healthcare provider says that you are no longer in danger of having a near-fainting spell. Follow-up care Follow up with your healthcare provider, or as advised. Call 911 Call 911 if any of the following occur: Another near-fainting or full fainting spell occurs, and it is not explained by the common causes listed above Chest, arm, neck, jaw, back or abdominal pain Shortness of breath Weakness, tingling, or numbness in one side of the face, or in one arm or leg Slurred speech, confusion, trouble walking or seeing Seizure When to seek medical advice Call your healthcare provider right away if any of these occur: Changes in your medicines Occasional mild lightheadedness, especially when standing up too quickly or straining [id number] [employer]. [address] [place] [address], [place] [address]. All rights reserved. This information is not intended as a substitute for professional medical care. Always follow your healthcare professional's instructions. Follow Up Care 01/07/2024 13:29:16 With:MEHRAN KNIGHT DO Address: [address] [place] [phone] When:2-4 days [facility] 01-07-2024 Note Discharge Instructions Thank you for allowing [facility] to assist you with your healthcare needs. The following is important discharge information regarding your hospital visit. What to Do Next Instructions from Your Care Team No qualifying data available. Post Acute Orders No qualifying data available. You Need to Schedule the Following Appointments Follow Up with MEHRAN KNIGHT DO When:Within 2-4 days Where:[address] [place] [phone] Allergies NKA Medications Please ask your primary doctor or pharmacist before taking any other medication not listed, including over the counter drugs, herbal medications, vitamins and or supplements as they may interact with your home medications. What How Much When Why Instructions Last Dose New cephalexin (cephalexin 500 mg oral capsule) 1 cap by mouth Every 12 hours Duration: 7 Days Printed Prescription 01/06 @ 3:30p Unchanged atorvastatin (atorvastatin 20 mg oral tablet) 1 tab(s) by mouth Once a day Hypercholesterolemia Duration: 100 Days Unchanged cyanocobalamin (cyanocobalamin 1000 mcg oral tablet) 1 tab(s) by mouth Every day Vitamin B12 deficiency Duration: 100 Days Unchanged dilTIAZem (Taztia XT 360 mg/ 24 hours oral capsule, extended release) 1 cap by mouth Once a day Unchanged FLUoxetine (FLUoxetine 10 mg oral tablet) 1 tab(s) by mouth Once a day Menopausal hot flushes Unchanged hydroCHLOROthiazide (hydroCHLOROthiazide 25 mg oral tablet) 1 tab(s) by mouth Once a day as needed for Blood pressure control Unchanged meclizine (meclizine 12.5 mg oral tablet) 1 tab(s) by mouth Three (3) times a day as needed for as needed for dizziness Vertigo Unchanged metoprolol (metoprolol succinate 25 mg oral TABLET extended release) 1 tab(s) by mouth Once a day Do not crush or chew (controlled release) Unchanged warfarin (warfarin 6 mg oral tablet) See instructions History of arterial thrombosis Take 2.5 tabs on Saturday and and 2 tabs PO on the other days of the week. Please take this list to your next doctor s visit. Bring all medications you take, including over the counter medications, herbals and other supplements with you to your doctor s visit. Patients and families are reminded to discard old lists and to update any records with all medication providers or retail pharmacies. Medication Leaflets cephalexin (sef a MURPHY in) What is the most important information I should know about cephalexin? You should not use this medicine if you are allergic to cephalexin or to similar antibiotics, such as Ceftin, Cefzil, Omnicef, and others. Tell your doctor if you are allergic to any drugs, especially penicillins or other antibiotics. What is cephalexin? Cephalexin is a cephalosporin (SEF a low spor in) antibiotic that is used to treat bacterial infections of the lungs, ear, skin, bones, bladder, and kidneys. Cephalexin is used to treat infections in adults and children who are at least 1 year old. Cephalexin may also be used for purposes not listed in this medication guide. What should I discuss with my healthcare provider before taking cephalexin? You should not use this medicine if you are allergic to cephalexin or any other cephalosporin antibiotic (cefdinir, cefadroxil, cefoxitin, cefprozil, ceftriaxone, cefuroxime, Omnicef, and others). Tell your doctor if you have ever had: an allergy to any drug (especially penicillin); liver or kidney disease; or intestinal problems, such as colitis. The liquid form of cephalexin may contain sugar. This may affect you if you have diabetes. Tell your doctor if you are or breast-feeding. How should I take cephalexin? Follow all directions on your prescription label and read all medication guides or instruction sheets. Use the medicine exactly as directed. Do not use cephalexin to treat any condition that has not been checked by your doctor. Measure liquid medicine carefully. Use the dosing syringe provided, or use a medicine dose-measuring device (not a kitchen spoon). Use this medicine for the full prescribed length of time, even if your symptoms quickly improve. Skipping doses can increase your risk of infection that is resistant to medication. Cephalexin will not treat a viral infection such as the flu or a common cold. Do not share cephalexin with another person, even if they have the same symptoms you have. This medicine can affect the results of certain medical tests. Tell any doctor who treats you that you are using cephalexin. Store the tablets and capsules at room temperature away from moisture, heat, and light. Store the liquid medicine in the refrigerator. Throw away any unused liquid after 14 days. What happens if I miss a dose? Take the medicine as soon as you can, but skip the missed dose if it is almost time for your next dose. Do not take two doses at one time. What happens if I overdose? Seek emergency medical attention or call the Poison Help line at . Overdose symptoms may include nausea, vomiting, stomach pain, diarrhea, and blood in your urine. What should I avoid while taking cephalexin? Antibiotic medicines can cause diarrhea, which may be a sign of a new infection. If you have diarrhea that is watery or bloody, call your doctor before using anti-diarrhea medicine. What are the possible side effects of cephalexin? Get emergency medical help if you have signs of an allergic reaction (hives, difficult breathing, swelling in your face or throat) or a severe skin reaction (fever, sore throat, burning eyes, skin pain, red or purple skin rash with blistering and peeling). Call your doctor at once if you have: severe stomach pain, diarrhea that is watery or bloody (even if it occurs months after your last dose); unusual tiredness, feeling light-headed or short of breath; easy bruising, unusual bleeding, purple or red spots under your skin; a seizure; pale skin, cold hands and feet; yellowed skin, dark colored urine; fever, weakness; or pain in your side or lower back, painful urination. Common side effects may include: diarrhea; nausea, vomiting; indigestion, stomach pain; or vaginal itching or discharge. This is not a complete list of side effects and others may occur. Call your doctor for medical advice about side effects. You may report side effects to FDA at 0-361-EGC-0263. What other drugs will affect cephalexin? Tell your doctor about all your other medicines, especially: metformin; or probenecid. This list is not complete. Other drugs may affect cephalexin, including prescription and etlo-gut-odbyoxe medicines, vitamins, and herbal products. Not all possible drug interactions are listed here. Where can I get more information? Your pharmacist can provide more information about cephalexin. Remember, keep this and all other medicines out of the reach of children, never share your medicines with others, and use this medication only for the indication prescribed. Every effort has been made to ensure that the information provided by [employer]. ('[employer]') is accurate, up-to-date, and complete, but no guarantee is made to that effect. Drug information contained herein may be time sensitive. [facility] information has been compiled for use by healthcare practitioners and consumers in the [place] and therefore [facility] does not warrant that uses outside of the [place] are appropriate, unless specifically indicated otherwise. [employer] drug information does not endorse drugs, diagnose patients or recommend therapy. [employer] drug information is an informational resource designed to assist licensed healthcare practitioners in caring for their patients and/or to serve consumers viewing this service as a supplement to, and not a substitute for, the expertise, skill, knowledge and judgment of healthcare practitioners. The absence of a warning for a given drug or drug combination in no way should be construed to indicate that the drug or drug combination is safe, effective or appropriate for any given patient. [facility] does not assume any responsibility for any aspect of healthcare administered with the aid of information [facility] provides. The information contained herein is not intended to cover all possible uses, directions, precautions, warnings, drug interactions, allergic reactions, or adverse effects. If you have questions about the drugs you are taking, check with your doctor, nurse or pharmacist. Copyright 7844-8913 [employer]. Version: 04.05. Revision Date: 12/05/2022. Education Materials Near-Fainting with Uncertain Cause Fainting (syncope) is a temporary loss of consciousness (passing out). This happens when blood flow to the brain is reduced. Near-fainting (near-syncope) is like fainting, but you do not fully pass out. Instead, you feel like you are going to pass out, but do not actually lose consciousness. Signs and symptoms The following are symptoms of near-fainting: Feeling lightheaded or like you are going to faint Weak pulse Nausea Sweating Blurred vision or feeling like your vision is fading Palpitations Chest pain Hard time breathing Feeling cool and clammy Causes This happens when your blood pressure suddenly drops, and not enough blood flows to your brain. Common minor causes include: Sudden emotional stress such as fear, pain, panic, or the sight of blood Straining or overexertion, such as straining while using the toilet, coughing, or sneezing Standing up too quickly, or standing up for too long a time More serious causes include: Very slow, fast, or irregular heart rate (arrhythmia) Dehydration Significant blood loss Medicines, or a recent change in medicines. Medicines that can cause fainting include blood pressure or heart medicines. Heart attack Heart valve problems Remember, even minor causes can become serious if you fall and injure yourself, or are driving. You may need more tests. It is very important that you follow up with your doctor as advised. Home care The following guidelines will help you care for yourself at home: Rest today. Resume your normal activities as soon as you are feeling back to normal. If you become lightheaded or dizzy, lie down right away or sit with your head between your knees. Drink plenty of fluids and don't skip meals. Because the exact cause of your near fainting spell is not known, another spell could occur without warning. To stay safe, do not drive a car or use dangerous equipment. Do not take a bath alone. Use a shower instead. Do not swim alone. You can resume these activities when your healthcare provider says that you are no longer in danger of having a near-fainting spell. Follow-up care Follow up with your healthcare provider, or as advised. Call 911 Call 911 if any of the following occur: Another near-fainting or full fainting spell occurs, and it is not explained by the common causes listed above Chest, arm, neck, jaw, back or abdominal pain Shortness of breath Weakness, tingling, or numbness in one side of the face, or in one arm or leg Slurred speech, confusion, trouble walking or seeing Seizure When to seek medical advice Call your healthcare provider right away if any of these occur: Changes in your medicines Occasional mild lightheadedness, especially when standing up too quickly or straining [phone] [employer]. [address] [place] [address], [place] [address]. All rights reserved. This information is not intended as a substitute for professional medical care. Always follow your healthcare professional's instructions. Additional Information VACCINATE! IT SAVES LIVES! Members of the community who have not yet received the COVID-19 vaccine and would like to receive it can visit one of [facility] vaccine clinics. There are many vaccine clinic locations within the [facility]. For locations and available times, please visit www.gettheot.coronavirus.[place].go [email or web address] It is important to note that some COVID mobile vaccine clinics are held outdoors and may be canceled in rainy or stormy conditions. To learn more about pediatric vaccinations (ages 5-11), we invite you to visit the [employer] webpage. https://www.Call [employer].org/pag es/5756-Jtjfk-Lqbgioctcuq-Frequent he-Ehynz-Zztknwpxg.html To learn more about the COVID-19 vaccine, we invite you to visit the CDC website for a list of frequently asked questions. https://www.cdc.gov/coronavirus/20 19-ncov/vaccines/faq.html [facility] Patient Portal Access Instructions: Stay connected with your healthcare team and access your personal medical information anytime with the [employer] Patient Portal. If you would like a full copy of your medical records please contact the [facility] Medical Records Department Saturday through Saturday between 8a.m. and 4:30p.m. Please follow the directions below to access the portal: 1.Access the email account you provided upon registration to the [facility].2.Look for an invitation email from [facility].3.Open the email and access the invitation link: Accept Invitation to [employer]4.Fill in the required johns to create your account. Sign into www.[employer] with your username and password that you created in the above steps to stay up to date. You can then view a summary of results, a summary of your visits, and the ability to download your summaries to your computer or send the information securely to a physician. Remember that your healthcare information is confidential, so carefully consider who you will allow to register on the [employer] Patient Portal for access to your information. You can also access the [employer] Patient Portal on the [employer]. Simply click on Health Records under Health Data and then click on the [employer] logo. HOW TO SAFELY DISPOSE OF PRESCRIPTION MEDICATIONS Please use one of the following methods to safely dispose of your unused medications. 1.Use a drug disposal kit: the drug disposal pouch allows you to safely discard your old and unused drugs. Ask your nurse to give you one when you are discharged.2.Visit a local take-back location: Many local pharmacies and police departments have programs that collect old and unwanted prescription drugs. Call your local pharmacy or go to http://ClearStar.ON-S Segurança Online/7C4Nr4y to find one close to you.3.Make use of household items: Use cat litter or old coffee grounds to dispose medications if other options are not available. Mix your drugs with these household products, seal them in an airtight container and throw it into the garbage. Call [facility]: [phone] to be sure your drugs can be disposed of in this way. Some medicines may require a different approach.4.Never flush your medications down the toilet. IF YOU HAVE BEEN PRESCRIBED AN OPIOIDS FOR PAIN If you have been prescribed an opioid (such as hydrocodone, oxycodone or morphine), it is critical to understand the possible side effects and risks of opioid pain medications. Even when taken as directed, opioids can have several side effects including: Tolerance, meaning you might need to take more of a medication for the same pain relief. Nausea, vomiting and/or constipation. Sleepiness, dizziness, dry mouth, confusion, depression or itching. Physical dependence, meaning you have withdrawal symptoms when a medication is stopped ? this can develop within a few days. KNOW YOUR RESPONSIBILITIES It is important to know exactly how much and how often to take the opioid pain medications you are prescribed. Never take opioids in higher amounts or more often than prescribed. Do not combine opioids with alcohol or other drugs that cause drowsiness, such as benzodiazepines, also known as benzos, including diazepam and alprazolam, muscle relaxants or sleep aids. Never sell or share prescription opioids. This is illegal. Store opioids in a secure place and out of reach of others (including children, family, friends and visitors). The last page(s) of this document has been signed and retained as a CHART COPY Signatures Patient Education Materials Near Syncope, Unknown Medication Leaflets cephalexin My discharge plan and instructions have been reviewed and explained to me and I,JOSSELYN LES understand my current condition and have read and understand these discharge instructions. I have received a written copy of the plan/instructions. If I have questions, I am aware that I should contact my doctor. Patient/Cv Rn Signature: Date/Time: Relationship to Patient: ___ Witness Name/Signature: Date/Time: [facility] 01-07-2024 Note ORIGINAL EXAMINATION: ONE XRAY VIEW OF THE CHEST 01/07/2024 2:44 pm COMPARISON: Chest x-ray 07/2022, CTA chest 05/25/2022. HISTORY: ORDERING SYSTEM PROVIDED HISTORY: Reason for Exam: chest pain FINDINGS: Cardiomediastinal silhouette is within normal limits. No focal consolidation, pleural effusion or pneumothorax. The osseous structures appear intact. IMPRESSION: No acute cardiopulmonary process. Interpreted by: Alex Cade Preliminary Report By: Alex Cade Electronically signed By Alex Cade Dictated Date: 01/07/2024 2:48:23 PM Prelim Date: 01/07/2024 2:49:22 PM Sign Date: 01/07/2024 2:49:22 PM Ordering Provider: REID CORTEZ [facility] 01-07-2024 Note Sinus rhythm Left ventricular hypertrophy Anterior Q waves, possibly due to LVH Compared to ECG at 04/10/2023 11:33:01 BORDERLINE ECG Electronic Signature: REID CORTEZ DO 01/07/2024 14:32:41 [facility] 08-01-2023 Evaluation + Plan note Future Scheduled TestsBasic Metabolic Panel 08/01/23Vitamin B12 Level 08/01/23Complete Blood Count 08/01/23Lipid Profile 08/01/23Albumin/Creatinine Ratio, Random U[facility]01[facility]23 [facility] Discharge instructions Patient Education 04/10/2023 12:33:05 High Blood Pressure, Established, Out of Control Uncontrolled High Blood Pressure (Established) Your blood pressure was unusually high today. This can occur if you ve missed doses of your blood pressure medicine. Or it can happen if you are taking other medicines. These include some asthma inhalers, decongestants, diet pills, and street drugs like cocaine and amphetamine. Other causes include: Weight gain More salt in your diet Smoking Caffeine Your blood pressure can also rise if you are emotionally upset or in intense pain. It may go back to normal after a period of rest. Blood pressure measurements are given as 2 numbers. Systolic blood pressure is the upper number. This is the pressure when the heart contracts. Diastolic blood pressure is the lower number. This is the pressure when the heart relaxes between beats. You will see your blood pressure readings written together. For example, a person with a systolic pressure of 118 and a diastolic pressure of 78 will have 118/78 written in the medical record. To be high blood pressure, the numbers must be higher when tested over a period of time. Blood pressure is categorized as normal, elevated, or stage 1 or stage 2 high blood pressure: Normal blood pressure is systolic of less than 120 and diastolic of less than 80 (120/80) Elevated blood pressure is systolic of 120 to 129 and diastolic less than 80 Stage 1 high blood pressure is systolic is 130 to 139 or diastolic between 80 to 89 Stage 2 high blood pressure is when systolic is 140 or higher or the diastolic is 90 or higher Uncontrolled high blood pressure can cause serious health problems. It raises your risk for heart attack, stroke, and heart failure. In general, if you have high blood pressure, keeping your blood pressure below 130/80 mmHg may help prevent these problems. Your healthcare provider may prescribe medicine to help control blood pressure if lifestyle changes are not enough. Home care It s important to take steps to lower your blood pressure. If you are taking blood pressure medicine, the guidelines below may help you need less or no medicines in the future. Start a weight-loss program if you are overweight. Cut back on the amount of salt in your diet: oAvoid high-salt foods like olives, pickles, smoked meats, and salted potato chips. oDon t add salt to your food at the table. oUse only small amounts of salt when cooking. Start an exercise program. Talk with your healthcare provider about what exercise program is best for you. It doesn t have to be difficult. Even brisk walking for 20 minutes 3 times a week is a good form of exercise. Avoid medicines that stimulates the heart. This includes many nfyj-nat-ackngjp cold and sinus decongestant pills and sprays, as well as diet pills. Check the warnings about high blood pressure on the label. Before purchasing any apxz-bhh-qgmtvxb medicines or supplements, always ask the pharmacist about the product's potential interaction with your high blood pressure and your medicines. Stimulants such as amphetamine or cocaine could be lethal for someone with high blood pressure. Never take these. Limit how much caffeine you drink. Or switch to noncaffeinated beverages. Stop smoking. If you are a long-time smoker, this can be hard. Enroll in a stop-smoking program to make it more likely that you will succeed. Talk with your provider about ways to quit. Learn how to handle stress better. This is an important part of any program to lower blood pressure. Learn ways to relax. These include meditation, yoga, and biofeedback. If medicines were prescribed, take them exactly as directed. Missing doses may cause your blood pressure to get out of control. If you miss a dose or doses of your medicines, check with your healthcare provider or pharmacist about what to do. Consider buying an automatic blood pressure machine. Your provider may recommend a certain type. You can get one of these at most pharmacies. Measure your blood pressure twice a day, in the morning, and in the late afternoon. Keep a written record of your home blood pressure readings and take the record to your medical appointments. Here are some additional guidelines on home blood pressure monitoring from the [place] [employer]. Don't smoke or drink coffee for 30 minutes Go to the bathroom before the test. Relax for 5 minutes before taking the measurement. Sit correctly. Be sure your back is supported. Don't sit on a couch or soft chair. Uncross your feet and place them flat on the floor. Place your arm on a solid, flat surface like a table with the upper arm at heart level. Make certain the middle of the cuff is directly above the bend of the elbow. Check the monitor's instruction manual for an illustration. Take multiple readings. When you measure, take 2 or 3 readings one minute apart and record all of the results. Take your blood pressure at the same time every day, or as your healthcare provider recommends. Record the date, time, and blood pressure reading. Take the record with you to your next appointment. If your blood pressure monitor has a built-in memory, simply take the monitor with you to your next appointment. Call your provider if you have several high readings. Don't be frightened by a single high reading, but if you get several high readings, check in with your healthcare provider. Note: When blood pressure reaches a systolic (top number) of 180 or higher or a diastolic (bottom number) of 110 or higher, emergency medical treatment is required. Call your healthcare provider immediately. Follow-up care Regular visits to your own healthcare provider for blood pressure and medicine checks are an important part of your care. Make a follow-up appointment as directed. Bring the record of your home blood pressure readings to the appointment. When to seek medical advice Call your healthcare provider right away if any of these occur: Blood pressure reaches a systolic (top number) of 180 or higher or diastolic (bottom number) of 110 or higher, emergency medical treatment is required. Chest, arm, shoulder, neck, or upper back pain Shortness of breath Severe headache Throbbing or rushing sound in the ears Nosebleed Extreme drowsiness, confusion, or fainting Dizziness or dizziness with spinning sensation (vertigo) Weakness in an arm or leg or on one side of the face Trouble speaking or seeing [id number] [employer]. [address] [place] [address]. All rights reserved. This information is not intended as a substitute for professional medical care. Always follow your healthcare professional's instructions. Follow Up Care 04/10/2023 11:19:17 With:MEHRAN KNIGHT DO Address: [address] [place] [address] [place] [address] [phone] When:2-4 days [facility] 04-10-2023 Emergency department Discharge summary Discharge Instructions Thank you for allowing [facility] to assist you with your healthcare needs. The following is important discharge information regarding your hospital visit. Diagnosis from Today's Visit Elevated blood pressure High blood pressure What to Do Next Instructions from Your Care Team No qualifying data available. Post Acute Orders No qualifying data available. You Need to Schedule the Following Appointments Follow Up with MEHRAN KNIGHT DO When Within 2-4 days [facility] [address] [facility] [place] [phone] Allergies NKA Medications Please ask your primary doctor or pharmacist before taking any other medication not listed, including over the counter drugs, herbal medications, vitamins and or supplements as they may interact with your home medications. What How Much When Why Instructions Last Dose Unchanged atorvastatin (atorvastatin 20 mg oral tablet) 1 tab(s) by mouth Once a day Duration: 90 Days Unchanged cyanocobalamin (cyanocobalamin 1000 mcg oral tablet) 1 tab(s) by mouth Every day Vitamin B12 deficiency Unchanged dilTIAZem (Taztia XT 360 mg/ 24 hours oral capsule, extended release) 1 cap by mouth Once a day Unchanged hydroCHLOROthiazide (hydroCHLOROthiazide 25 mg oral tablet) 1 tab(s) by mouth Once a day as needed for Blood pressure control Unchanged meclizine (meclizine 12.5 mg oral tablet) 1 tab(s) by mouth Three (3) times a day as needed for as needed for dizziness Vertigo Unchanged metoprolol (metoprolol succinate 25 mg oral TABLET extended release) 1 tab(s) by mouth Once a day Do not crush or chew (controlled release) Unchanged warfarin (warfarin 6 mg oral tablet) See instructions History of arterial thrombosis Take 2.5 tabs on Saturday and and 2 tabs PO on the other days of the week. Please take this list to your next doctor s visit. Bring all medications you take, including over the counter medications, herbals and other supplements with you to your doctor s visit. Patients and families are reminded to discard old lists and to update any records with all medication providers or retail pharmacies. Education Materials Uncontrolled High Blood Pressure (Established) Your blood pressure was unusually high today. This can occur if you ve missed doses of your blood pressure medicine. Or it can happen if you are taking other medicines. These include some asthma inhalers, decongestants, diet pills, and street drugs like cocaine and amphetamine. Other causes include: Weight gain More salt in your diet Smoking Caffeine Your blood pressure can also rise if you are emotionally upset or in intense pain. It may go back to normal after a period of rest. Blood pressure measurements are given as 2 numbers. Systolic blood pressure is the upper number. This is the pressure when the heart contracts. Diastolic blood pressure is the lower number. This is the pressure when the heart relaxes between beats. You will see your blood pressure readings written together. For example, a person with a systolic pressure of 118 and a diastolic pressure of 78 will have 118/78 written in the medical record. To be high blood pressure, the numbers must be higher when tested over a period of time. Blood pressure is categorized as normal, elevated, or stage 1 or stage 2 high blood pressure: Normal blood pressure is systolic of less than 120 and diastolic of less than 80 (120/80) Elevated blood pressure is systolic of 120 to 129 and diastolic less than 80 Stage 1 high blood pressure is systolic is 130 to 139 or diastolic between 80 to 89 Stage 2 high blood pressure is when systolic is 140 or higher or the diastolic is 90 or higher Uncontrolled high blood pressure can cause serious health problems. It raises your risk for heart attack, stroke, and heart failure. In general, if you have high blood pressure, keeping your blood pressure below 130/80 mmHg may help prevent these problems. Your healthcare provider may prescribe medicine to help control blood pressure if lifestyle changes are not enough. Home care It s important to take steps to lower your blood pressure. If you are taking blood pressure medicine, the guidelines below may help you need less or no medicines in the future. Start a weight-loss program if you are overweight. Cut back on the amount of salt in your diet: oAvoid high-salt foods like olives, pickles, smoked meats, and salted potato chips. oDon t add salt to your food at the table. oUse only small amounts of salt when cooking. Start an exercise program. Talk with your healthcare provider about what exercise program is best for you. It doesn t have to be difficult. Even brisk walking for 20 minutes 3 times a week is a good form of exercise. Avoid medicines that stimulates the heart. This includes many qiih-pkc-oyyazwk cold and sinus decongestant pills and sprays, as well as diet pills. Check the warnings about high blood pressure on the label. Before purchasing any hdfw-xaa-wyvkbae medicines or supplements, always ask the pharmacist about the product's potential interaction with your high blood pressure and your medicines. Stimulants such as amphetamine or cocaine could be lethal for someone with high blood pressure. Never take these. Limit how much caffeine you drink. Or switch to noncaffeinated beverages. Stop smoking. If you are a long-time smoker, this can be hard. Enroll in a stop-smoking program to make it more likely that you will succeed. Talk with your provider about ways to quit. Learn how to handle stress better. This is an important part of any program to lower blood pressure. Learn ways to relax. These include meditation, yoga, and biofeedback. If medicines were prescribed, take them exactly as directed. Missing doses may cause your blood pressure to get out of control. If you miss a dose or doses of your medicines, check with your healthcare provider or pharmacist about what to do. Consider buying an automatic blood pressure machine. Your provider may recommend a certain type. You can get one of these at most pharmacies. Measure your blood pressure twice a day, in the morning, and in the late afternoon. Keep a written record of your home blood pressure readings and take the record to your medical appointments. Here are some additional guidelines on home blood pressure monitoring from the [place] [employer]. Don't smoke or drink coffee for 30 minutes Go to the bathroom before the test. Relax for 5 minutes before taking the measurement. Sit correctly. Be sure your back is supported. Don't sit on a couch or soft chair. Uncross your feet and place them flat on the floor. Place your arm on a solid, flat surface like a table with the upper arm at heart level. Make certain the middle of the cuff is directly above the bend of the elbow. Check the monitor's instruction manual for an illustration. Take multiple readings. When you measure, take 2 or 3 readings one minute apart and record all of the results. Take your blood pressure at the same time every day, or as your healthcare provider recommends. Record the date, time, and blood pressure reading. Take the record with you to your next appointment. If your blood pressure monitor has a built-in memory, simply take the monitor with you to your next appointment. Call your provider if you have several high readings. Don't be frightened by a single high reading, but if you get several high readings, check in with your healthcare provider. Note: When blood pressure reaches a systolic (top number) of 180 or higher or a diastolic (bottom number) of 110 or higher, emergency medical treatment is required. Call your healthcare provider immediately. Follow-up care Regular visits to your own healthcare provider for blood pressure and medicine checks are an important part of your care. Make a follow-up appointment as directed. Bring the record of your home blood pressure readings to the appointment. When to seek medical advice Call your healthcare provider right away if any of these occur: Blood pressure reaches a systolic (top number) of 180 or higher or diastolic (bottom number) of 110 or higher, emergency medical treatment is required. Chest, arm, shoulder, neck, or upper back pain Shortness of breath Severe headache Throbbing or rushing sound in the ears Nosebleed Extreme drowsiness, confusion, or fainting Dizziness or dizziness with spinning sensation (vertigo) Weakness in an arm or leg or on one side of the face Trouble speaking or seeing [phone] [employer]. [address] [place] [address]. All rights reserved. This information is not intended as a substitute for professional medical care. Always follow your healthcare professional's instructions. Additional Information VACCINATE! IT SAVES LIVES! Members of the community who have not yet received the COVID-19 vaccine and would like to receive it can visit one of [facility] vaccine clinics. There are many vaccine clinic locations within the [facility]. For locations and available times, please visit [email or web address].[place].go [email or web address] It is important to note that some COVID mobile vaccine clinics are held outdoors and may be canceled in rainy or stormy conditions. To learn more about pediatric vaccinations (ages 5-11), we invite you to visit the [facility] webpage. https://www.[email or web address].org/pag es/9498-Hkapt-Jlkzjsxhpju-Frequent gh-Wyrhx-Fsmndebyz.html To learn more about the COVID-19 vaccine, we invite you to visit the CDC website for a list of frequently asked questions. https://www.cdc.gov/coronavirus/-ncov/vaccines/faq.html [facility] Patient Portal Access Instructions: Stay connected with your healthcare team and access your personal medical information anytime with the [facility] Patient Portal. If you would like a full copy of your medical records please contact the [facility] Medical Records Department Saturday through Saturday between 8a.m. and 4:30p.m. Please follow the directions below to access the portal: 1.Access the email account you provided upon registration to the [facility].2.Look for an invitation email from [facility].3.Open the email and access the invitation link: Accept Invitation to [facility] [employer]4.Fill in the required johns to create your account. Sign into www.[employer] with your username and password that you created in the above steps to stay up to date. You can then view a summary of results, a summary of your visits, and the ability to download your summaries to your computer or send the information securely to a physician. Remember that your healthcare information is confidential, so carefully consider who you will allow to register on the [facility] Patient Portal for access to your information. You can also access the [employer] Patient Portal on the [employer]. Simply click on Health Records under Health Data and then click on the [employer] logo. HOW TO SAFELY DISPOSE OF PRESCRIPTION MEDICATIONS Please use one of the following methods to safely dispose of your unused medications. 1.Use a drug disposal kit: the drug disposal pouch allows you to safely discard your old and unused drugs. Ask your nurse to give you one when you are discharged.2.Visit a local take-back location: Many local pharmacies and police departments have programs that collect old and unwanted prescription drugs. Call your local pharmacy or go to http://ClearStar.[employer]/6P9Wp5g to find one close to you.3.Make use of household items: Use cat litter or old coffee grounds to dispose medications if other options are not available. Mix your drugs with these household products, seal them in an airtight container and throw it into the garbage. Call [facility]: [phone] to be sure your drugs can be disposed of in this way. Some medicines may require a different approach.4.Never flush your medications down the toilet. IF YOU HAVE BEEN PRESCRIBED AN OPIOIDS FOR PAIN If you have been prescribed an opioid (such as hydrocodone, oxycodone or morphine), it is critical to understand the possible side effects and risks of opioid pain medications. Even when taken as directed, opioids can have several side effects including: Tolerance, meaning you might need to take more of a medication for the same pain relief. Nausea, vomiting and/or constipation. Sleepiness, dizziness, dry mouth, confusion, depression or itching. Physical dependence, meaning you have withdrawal symptoms when a medication is stopped ? this can develop within a few days. KNOW YOUR RESPONSIBILITIES It is important to know exactly how much and how often to take the opioid pain medications you are prescribed. Never take opioids in higher amounts or more often than prescribed. Do not combine opioids with alcohol or other drugs that cause drowsiness, such as benzodiazepines, also known as benzos, including diazepam and alprazolam, muscle relaxants or sleep aids. Never sell or share prescription opioids. This is illegal. Store opioids in a secure place and out of reach of others (including children, family, friends and visitors). The last page(s) of this document has been signed and retained as a CHART COPY Signatures Patient Education Materials High Blood Pressure, Established, Out of Control Medication Leaflets My discharge plan and instructions have been reviewed and explained to me and I,LES ARCOS understand my current condition and have read and understand these discharge instructions. I have received a written copy of the plan/instructions. If I have questions, I am aware that I should contact my doctor. Patient/Cv Rn Signature: Date/Time: Relationship to Patient: ___ Witness Name/Signature: Date/Time: [facility] 04-10-2023 Note Sinus rhythm Left ventricular hypertrophy Electronic Signature: STACEY JACKSON MD 04/10/2023 11:37:23 [facility] [facility] 12-07-2022 Hospital Discharge instructions Patient Education 12/06/2022 22:07:58 Dizziness, Uncertain Cause Dizziness (Uncertain Cause) Dizziness is a common symptom. It may be described as lightheadedness, spinning, or feeling like you are going to faint. Dizziness can have many causes. Be sure to tell the healthcare provider about: All medicines you take, including prescription, [id number], herbs, and supplements Any other symptoms you have Any health problems you are being treated for Any past major health problems you've had, such as a heart attack, balance issues, hearing problems, or blood pressure problems Anything that causes the dizziness to get worse or better Today's exam did not show an exact cause for your dizziness. Other tests may be needed. Follow up with your healthcare provider. Home care Dizziness that occurs with sudden standing may be a sign of mild dehydration. Drink extra fluids for the next few days. If you recently started a new medicine, stopped a medicine, or had the dose of a current medicine changed, talk with the prescribing healthcare provider. Your medicine plan may need adjustment. If dizziness lasts more than a few seconds, sit or lie down until it passes. This may help prevent injury in case you pass out. Get up slowly when you feel better. Don't drive or use power tools or dangerous equipment until you have had no dizziness for at least 48 hours. Follow-up care Follow up with your healthcare provider for further evaluation within the next 7 days or as advised. When to seek medical advice Call your healthcare provider for any of the following: Worsening of symptoms or new symptoms Passing out or seizure Repeated vomiting Headache Palpitations (the sense that your heart is fluttering or beating fast or hard) Shortness of breath Blood in vomit or stool (black or red color) Weakness of an arm or leg or 1 side of the face Vision or hearing changes Trouble walking or speaking Chest, arm, neck, back, or jaw pain [id number] [employer]. [address] [place] [address], [place] [address]. All rights reserved. This information is not intended as a substitute for professional medical care. Always follow your healthcare professional's instructions. Follow Up Care 12/06/2022 21:55:32 With:MEHRAN KNIGHT DO Address: [address] [place] [address] [place] [address]- [phone] When:2-4 days With:Go to emergency room if symptoms worsen Address:Unknown When:2-4 days [facility] 12-06-2022 Note Discharge Instructions Thank you for allowing [facility] to assist you with your healthcare needs. The following is important discharge information regarding your hospital visit. Diagnosis from Today's Visit Dizziness Dizziness Headache What to Do Next Instructions from Your Care Team [place] plenty fluids stay well-hydrated. Take meclizine as needed for dizziness. Follow-up with your primary care provider. May benefit from vestibular therapy discussed with your primary care doctor. Return to the emergency department if you have worsening symptoms or any other care of concern. No qualifying data available. Post Acute Orders No qualifying data available. You Need to Schedule the Following Appointments Follow Up with MEHRAN KNIGHT DO When Within 2-4 days Where: [address] [place] [address] [phone] Follow Up with Go to emergency room if symptoms worsen When Within 2-4 days Allergies NKA Medications Please ask your primary doctor or pharmacist before taking any other medication not listed, including over the counter drugs, herbal medications, vitamins and or supplements as they may interact with your home medications. What How Much When Why Instructions Last Dose Changed meclizine (meclizine 12.5 mg oral tablet) 1 tab(s) by mouth Three (3) times a day as needed for as needed for dizziness Vertigo Changed meclizine (meclizine 25 mg oral tablet) 1 tab(s) by mouth Three (3) times a day as needed for as needed for dizziness Duration: 5 Days Printed Prescription Unchanged atorvastatin (atorvastatin 20 mg oral tablet) 1 tab(s) by mouth Once a day Duration: 90 Days Unchanged cyanocobalamin (cyanocobalamin 1000 mcg oral tablet) 1 tab(s) by mouth Every day Vitamin B12 deficiency Unchanged dilTIAZem (Taztia XT 360 mg/ 24 hours oral capsule, extended release) 1 cap by mouth Once a day Unchanged hydroCHLOROthiazide (hydroCHLOROthiazide 25 mg oral tablet) 1 tab(s) by mouth Once a day as needed for Blood pressure control Unchanged metoprolol (metoprolol succinate 25 mg oral TABLET extended release) 1 tab(s) by mouth Once a day Do not crush or chew (controlled release) Unchanged warfarin (warfarin 6 mg oral tablet) See instructions History of arterial thrombosis Take 2.5 tabs on Saturday and and 2 tabs PO on the other days of the week. Please take this list to your next doctor s visit. Bring all medications you take, including over the counter medications, herbals and other supplements with you to your doctor s visit. Patients and families are reminded to discard old lists and to update any records with all medication providers or retail pharmacies. Education Materials Dizziness (Uncertain Cause) Dizziness is a common symptom. It may be described as lightheadedness, spinning, or feeling like you are going to faint. Dizziness can have many causes. Be sure to tell the healthcare provider about: All medicines you take, including prescription, [id number], herbs, and supplements Any other symptoms you have Any health problems you are being treated for Any past major health problems you've had, such as a heart attack, balance issues, hearing problems, or blood pressure problems Anything that causes the dizziness to get worse or better Today's exam did not show an exact cause for your dizziness. Other tests may be needed. Follow up with your healthcare provider. Home care Dizziness that occurs with sudden standing may be a sign of mild dehydration. Drink extra fluids for the next few days. If you recently started a new medicine, stopped a medicine, or had the dose of a current medicine changed, talk with the prescribing healthcare provider. Your medicine plan may need adjustment. If dizziness lasts more than a few seconds, sit or lie down until it passes. This may help prevent injury in case you pass out. Get up slowly when you feel better. Don't drive or use power tools or dangerous equipment until you have had no dizziness for at least 48 hours. Follow-up care Follow up with your healthcare provider for further evaluation within the next 7 days or as advised. When to seek medical advice Call your healthcare provider for any of the following: Worsening of symptoms or new symptoms Passing out or seizure Repeated vomiting Headache Palpitations (the sense that your heart is fluttering or beating fast or hard) Shortness of breath Blood in vomit or stool (black or red color) Weakness of an arm or leg or 1 side of the face Vision or hearing changes Trouble walking or speaking Chest, arm, neck, back, or jaw pain [id number] [employer]. [address] [place] [address], [place] [address]. All rights reserved. This information is not intended as a substitute for professional medical care. Always follow your healthcare professional's instructions. Additional Information VACCINATE! IT SAVES LIVES! Members of the community who have not yet received the COVID-19 vaccine and would like to receive it can visit one of [facility] vaccine clinics. There are many vaccine clinic locations within the [facility]. For locations and available times, please visit [email or web address] [email or web address] It is important to note that some COVID mobile vaccine clinics are held outdoors and may be canceled in rainy or stormy conditions. To learn more about pediatric vaccinations (ages 5-11), we invite you to visit the [facility] webpage. [email or web address]://[email or web address] [employer]ann[employer].org/pag [email or web address]-Ytsnp-Qbvzbxfaavd-Frequent rl-Jgawx-Lkcaubmem.html To learn more about the COVID-19 vaccine, we invite you to visit the CDC website for a list of frequently asked questions. https://www.cdc.gov/coronavirus/20 19-ncov/vaccines/faq.html [facility] Patient Portal Access Instructions: Stay connected with your healthcare team and access your personal medical information anytime with the [facility] Patient Portal. If you would like a full copy of your medical records please contact the [facility] Medical Records Department Saturday through Saturday between 8a.m. and 4:30p.m. Please follow the directions below to access the portal: 1.Access the email account you provided upon registration to the hospital.2.Look for an invitation email from [facility].3.Open the email and access the invitation link: Accept Invitation to [facility]4.Fill in the required johns to create your account. Sign into www.[employer] with your username and password that you created in the above steps to stay up to date. You can then view a summary of results, a summary of your visits, and the ability to download your summaries to your computer or send the information securely to a physician. Remember that your healthcare information is confidential, so carefully consider who you will allow to register on the [facility] Patient Portal for access to your information. You can also access the [facility] Patient Portal on the [employer] carloz. Simply click on Health Records under Health Data and then click on the [employer] logo. HOW TO SAFELY DISPOSE OF PRESCRIPTION MEDICATIONS Please use one of the following methods to safely dispose of your unused medications. 1.Use a drug disposal kit: the drug disposal pouch allows you to safely discard your old and unused drugs. Ask your nurse to give you one when you are discharged.2.Visit a local take-back location: Many local pharmacies and police departments have programs that collect old and unwanted prescription drugs. Call your local pharmacy or go to http://ClearStar.ON-S Segurança Online/9X0Hr0r to find one close to you.3.Make use of household items: Use cat litter or old coffee grounds to dispose medications if other options are not available. Mix your drugs with these household products, seal them in an airtight container and throw it into the garbage. Call [facility]: [phone] to be sure your drugs can be disposed of in this way. Some medicines may require a different approach.4.Never flush your medications down the toilet. IF YOU HAVE BEEN PRESCRIBED AN OPIOIDS FOR PAIN If you have been prescribed an opioid (such as hydrocodone, oxycodone or morphine), it is critical to understand the possible side effects and risks of opioid pain medications. Even when taken as directed, opioids can have several side effects including: Tolerance, meaning you might need to take more of a medication for the same pain relief. Nausea, vomiting and/or constipation. Sleepiness, dizziness, dry mouth, confusion, depression or itching. Physical dependence, meaning you have withdrawal symptoms when a medication is stopped ? this can develop within a few days. KNOW YOUR RESPONSIBILITIES It is important to know exactly how much and how often to take the opioid pain medications you are prescribed. Never take opioids in higher amounts or more often than prescribed. Do not combine opioids with alcohol or other drugs that cause drowsiness, such as benzodiazepines, also known as benzos, including diazepam and alprazolam, muscle relaxants or sleep aids. Never sell or share prescription opioids. This is illegal. Store opioids in a secure place and out of reach of others (including children, family, friends and visitors). The last page(s) of this document has been signed and retained as a CHART COPY Signatures Patient Education Materials Dizziness, Uncertain Cause Medication Leaflets My discharge plan and instructions have been reviewed and explained to me and I,LES ARCOS understand my current condition and have read and understand these discharge instructions. I have received a written copy of the plan/instructions. If I have questions, I am aware that I should contact my doctor. Patient/Cv Rn Signature: Date/Time: Relationship to Patient: ___ Witness Name/Signature: Date/Time: [facility] 12-06-2022 Note ORIGINAL EXAMINATION: ONE XRAY VIEW OF THE CHEST 12/06/2022 11:13 pm COMPARISON: Radiograph of the chest May 25, 2022 HISTORY: ORDERING SYSTEM PROVIDED HISTORY: Reason for Exam: chest pain FINDINGS: Cardiomediastinal silhouette is likely unchanged in size given differences in patient positioning. Costophrenic angles are sharp. No radiographic pneumothorax. No definite focal consolidation. Osseous structures grossly unchanged. IMPRESSION: No acute radiographic findings. Interpreted by: Mohan Araujo Preliminary Report By: Mohan Araujo Electronically signed By Mohan Araujo Dictated Date: 12/06/2022 11:15:42 PM Prelim Date: 12/06/2022 11:16:20 PM Sign Date: 12/06/2022 11:16:20 PM Ordering Provider: DARELL ORTIZ [facility] 12-06-2022 Note ORIGINAL EXAMINATION: CT OF THE HEAD WITHOUT CONTRAST 12/06/2022 11:07 pm TECHNIQUE: CT of the head was performed without the administration of intravenous contrast. Automated exposure control, iterative reconstruction, and/or weight based adjustment of the mA/kV was utilized to reduce the radiation dose to as low as reasonably achievable. COMPARISON: MRI of the brain April 04, 2018. HISTORY: ORDERING SYSTEM PROVIDED HISTORY: Reason for Exam: heache, dizziness FINDINGS: BRAIN/VENTRICLES: There is no acute intracranial hemorrhage, mass effect or midline shift. No abnormal extra-axial fluid collection. Old small hypodensity in the right posterior cerebellum. The flores-white differentiation is maintained without evidence of an acute infarct. There is no evidence of hydrocephalus. ORBITS: The visualized portion of the orbits demonstrate no acute abnormality. SINUSES: The visualized paranasal sinuses and mastoid air cells demonstrate no acute abnormality. SOFT TISSUES/SKULL: No acute abnormality of the visualized skull or soft tissues. IMPRESSION: No acute intracranial hemorrhage or acute large vessel territory infarct.. Interpreted by: Mohan Araujo Preliminary Report By: Mohan Araujo Electronically signed By Mohan Araujo Dictated Date: 12/06/2022 11:10:09 PM Prelim Date: 12/06/2022 11:11:37 PM Sign Date: 12/06/2022 11:11:37 PM Ordering Provider: DARELL ORTIZ [facility] 12-06-2022 Note Sinus rhythm Left ventricular hypertrophy Electronic Signature: DARELL ORTIZ DO 12/06/2022 22:47:54 [facility] 09-07-2022 Hospital Discharge instructions Patient Education 09/07/2022 14:07:58 Back Care Tips Back Care Tips Caring for your back These are things you can do to prevent a recurrence of acute back pain and to reduce symptoms from chronic back pain: Maintain a healthy weight. If you are overweight, losing weight will help most types of back pain. Exercise is an important part of recovery from most types of back pain. The muscles behind and in front of the spine support the back. This means strengthening both the back muscles and the abdominal muscles will provide better support for your spine. Swimming and brisk walking are good overall exercises to improve your fitness level. Practice safe lifting methods (below). Practice good posture when sitting, standing and walking. Avoid prolonged sitting. This puts more stress on the lower back than standing or walking. Wear quality shoes with sufficient arch support. Foot and ankle alignment can affect back symptoms. Women should avoid wearing high heels. Therapeutic massage can help relax the back muscles without stretching them. During the first 24 to 72 hours after an acute injury or flare-up of chronic back pain, apply an ice pack to the painful area for 20 minutes and then remove it for 20 minutes, over a period of 60 to 90 minutes, or several times a day. As a safety precaution, do not use a heating pad at bedtime. Sleeping on a heating pad can lead to skin mckeon or tissue damage. You can alternate ice and heat therapies. Medicines Talk to your healthcare provider before using medicines, especially if you have other medical problems or are taking other medicines. You may use acetaminophen or ibuprofen to control pain, unless your healthcare provider prescribed other pain medicine. If you have chronic conditions like diabetes, liver or kidney disease, stomach ulcers, or gastrointestinal bleeding, or are taking blood thinners, talk with your healthcare provider before taking any medicines. Be careful if you are given prescription pain medicines, narcotics, or medicine for muscle spasm. They can cause drowsiness, affect your coordination, reflexes, and judgment. Do not drive or operate heavy machinery while taking these types of medicines. Take prescription pain medicine only as prescribed by your healthcare provider. Lumbar stretch Here is a simple stretching exercise that will help relax muscle spasm and keep your back more limber. If exercise makes your back pain worse, don t do it. Lie on your back with your knees bent and both feet on the ground. Slowly raise your left knee to your chest as you flatten your lower back against the floor. Hold for 5 seconds. Relax and repeat the exercise with your right knee. Do 10 of these exercises for each leg. Safe lifting method Don t bend over at the waist to lift an object off the floor. Instead, bend your knees and hips in a squat. Keep your back and head upright Hold the object close to your body, directly in front of you. Straighten your legs to lift the object. Lower the object to the floor in the reverse fashion. If you must slide something across the floor, push it. Posture tips Sitting Sit in chairs with straight backs or low-back support. Keep your knees lower than your hips, with your feet flat on the floor. When driving, sit up straight. Adjust the seat forward so you are not leaning toward the steering wheel. A small pillow or rolled towel behind your lower back may help if you are driving long distances. Standing When standing for long periods, shift most of your weight to one leg at a time. Alternate legs every few minutes. Sleeping The best way to sleep is on your side with your knees bent. Put a low pillow under your head to support your neck in a neutral spine position. Avoid thick pillows that bend your neck to one side. Put a pillow between your legs to further relax your lower back. If you sleep on your back, put pillows under your knees to support your legs in a slightly flexed position. Use a firm mattress. If your mattress sags, replace it, or use a 1/2-inch plywood board under the mattress to add support. Follow-up care Follow up with your healthcare provider, or as advised. If X-rays, a CT scan or an MRI scan were taken, they will be reviewed by a radiologist. You will be notified of any new findings that may affect your care. Call 911 Call 911 if any of the following occur: Trouble breathing Confusion Very drowsy Fainting or loss of consciousness Rapid or very slow heart rate Loss of bowel or bladder control When to seek medical advice Call your healthcare provider right away if any of the following occur: Pain becomes worse or spreads to your arms or legs Weakness or numbness in one or both arms or legs Numbness in the groin area [id number] [employer]. [address] [place] [address]. All rights reserved. This information is not intended as a substitute for professional medical care. Always follow your healthcare professional's instructions. Follow Up Care 09/07/2022 12:25:50 With:MEHRAN KNIGHT DO Address: [address] [place] [id number] [phone] When:2-4 days [facility] 09-07-2022 Note Discharge Instructions Thank you for allowing [facility] to assist you with your healthcare needs. The following is important discharge information regarding your hospital visit. Diagnosis from Today's Visit Back pain Flank pain What to Do Next Instructions from Your Care Team No qualifying data available. Post Acute Orders No qualifying data available. You Need to Schedule the Following Appointments Follow Up with MEHRAN KNIGHT DO When Within 2-4 days Where: [address] [place] [phone] Allergies NKA Medications Please ask your primary doctor or pharmacist before taking any other medication not listed, including over the counter drugs, herbal medications, vitamins and or supplements as they may interact with your home medications. What How Much When Why Instructions Last Dose Unchanged atorvastatin (atorvastatin 20 mg oral tablet) 1 tab(s) by mouth Once a day Duration: 90 Days Unchanged cyanocobalamin (cyanocobalamin 1000 mcg oral tablet) 1 tab(s) by mouth Every day Vitamin B12 deficiency Unchanged dilTIAZem (Taztia XT 360 mg/ 24 hours oral capsule, extended release) 1 cap by mouth Once a day Unchanged hydroCHLOROthiazide (hydroCHLOROthiazide 25 mg oral tablet) 1 tab(s) by mouth Once a day as needed for Blood pressure control Unchanged meclizine (meclizine 12.5 mg oral tablet) 1 tab(s) by mouth Three (3) times a day as needed for as needed for dizziness Vertigo Unchanged metoprolol (metoprolol succinate 25 mg oral TABLET extended release) 1 tab(s) by mouth Once a day Do not crush or chew (controlled release) Unchanged warfarin (warfarin 6 mg oral tablet) See instructions History of arterial thrombosis Take 2.5 tabs on Saturday and and 2 tabs PO on the other days of the week. Please take this list to your next doctor s visit. Bring all medications you take, including over the counter medications, herbals and other supplements with you to your doctor s visit. Patients and families are reminded to discard old lists and to update any records with all medication providers or retail pharmacies. Education Materials Back Care Tips Caring for your back These are things you can do to prevent a recurrence of acute back pain and to reduce symptoms from chronic back pain: Maintain a healthy weight. If you are overweight, losing weight will help most types of back pain. Exercise is an important part of recovery from most types of back pain. The muscles behind and in front of the spine support the back. This means strengthening both the back muscles and the abdominal muscles will provide better support for your spine. Swimming and brisk walking are good overall exercises to improve your fitness level. Practice safe lifting methods (below). Practice good posture when sitting, standing and walking. Avoid prolonged sitting. This puts more stress on the lower back than standing or walking. Wear quality shoes with sufficient arch support. Foot and ankle alignment can affect back symptoms. Women should avoid wearing high heels. Therapeutic massage can help relax the back muscles without stretching them. During the first 24 to 72 hours after an acute injury or flare-up of chronic back pain, apply an ice pack to the painful area for 20 minutes and then remove it for 20 minutes, over a period of 60 to 90 minutes, or several times a day. As a safety precaution, do not use a heating pad at bedtime. Sleeping on a heating pad can lead to skin mckeon or tissue damage. You can alternate ice and heat therapies. Medicines Talk to your healthcare provider before using medicines, especially if you have other medical problems or are taking other medicines. You may use acetaminophen or ibuprofen to control pain, unless your healthcare provider prescribed other pain medicine. If you have chronic conditions like diabetes, liver or kidney disease, stomach ulcers, or gastrointestinal bleeding, or are taking blood thinners, talk with your healthcare provider before taking any medicines. Be careful if you are given prescription pain medicines, narcotics, or medicine for muscle spasm. They can cause drowsiness, affect your coordination, reflexes, and judgment. Do not drive or operate heavy machinery while taking these types of medicines. Take prescription pain medicine only as prescribed by your healthcare provider. Lumbar stretch Here is a simple stretching exercise that will help relax muscle spasm and keep your back more limber. If exercise makes your back pain worse, don t do it. Lie on your back with your knees bent and both feet on the ground. Slowly raise your left knee to your chest as you flatten your lower back against the floor. Hold for 5 seconds. Relax and repeat the exercise with your right knee. Do 10 of these exercises for each leg. Safe lifting method Don t bend over at the waist to lift an object off the floor. Instead, bend your knees and hips in a squat. Keep your back and head upright Hold the object close to your body, directly in front of you. Straighten your legs to lift the object. Lower the object to the floor in the reverse fashion. If you must slide something across the floor, push it. Posture tips Sitting Sit in chairs with straight backs or low-back support. Keep your knees lower than your hips, with your feet flat on the floor. When driving, sit up straight. Adjust the seat forward so you are not leaning toward the steering wheel. A small pillow or rolled towel behind your lower back may help if you are driving long distances. Standing When standing for long periods, shift most of your weight to one leg at a time. Alternate legs every few minutes. Sleeping The best way to sleep is on your side with your knees bent. Put a low pillow under your head to support your neck in a neutral spine position. Avoid thick pillows that bend your neck to one side. Put a pillow between your legs to further relax your lower back. If you sleep on your back, put pillows under your knees to support your legs in a slightly flexed position. Use a firm mattress. If your mattress sags, replace it, or use a 1/2-inch plywood board under the mattress to add support. Follow-up care Follow up with your healthcare provider, or as advised. If X-rays, a CT scan or an MRI scan were taken, they will be reviewed by a radiologist. You will be notified of any new findings that may affect your care. Call 911 Call 911 if any of the following occur: Trouble breathing Confusion Very drowsy Fainting or loss of consciousness Rapid or very slow heart rate Loss of bowel or bladder control When to seek medical advice Call your healthcare provider right away if any of the following occur: Pain becomes worse or spreads to your arms or legs Weakness or numbness in one or both arms or legs Numbness in the groin area [id number] [employer]. [address] [place] [address]. All rights reserved. This information is not intended as a substitute for professional medical care. Always follow your healthcare professional's instructions. Additional Information VACCINATE! IT SAVES LIVES! Members of the community who have not yet received the COVID-19 vaccine and would like to receive it can visit one of [facility] vaccine clinics. There are many vaccine clinic locations within the [facility]. For locations and available times, please visit [email or web address] [email or web address] It is important to note that some COVID mobile vaccine clinics are held outdoors and may be canceled in rainy or stormy conditions. To learn more about pediatric vaccinations (ages 5-11), we invite you to visit the [facility] webpage. https://www.[email or web address].org/pag es/4598-Drpor-Bckukygufnt-[email or web address] zg-Pbeyc-Ceshsgpwh.html To learn more about the COVID-19 vaccine, we invite you to visit the CDC website for a list of frequently asked questions. https://www.cdc.gov/coronavirus/-ncov/vaccines/faq.html [facility] Patient Portal Access Instructions: Stay connected with your healthcare team and access your personal medical information anytime with the [facility] Patient Portal. If you would like a full copy of your medical records please contact the [facility] Medical Records Department Saturday through Saturday between 8a.m. and 4:30p.m. Please follow the directions below to access the portal: 1.Access the email account you provided upon registration to the [facility].2.Look for an invitation email from [facility].3.Open the email and access the invitation link: Accept Invitation to [facility]4.Fill in the required johns to create your account. Sign into www.[employer] with your username and password that you created in the above steps to stay up to date. You can then view a summary of results, a summary of your visits, and the ability to download your summaries to your computer or send the information securely to a physician. Remember that your healthcare information is confidential, so carefully consider who you will allow to register on the [facility] Patient Portal for access to your information. You can also access the [facility] Patient Portal on the [employer]. Simply click on Health Records under Health Data and then click on the [employer] logo. HOW TO SAFELY DISPOSE OF PRESCRIPTION MEDICATIONS Please use one of the following methods to safely dispose of your unused medications. 1.Use a drug disposal kit: the drug disposal pouch allows you to safely discard your old and unused drugs. Ask your nurse to give you one when you are discharged.2.Visit a local take-back location: Many local pharmacies and police departments have programs that collect old and unwanted prescription drugs. Call your local pharmacy or go to http://bit.ly/0C3Cg5f to find one close to you.3.Make use of household items: Use cat litter or old coffee grounds to dispose medications if other options are not available. Mix your drugs with these household products, seal them in an airtight container and throw it into the garbage. Call [facility]: [phone] to be sure your drugs can be disposed of in this way. Some medicines may require a different approach.4.Never flush your medications down the toilet. IF YOU HAVE BEEN PRESCRIBED AN OPIOIDS FOR PAIN If you have been prescribed an opioid (such as hydrocodone, oxycodone or morphine), it is critical to understand the possible side effects and risks of opioid pain medications. Even when taken as directed, opioids can have several side effects including: Tolerance, meaning you might need to take more of a medication for the same pain relief. Nausea, vomiting and/or constipation. Sleepiness, dizziness, dry mouth, confusion, depression or itching. Physical dependence, meaning you have withdrawal symptoms when a medication is stopped ? this can develop within a few days. KNOW YOUR RESPONSIBILITIES It is important to know exactly how much and how often to take the opioid pain medications you are prescribed. Never take opioids in higher amounts or more often than prescribed. Do not combine opioids with alcohol or other drugs that cause drowsiness, such as benzodiazepines, also known as benzos, including diazepam and alprazolam, muscle relaxants or sleep aids. Never sell or share prescription opioids. This is illegal. Store opioids in a secure place and out of reach of others (including children, family, friends and visitors). The last page(s) of this document has been signed and retained as a CHART COPY Signatures Patient Education Materials Back Care Tips Medication Leaflets My discharge plan and instructions have been reviewed and explained to me and IJOSSELYN TAWAINA understand my current condition and have read and understand these discharge instructions. I have received a written copy of the plan/instructions. If I have questions, I am aware that I should contact my doctor. Patient/Cv Rn Signature: Date/Time: Relationship to Patient: ___ Witness Name/Signature: Date/Time: [facility] 09-07-2022 Note ORIGINAL HISTORY: Abdominal pain, right flank pain COMPARISON: No TECHNIQUE: CT of the abdomen and pelvis with sagittal and coronal reconstructions. This exam was performed according to our departmental dose optimization program, and includes the following measures where applicable: automated exposure control, adjustment of the mAs and/or kVp according to patient size and/or exam, and an iterative reconstruction algorithm. FINDINGS: There is a right renal cyst with a few punctate calcifications. There are no ureteral or left renal calcifications. The remaining abdominal organs are unremarkable in appearance. Bowel is poorly evaluated in the absence of oral contrast. A normal appendix is identified. There is no free fluid. There is bilateral sacroiliitis, greater on the left. There is diastasis recti. IMPRESSION: Punctate calcifications in the right kidney, associated with a small cyst. No signs of recent stone passage on either side. Bilateral sacroiliitis. Interpreted by: Jairo Palafox MD Preliminary Report By: Jairo Palafox MD Electronically signed By Jairo Palafox MD Dictated Date: 09/07/2022 1:16:52 PM Prelim Date: 09/07/2022 1:20:06 PM Sign Date: 09/07/2022 1:20:06 PM Ordering Provider: STACEY JACKSON [facility] 09-07-2022 Note ORIGINAL HISTORY: Abdominal pain, right flank pain COMPARISON: No TECHNIQUE: CT of the abdomen and pelvis with sagittal and coronal reconstructions. This exam was performed according to our departmental dose optimization program, and includes the following measures where applicable: automated exposure control, adjustment of the mAs and/or kVp according to patient size and/or exam, and an iterative reconstruction algorithm. FINDINGS: There is a right renal cyst with a few punctate calcifications. There are no ureteral or left renal calcifications. The remaining abdominal organs are unremarkable in appearance. Bowel is poorly evaluated in the absence of oral contrast. A normal appendix is identified. There is no free fluid. There is bilateral sacroiliitis, greater on the left. There is diastasis recti. IMPRESSION: Punctate calcifications in the right kidney, associated with a small cyst. No signs of recent stone passage on either side. Bilateral sacroiliitis. Interpreted by: Jairo Palafox MD Preliminary Report By: Jairo Palafox MD Electronically signed By Jairo Palafox MD Dictated Date: 09/07/2022 1:16:52 PM Prelim Date: 09/07/2022 1:20:06 PM Sign Date: 09/07/2022 1:20:06 PM Ordering Provider: STACEY JACKSON [facility] 05-28-2022 Evaluation + Plan note Future Scheduled TestsCT Coronary Angiography w+w/o Contrast 05/28/22 [facility] 05-11-2021 Hospital Discharge instructions Patient Education 05/11/2021 20:21:53 Self-Care for Strains and Sprains Self-Care for Strains and Sprains Most minor strains and sprains can be treated with self-care. Recovering from a strain or sprain may take 6 to 8 weeks. Your self-care goal is to reduce pain and immobilize the injury to speed healing. A sprain injures ligaments (tissue that connects bones to bones). A strain injures muscles or tendons (tissue that connects muscles to bones). Support the injured area Wrapping the injured area provides support for short, necessary activities. Be careful not to wrap the area too tightly. This could cut off the blood supply. Support a wrist, elbow, or shoulder with a sling. Wrap an ankle or knee with an elastic bandage. Tape a finger or toe to the one next to it. Use cold and heat Cold reduces swelling. Both cold and heat reduce pain. Heat should not be used in the initial treatment of the injury. When using cold or heat, always place a thin towel between the pack and your skin. Apply ice or a cold pack 10 to 15 minutes every hour you re awake for the first 2 days. After the swelling goes down, use cold or heat to control pain. Don t use heat late in the day, since it can cause swelling when you re not active. Rest and elevate Rest and elevation help your injury heal faster. Raise the injured area above your heart level. Keep the injured area from moving. Limit the use of the joint or limb. Use medicine Aspirin reduces pain and swelling. (Note: Don t give aspirin to a child 18 or younger unless prescribed by the doctor.) Non-steroidal anti-inflammatory medicines, such as ibuprofen, may reduce pain and swelling, as well. Ask your healthcare provider for advice. When to call your healthcare provider Call your healthcare provider if: The injured joint won t move, or bones make a grating sound when they move You can t put weight on the injured area, even after 24 hours The injured body part is cold, blue, tingling, or numb The joint or limb appears bent or crooked. Pain increases or doesn t improve in 4 days When pressing along the injured area, you notice a spot that is especially painful [employer]. [address] [place] [address]. All rights reserved. This information is not intended as a substitute for professional medical care. Always follow your healthcare professional's instructions. 05/11/2021 20:21:43 Sciatica Sciatica Sciatica is a condition that causes pain in the lower back that spreads down into the buttock, hip, and leg. Sometimes the leg pain can happen without any back pain. Sciatica happens when a spinal nerve is irritated or has pressure put on it as comes out of the spinal canal in the lower back. This most often happens when a bulge or rupture of a nearby spinal disk presses on the nerve. Sciatica can also be caused by a narrowing of the spinal canal (spinal stenosis) or spasm of the muscle in the buttocks that the sciatic nerve passes through (pyriform muscle). Sciatica is also called lumbar radiculopathy. Sciatica may begin after a sudden twisting or bending force, such as in a car accident. Or it can happen after a simple awkward movement. In either case, muscle spasm often also happens. Muscle spasm makes the pain worse. A healthcare provider makes a diagnosis of sciatica from your symptoms and a physical exam. Unless you had an injury from a car accident or fall, you usually won t have X-rays taken at this time. This is because the nerves and disks in your back can t be seen on an X-ray. If the provider sees signs of a compressed nerve, you will need to schedule an MRI scan as an outpatient. Signs of a compressed nerve include loss of strength in a leg. Most sciatica gets better with medicine, exercise, and physical therapy. If your symptoms continue after at least 3 months of medical treatment, you may need surgery or injections to your lower back. Home care Follow these tips when caring for yourself at home: You may need to stay in bed the first few days. But as soon as possible, begin sitting up or walking. This will help you avoid problems that come from staying in bed for long periods. When in bed, try to find a position that is comfortable. A firm mattress is best. Try lying flat on your back with pillows under your knees. You can also try lying on your side with your knees bent up toward your chest and a pillow between your knees. Avoid sitting for long periods. This puts more stress on your lower back than standing or walking. Use heat from a hot shower, hot bath, or heating pad to help ease pain. Massage can also help. You can also try using an ice pack. You can make your own ice pack by putting ice cubes in a plastic bag. Wrap the bag in a thin towel. Try both heat and cold to see which works best. Use the method that feels best for 20 minutes several times a day. You may use acetaminophen or ibuprofen to ease pain, unless another pain medicine was prescribed. Note: If you have chronic liver or kidney disease, talk with your healthcare provider before taking these medicines. Also talk with your provider if you ve had a stomach ulcer or gastrointestinal bleeding. Use safe lifting methods. Don t lift anything heavier than 15 pounds until all of the pain is gone. Follow-up care Follow up with your healthcare provider, or as advised. You may need physical therapy or additional tests. If X-rays were taken, a radiologist will look at them. You will be told of any new findings that may affect your care. When to seek medical advice Call your healthcare provider right away if any of these occur: Pain gets worse even after taking prescribed medicine Weakness or numbness in 1 or both legs or hips Numbness in your groin or genital area You can t control your bowel or bladder Fever Redness or swelling over your back or spine [id number] [employer]. [address] [place] [address], [place] [address]. All rights reserved. This information is not intended as a substitute for professional medical care. Always follow your healthcare professional's instructions. Follow Up Care 05/11/2021 18:18:25 With:Go to emergency room if symptoms worsen Address:Unknown When:2-4 days With:MEHRAN KNIGHT DO Address: [phone] When:2-4 days [facility] Evaluation + Plan note Future Appointments Appointment Date:06/23/2021 10:30:00 AM Scheduled Provider: Location:[facility] Appointment Type:PC Nurse Protime Appointment Date:07/31/2021 11:30:00 AM Scheduled Provider:MEHRAN KNIGHT DO Location:[facility] Appointment Type:PC OV Future Scheduled TestsThyroid Stimulating Hormone 01/30/21Vitamin B12 Level 01/30/21Lipid Profile 01/30/21Microalbumin Level Urine 01/30/21Complete Metabolic Panel 01/30/21 [facility] Evaluation + Plan note Future Appointments Appointment Date:06/23/2021 10:30:00 AM Scheduled Provider: Location:[facility] Appointment Type:PC Nurse Protime Appointment Date:07/31/2021 11:30:00 AM Scheduled Provider:MEHRAN KNIGHT DO Location:[facility] Appointment Type:PC OV Future Scheduled TestsThyroid Stimulating Hormone 01/30/21Vitamin B12 Level 01/30/21Lipid Profile 01/30/21Microalbumin Level Urine 01/30/21Complete Metabolic Panel 01/30/21XR Spine Lumbar W/Obliques 4 Views 05/15/21 [facility] Evaluation + Plan note Future Appointments Appointment Date:08/14/2021 10:30:00 AM Scheduled Provider: Location:[facility] Appointment Type:PC Nurse Protime Appointment Date:01/29/2022 10:30:00 AM Scheduled Provider:MEHRAN KNIGHT DO Location:[facility] Appointment Type:PC OV Future Scheduled TestsXR Spine Lumbar W/Obliques 4 Views 05/15/21 [facility] Evaluation + Plan note Future Appointments Appointment Date:01/01/2022 09:15:00 AM Scheduled Provider: Location:[facility] Appointment Type:PC Nurse Protime Appointment Date:01/15/2022 11:30:00 AM Scheduled Provider:MEHRAN KNIGHT DO Location:[facility] Appointment Type:PC OV Follow Up Appointment Date:01/29/2022 10:30:00 AM Scheduled Provider:MEHRAN KNIGHT DO Location:[facility] Appointment Type:PC OV Future Scheduled TestsXR Spine Lumbar W/Obliques 4 Views 05/15/21 [facility] Evaluation + Plan note Future Appointments Appointment Date:04/11/2023 03:45:00 PM Scheduled Provider: Location:[facility] Appointment Type:PC Nurse Protime Appointment Date:05/09/2023 09:30:00 AM Scheduled Provider:MEHRAN KNIGHT DO Location:[facility] Appointment Type:PC OV Future Scheduled TestsCT Coronary Angiography w+w/o Contrast 05/28/22 [facility] Hospital course Narrative No data available for this section [facility] Hospital Discharge instructions No data available for this section [facility] Progress note No data available for this section [facility] Summary Purpose Family History No Family History Records FoundNo Family History Records Found No data available for this section No data available for this section No Family History Records Found No data available for this section No Family History Records Found Advance Directives No Advanced Directives Records FoundNo Advanced Directives Records FoundNo Advanced Directives Records FoundNo Advanced Directives Records Found History of Present Illness * LisaThi - 07/08/2020 2:14 PM EST VIRTUAL VISIT PROGRESS NOTE This is a virtual visit using Audio only. It required patient-provider interaction for the medical decision making as documented below. 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 She has had a previous left brachial thrombectomy and a R LE thrombectomy at outside institutions due to hypercoaguable state. No current symptoms, continues coumadin. 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 Arterial thrombosis (HCC) Essential hypertension Hyperlipidemia Paresthesia Shoulder pain PAST SURGICAL HISTORY Procedure Laterality Date PAST SURGICAL HISTORY OF 06/14/2014 LEFT BRACHIAL EMBOLECTOMY TONSILLECTOMY HX 2000 FAMILY HISTORY Problem Relation Age of Onset Hypertension Mother Hypertension Maternal Grandfather Social History Tobacco Use Smoking status: Never Smoker Smokeless tobacco: Never Used Substance Use Topics Alcohol use: No Drug use: Not on file Current Outpatient Medications Medication Sig SUMAtriptan (IMITREX) 100 mg tablet atorvastatin (LIPITOR) 20 mg tablet Take 20 mg by mouth once daily. warfarin (COUMADIN) 10 mg tablet Take 10 mg by mouth once daily. Taking 12mg per day Diltiazem HCl 360 mg 24 hr capsule Take 360 mg by mouth once daily. No current facility-administered medications for this visit. ALLERGIES No Known Allergies REVIEW OF SYSTEMS: All other ROS: negative PHYSICAL EXAMINATION: VIDEO EXAM: (if completed, performed via video enabled technology) No exam performed ASSESSMENT: (I74.9) Arterial thromboembolism (HCC) (primary encounter diagnosis) PLAN: Ms. Arcos remains symptom free with stable normal PVRs. She will follow up in 1 year with a repeat PVR study. There are no Patient Instructions on file for this visit. It was necessary to convert the virtual visit to a telephone encounter due to technical difficulties. Thi Gonzalez MD documented in this encounter Assessments Diagnosis Arterial thromboembolism (HCC)- Primary Embolism and thrombosis of unspecified artery Additional Source Comments Source Comments (unrecognize d section and content) In the event this informatio n is protected by the Federal Confidentiality of Alcohol and Drug Abuse Patient Records regulations: The Federal rules restrict any use of the information to criminally investigate or prosecute any alcohol or drug abuse patient.[facility] the event this information is protected by the Federal Confidentiality of Alcohol and Drug Abuse Patient Records regulations: The Federal rules restrict any use of the information to criminally investigate or prosecute any alcohol or drug abuse patient.[facility] INFORMATION SOURCE (unrecogn ized section and content) DATE CREATED AUTHOR 07/09/2020 [facility] DATE CREATED AUTHOR AUTHOR'S ORGANIZ ATION 07/09/2020 [facility] DATE CREATED AUTHOR AUTHOR'S ORGANIZ ATION 01/08/2024 [facility] ([place]) DATE CREATED AUTHOR AUTHOR'S ORGANIZ ATION 01/13/2024 [facility] Reason for Visit (unrecogniz ed section and content) Reason Comments Thrombosis Care Team (unrecognized sect ion and content) Personnel Name: MEHRAN KNIGHT DO Address: [address] [place] [address] Care Team Personnel Name: MEHRAN KNIGHT DO Position: P4 Physician - Primary Care Member Role: Primary Care Physician Address: Address: [address] [place] [address] Name: MANOJ Vizcarra Position: RN Member Role: ED RN Name: STACEY JACKSON MD Position: ED Physician Member Role: Attending Physician Address: Address: [facility] [address] [place] [address] Care Team Related Persons Name: LAZARA JUNG Name: CLAUDE ARCOS Address: Home [address] Care Team Personnel Name: MEHRAN KNIGHT DO Position: P4 Physician - Primary Care Member Role: Primary Care Physician Address: Address: [address] [place] [address] Name: DARELL ORTIZ DO Position: ED Physician Member Role: Attending Physician Address: Address: [address] [place] [address] Care Team Related Persons Name: LAZARA JUNG Name: CLAUDE ARCOS Address: [address] Care Team Personnel Name: MEHRAN KNIGHT DO Position: P4 Physician - Primary Care Member Role: Primary Care Physician Address: Address: [address] [place] [address] Name: STACEY JACKSON MD Position: ED Physician Member Role: Attending Physician Address: Address: [facility] [address] [place] [address]- Name: Lisa Rosario RN Position: ED RN Member Role: ED RN Care Team Related Persons Name: LAZARA JUNG Name: CLAUDE ARCOS Address: [address] Care Team Personnel Name: MEHRAN KNIGHT DO Position: P4 Physician - Primary Care Member Role: Primary Care Physician Address: Address: [address] [place] [address] Care Team Related Persons Name: WEST JUNGIL Name: CLAUDE ARCOS Address: [address] Care Team (unrecognized sect ion and content) Care Team Personnel Name: MEHRAN KNIGHT DO Position: P4 Physician - Primary Care Med Service: Active Provider Member Role: Primary Care Physician Address: Address: [address] [place] [address] Care Team Related Persons Name: LAZARA JUNG Name: ARTURGERIJEAN CARLOS CLAUDE Address: [address] FOR RECORDS PERTAINING TO PATIENTS WHO ARE OR HAVE BEEN ENROLLED IN A CHEMICAL DEPENDENCY/SUBSTANCEABUSE PROGRAM, SOME INFORMATION MAY BE OMITTED. This clinical summary was aggregated from multiple sources. Caution should be exercised in using it in the provision of clinical care. This summary normalizes information from multiple sources, and as a consequence, information in this document may materially change the coding, format and clinical context of patient data. In addition, data may be omitted in some cases. CLINICAL DECISIONS SHOULD BE BASED ON THE PRIMARY CLINICAL RECORDS. [facility] [employer] provides no warranty or guarantee of the accuracy or completeness of information in this document.
[2024-02-22] MEDS: Meclizine HCl 25 MG Tablet PO (22:44)
[2024-02-22 22:54] LABS: Absolute Lymphocyte Count 1.61 X10^3/uL (0.83-4.51); Absolute Neutrophil Count 3.6 X10^3/uL (2.0-7.7); Basophil# 0.04 X10^3/uL; Basophil% 0.6 % (0-1); Eosinophil# 0.21 X10^3/uL; Eosinophils% 3.3 % (0-5); Hematocrit 36.3 % (37-47); Lymphocyte # 1.61 X10^3/ul (0.83-4.51); Lymphocyte % 25.4 % (19-41); Mean Corp Hgb Conc 30.3 g/dL (32-36); Mean Corpuscular Hgb 25.2 pg (27.0-32.0); Mean Corpuscular Volume 83.1 fL (81-99); Monocyte# 0.88 X10^3/uL; Monocyte% 13.9 % (0-10); NRBC Flagged by Analyzer 0 % (0-5); Neutrophil # 3.59 X10^3/uL (2.7-7.7); Neutrophil % 56.6 % (47-70); Platelet Count 237 K/mm3 (150-450); RBC Distribution Width CV 18.6 % (11.6-14.6); RBC Distribution Width SD 56.2 fl (35.1-43.9); Red Blood Count 4.37 M/mm3 (4.2-5.4); White Blood Count 6.3 K/mm3 (4.4-11.0)
[2024-02-22 23:09] LABS: Anion Gap 3 (5-15); BUN 22 mg/dL (7-18); BUN/Creat Ratio 32.5 RATIO (10-20); Chloride 108 mmol/L (98-107); Creatinine, Serum 0.68 mg/dL (0.55-1.02); EST Glomerular Filtration Rate 98 mL/min (>60); Est Glom Filt Rate - Afr Amer 118 mL/min (>60); Estimated Creatinine Clearance 104.31 ml/min; Glucose 115 mg/dL (74-106); Potassium 4.2 mmol/L (3.5-5.1); Sodium Level 137 mmol/L (136-145)
[2024-02-22 23:20] LABS: Prothrombin Time (Protime)PT. 108.1 SECONDS (11.7-14.9)
[2024-02-22 23:41] VITALS: BP 165/77; PULSE 88; RESP 16; O2SAT 95
[2024-02-23 00:04] LABS: International Normalized Ratio 15.1
--- NOTE | 2024-02-23 00:09 | CT_ITS ---
EXAM: CT HEAD WITHOUT INTRAVENOUS CONTRAST CLINICAL INDICATION: headache, high inr TECHNIQUE: Multiple axial images were obtained of the head without intravenous contrast. This CT exam was performed using one or more of the following dose reduction techniques: automated exposure control, adjustment of the mA and/or kV according to patient size, and/or use of iterative reconstruction technique. COMPARISON: No relevant prior studies available. FINDINGS: BRAIN AND EXTRA-AXIAL SPACES: Unremarkable. No intra- or extra-axial hemorrhage. No evidence of acute infarct. No intracranial mass or mass effect. There is preservation of the flores/white matter interface. Posterior fossa structures are unremarkable. Ventricles are appropriate for age. No hydrocephalus. Basal cisterns are patent. BONES/JOINTS: Unremarkable. No discrete lytic or blastic abnormalities. SINUSES: Unremarkable as visualized. Clear. MASTOID AIR CELLS: Unremarkable. Clear. ORBITS: Visualized globes, extraocular muscles, optic nerves and retrobulbar fat appear unremarkable. CT/Brain/Head without Contrast IMPRESSION: No acute intracranial abnormality. ASSESSMENT: ASPECTS ([place] Stroke Program Early CT Score) is 10. Electronically Signed: Adrien Wong MD at 0:41 EDT ,
[2024-02-23] MEDS: Phytonadione (Vit K) 5 MG in 0.9% Normal Saline (50mL Bag) 50 ML 150 MG IV (00:36)
[2024-02-23 01:00] VITALS: BP 142/65; PULSE 66; RESP 16; O2SAT 96
[2024-02-23 01:25] VITALS: BP 133/64; PULSE 88; RESP 16; TEMP 36.7; O2SAT 93
== END 2024-02-23 01:26 | disposition home or self-care (01) ==
LOC: ED 22:29
PROVIDERS: Emergency Provider Emergency Medicine; PCP Preventive Medicine Occupational Medicine; Visit Provider Emergency Medicine
DX: H81.391 Other peripheral vertigo, right ear (principal); N93.8 Other specified abnormal uterine and vaginal bleeding; R79.1 Abnormal coagulation profile; E78.00 Pure hypercholesterolemia, unspecified; I10 Essential (primary) hypertension; G47.33 Obstructive sleep apnea (adult) (pediatric); Z79.01 Long term (current) use of anticoagulants; Z79.899 Other long term (current) drug therapy
CPT/HCPCS: 70450; 80048; 85025; 85610; 96365; 99283; A4216; J3490

== ENCOUNTER 2024-03-02 11:35 | Emergency (ER) | payer MEDICAID, SELFPAY ==
[2024-03-02] VITALS (10 sets, daily range): BP systolic 96–199; BP diastolic 45–179; PULSE 68–88; RESP 15–19; TEMP 36.4–36.7; O2SAT 97–98; BMI 39.6
--- NOTE | 2024-03-02 14:28 | EKG12_ITS ---
Test Reason : Blood Pressure : / mmHG Vent. Rate : 072 BPM Atrial Rate : 072 BPM P-R Int : 154 ms QRS Dur : 100 ms QT Int : 436 ms P-R-T Axes : 027 -08 -01 degrees QTc Int : 477 ms Normal sinus rhythm Moderate voltage criteria for LVH, may be normal variant ( R in aVL , Keagan product ) Cannot rule out Anterior infarct , age undetermined Abnormal ECG Confirmed by NATE RIVERA, ALIA ([id number]), sound editor AMANDO ESPINO ([id number]) on 03/03/2024 8:00:35 AM Referred By: Confirmed By:ALIA SULLIVAN MD
--- NOTE | 2024-03-02 14:29 | EX.ED.DYSGE1 ---
HPI History of Present Illness Chief Complaint: Dizziness Detail of Chief Complaint: Dizziness Informant: patient Narrative Narrative: Patient presents to the emergency department with complaint of dizziness for about 2 weeks. Patient states that she was seen in the emergency department and was started on meclizine for suspected vertigo. She tells me she had a scan of her brain that was unremarkable. Patient also on Coumadin for history of DVTs and was told her INR was 15 therefore she was discontinued and was given vitamin K. Patient had a follow-up appointment with her primary care physician today but missed it. So she wants to know what her INR is because she has not restarted her Coumadin. Patient continues to complain the same dizziness as before. She describes a spinning sensation. She denies any vomiting. She tells me the dizziness is continuous. The dizziness is there all the time and not necessarily associated with certain head position movements. [facility] Medical History Chest pain History of arterial thrombosis CAYLA (obstructive sleep apnea) Hypercholesteremia Hypertension Home Medications ?Medication ?Instructions ?Recorded ?Last Taken ?Type atorvastatin 20 mg tablet 20 mg PO DAILY 02/22/24 Unknown History diltiazem HCl 360 mg capsule,24 360 mg PO DAILY 02/22/24 Unknown History hr,extended release metoprolol succinate 25 mg 25 mg PO DAILY 02/22/24 Unknown History tablet,extended release 24 hr warfarin 6 mg tablet mg PO 02/22/24 Unknown History warfarin 6 mg tablet (Jantoven) 12 mg PO DAILY 02/22/24 Unknown History meclizine 25 mg tablet 25 mg PO Q8H PRN PRN Dizziness #20 02/23/24 Unknown Rx tabs lorazepam 1 mg tablet (Ativan) 1 mg PO TID PRN dizziness or 03/02/24 Unknown Rx vertigo #10 tabs warfarin 6 mg tablet 6 mg PO DAILY #30 tabs 03/02/24 Unknown Rx Allergy/AdvReac Type Severity Reaction Status Date / Time No Known Allergies Allergy Verified 03/02/24 11:38 Family History Mother Heart disease Social History Smoking Status: Never smoker alcohol intake: never substance use type: does not use ROS ROS ED Review of Systems ROS Unobtainable: other Constitutional Constitutional ED: Reports lethargy; Denies chills, fever(s), sweats or weight loss Eyes Eyes: Denies blurry vision, change in vision or diplopia ENT ENT ED: Denies rhinorrhea or sore throat Cardiovascular Cardiovascular: Denies chest pain, orthopnea or racing heartbeat Respiratory/Chest Respiratory/Chest: Denies cough, dyspnea, dyspnea on exertion, orthopnea or sputum Gastrointestinal Gastrointestinal: Denies abdominal pain, diarrhea, nausea or vomiting Genitourinary Genitourinary ED: Denies dysuria, hematuria or urinary frequency Musculoskeletal Musculoskeletal: Denies arthralgias, back pain, myalgias or neck pain Integumentary Denies abscess, Abrasions or rash Neurologic Neurologic: Reports other Details: Dizziness ; Denies headache(s) or weakness Psychiatric Psychiatric: Denies anxiety, depression or suicidal thoughts Endocrine Endocrinology: Denies polydipsia, polyphagia or polyuria Hematologic/Lymphatic Hematologic/Lymphatic: Denies easy bleeding, easy bruising or lymphadenopathy Allergic/Immunologic Allergic/Immunologic ED: Denies mouth swelling, tongue swelling or urticaria EXAM Physical Exam Const Vital Signs: 03/02/24 11:36 03/02/24 14:41 03/02/24 14:55 Temperature 98 F 98.1 F Temperature Source Temporal Oral Pulse Rate 80 74 Pulse Rate [Lying] 76 Pulse Rate [Sitting (for 1 minute prior to obtaining)] 77 Pulse Rate [Standing (for 1 minute prior to obtaining)] 88 Respiratory Rate 18 19 H Blood Pressure 152/77 H 165/76 H Blood Pressure [Lying] 159/62 H Blood Pressure [Sitting (for 1 minute prior to obtaining)] 168/86 H Blood Pressure [Standing (for 1 minute prior to obtaining)] 163/95 H Blood Pressure Mean 102 105 Blood Pressure Mean [Lying] 94 Blood Pressure Mean [Sitting (for 1 minute prior to obtaining)] 113 Blood Pressure Mean [Standing (for 1 minute prior to obtaining)] 117 Pulse Ox 98 97 Oxygen Delivery Method Room Air Room Air Positive well nourished and well developed General Appearance ED: well developed and NAD HEENT Reports TM's clear and moist mucous membranes normocephalic and atraumatic; Negative for trauma or tenderness Tympanic Membrane ED: Yes TM's clear Eyes PERRL and EOMs intact bilaterally General Eye ED: Negative for pale conjunctiva or scleral icterus Neck no lymphadenopathy, supple and no JVD General: Negative for tenderness Chest Wall inspection of chest normal and palpation of chest normal Chest: Negative for tenderness Resp normal respiratory effort and clear to auscultation bilaterally Effort and Inspection: Negative for respiratory distress or pain with movement Auscultation: Negative for rhonchi, wheezes or diminished lung sounds Cardio regular rate, regular rhythm, S1 normal heart sound, S2 normal heart sound and no murmurs Peripheral Pulses: pulses 2+ throughout GI normal to inspection, nondistended, normoactive bowel sounds, soft to palpation, non-tender, non-distended and no masses Back/Spine no CVA tenderness and no thoracic nor lumbar tenderness Extremity normal to inspection General Extremety ED: Negative for edema General Extremity: Negative for edema Neuro oriented x3, CN's II-XII intact bilaterally, no sensory deficits noted and gait normal Neuro Narrative: Hallpike maneuver performed was negative for nystagmus bilaterally. She complained of dizziness with head turn to the left and to the right. Finger-nose and heel curtis testing within normal limits, negative Romberg, negative pronator drift, fundi benign. Sensorium / Orientation: awake, alert, oriented to person, oriented to place and oriented to time Motor Exam: strength 5/5 throughout and strength abnormal Psych mental status grossly normal Skin no rashes or lesions noted and no wounds MDM MDM MDM Narrative Medical decision making narrative: Patient presents with dizziness and ongoing for over 2 weeks that initially was sudden onset. Had a visit to the emergency department and had a scan of her brain that was unremarkable and was noted to have an INR of 15. Patient on warfarin for history of DVTs. She tells me she has not had a DVT in over 10 years. She is not sure why she got DVTs. Patient was taking 12 mg of Coumadin daily and apparently on and Saturdays she was taking 12 and half milligrams. Patient's been without Coumadin since her last visit to the emergency department at which time she also got vitamin K. She presents with ongoing dizziness. She denies hearing loss or tinnitus. She denies falls or head injuries. CBC with differential obtained for white count 5.3 with hemoglobin 11.9 and platelet count 307. Chemistries unremarkable. INR was down to 1.3. BUN 12 and creatinine 0.54. Patient received a milligram of Ativan and symptomatically felt significantly improved. This point discussed restarting her warfarin at 6 mg daily and have a repeat INR with her primary care physician in 1 week. Patient will also be given as needed Ativan and I will give her a referral to neurology if her dizziness persists. Clinically I do not suspect stroke or posterior type stroke symptoms. I will obtain a CTA of the head and neck to rule out brain aneurysm or other significant abnormality. Care of patient turned over to evening physician awaiting CTA results and I feel as long as those look okay she can follow-up outpatient with neurology. Lab Data Attestation: I reviewed the patient's lab results. Labs: Laboratory Results - last 24 hr 03/02/24 15:03 WBC 5.3 RBC 4.64 Hgb 11.9 L Hct 38.6 MCV 83.2 MCH 25.6 L MCHC 30.8 L RDW Std Deviation 54.0 H RDW Coeff of Maria M 17.7 H Plt Count 307 MPV 10.5 Immature Gran % (Auto) 0.200 Neut % (Auto) 49.4 Lymph % (Auto) 33.6 Lamar % (Auto) 12.8 H Eos % (Auto) 3.4 Baso % (Auto) 0.6 Absolute Neuts (auto) 2.6 Absolute Lymphs (auto) 1.79 Nucleated RBC % 0 PT 16.0 H INR 1.3 Sodium 139 Potassium 3.6 Chloride 108 H Carbon Dioxide 27.0 Anion Gap 4 L BUN 12 Creatinine 0.54 L Estim Creat Clear Calc 131.26 Est GFR (MDRD) Af Amer 153 Est GFR (MDRD) Non-Af 127 BUN/Creatinine Ratio 22.2 H Glucose 77 Calcium 9.3 Discharge Plan Triage Chief Complaint: Dizziness ED Provider: Carlo Stokes Dx/Rx/DC Orders Clinical Impression: Dizziness, Vertigo Instructions: ED Dizziness, Uncertain Cause, ED Vertigo, Unspecified Prescriptions: New warfarin 6 mg tablet 6 mg PO DAILY Qty: 30 0RF lorazepam [Ativan] 1 mg tablet 1 mg PO TID PRN (Reason: dizziness or vertigo) Qty: 10 0RF No Action warfarin 6 mg tablet PO warfarin [Jantoven] 6 mg tablet 12 mg PO DAILY atorvastatin 20 mg tablet 20 mg PO DAILY diltiazem HCl 360 mg capsule,extended release 24 hr 360 mg PO DAILY metoprolol succinate 25 mg tablet extended release 24 hr 25 mg PO DAILY meclizine 25 mg tablet 25 mg PO Q8H PRN PRN (Reason: Dizziness) Qty: 20 0RF Primary Care Provider: Lalito Knight Referrals: Jonathan Moore MD [Non-Staff -Ordering Privileges] - 3-5 Days Lalito Knight DO [Primary Care Provider] - Activity Restrictions/Additional Instructions: Start your Coumadin back up at 6 mg a day and have a repeat INR level drawn in 1 week. Print Language: Afghan
[2024-03-02] MEDS: LORazepam 2 MG/ML Syringe 1 MG IV (14:50)
[2024-03-02 15:18] LABS: Absolute Lymphocyte Count 1.79 X10^3/uL (0.83-4.51); Absolute Neutrophil Count 2.6 X10^3/uL (2.0-7.7); Basophil# 0.03 X10^3/uL; Basophil% 0.6 % (0-1); Eosinophil# 0.18 X10^3/uL; Eosinophils% 3.4 % (0-5); Hematocrit 38.6 % (37-47); Hemoglobin 11.9 g/dL (12.0-15.0); Lymphocyte # 1.79 X10^3/ul (0.83-4.51); Lymphocyte % 33.6 % (19-41); Mean Corp Hgb Conc 30.8 g/dL (32-36); Mean Corpuscular Hgb 25.6 pg (27.0-32.0); Mean Corpuscular Volume 83.2 fL (81-99); Mean Platelet Vol. 10.5 fl (6.2-12.0); Monocyte# 0.68 X10^3/uL; Monocyte% 12.8 % (0-10); NRBC Flagged by Analyzer 0 % (0-5); Neutrophil # 2.63 X10^3/uL (2.7-7.7); Neutrophil % 49.4 % (47-70); Platelet Count 307 K/mm3 (150-450); RBC Distribution Width CV 17.7 % (11.6-14.6); Red Blood Count 4.64 M/mm3 (4.2-5.4); White Blood Count 5.3 K/mm3 (4.4-11.0)
[2024-03-02 15:31] LABS: International Normalized Ratio 1.3
[2024-03-02 15:34] LABS: Anion Gap 4 (5-15); BUN 12 mg/dL (7-18); BUN/Creat Ratio 22.2 RATIO (10-20); Calcium,Total 9.3 mg/dL (8.5-10.1); Chloride 108 mmol/L (98-107); Creatinine, Serum 0.54 mg/dL (0.55-1.02); EST Glomerular Filtration Rate 127 mL/min (>60); Est Glom Filt Rate - Afr Amer 153 mL/min (>60); Estimated Creatinine Clearance 131.26 ml/min; Glucose 77 mg/dL (74-106); Potassium 3.6 mmol/L (3.5-5.1); Sodium Level 139 mmol/L (136-145)
--- NOTE | 2024-03-02 17:02 | CT_ITS ---
STUDY: CTA HEAD AND NECK WITH CONTRAST REASON FOR EXAM: Female, 48 years old. Vertigo RADIATION DOSAGE (If Supplied By Facility): CTDIvol = ( 27.55 ) mGy, DLP = ( 1420.05 ) mGycm TECHNIQUE: CT angiography was performed with a multi-detector CT scanner. Data acquisition was obtained from the skull base through the vertex following intravenous administration of IV 100mL [id number]-[id number]. MIP images were reconstructed from the axial data set. Post-processing of the angiographic images was performed, with multiplanar reformation and 3D reconstruction. Individualized dose optimization techniques were used for this CT. COMPARISON: No relevant priors. FINDINGS: Normal bilateral petrous carotid arteries. There is calcified plaque formation of the right cavernous carotid artery, without a cross-sectional luminal stenosis. There is calcified plaque formation of the left cavernous carotid artery, without a cross-sectional luminal stenosis. Normal right A1 segments of the anterior cerebral artery. 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 Normal intact anterior communicating artery (ACOM). Normal bilateral A2 segments of the anterior cerebral arteries. Normal right M1 and M2 segments of the middle cerebral arteries, with a normal M1 bifurcation. Normal left M1 and M2 segments of the middle cerebral arteries, with a normal M1 bifurcation. There is a persistent origin of the right posterior cerebral artery with absence of the posterior communicating artery (PCOM). Normal left posterior communicating artery (PCOM). Normal bilateral vertebral arteries. Normal basilar artery with a normal basilar bifurcation. The visualized bilateral superior cerebellar (SCA) arteries are normal. Normal bilateral P1, P2 and visualized P3 segments of the posterior cerebral arteries. There is no demonstrated aneurysm of the [place]. There is no demonstrated abnormality of the visualized brain. AORTIC ARCH: Normal visualized aortic arch. Normal origins of the brachiocephalic, left common carotid, and left subclavian arteries. RIGHT CAROTID ARTERIES: Normal right common carotid artery (CCA). Normal right common carotid bulb. Normal origin of the right internal carotid (ICA) artery without a hemodynamically significant stenosis. Normal visualized cervical portion of the right internal carotid artery. Normal origin of the right external carotid artery (ECA). LEFT CAROTID ARTERIES: Normal left common carotid artery (CCA). Normal left common carotid bulb. Normal origin of the left internal carotid (ICA) artery without a hemodynamically significant stenosis. Normal visualized cervical portion of the left internal carotid artery. Normal origin of the left external carotid artery (ECA). VERTEBRAL ARTERIES: Normal bilateral vertebral arteries. CT/CTA Head AND Neck W/ Contrast IMPRESSION: Normal CTA Head and neck with contrast. No aneurysm or large vessel occlusion. No internal carotid artery stenosis. Electronically Signed: Terry Nicolas MD at 18:47 EDT ,
== END 2024-03-02 19:16 | disposition home or self-care (01) ==
PROVIDERS: Emergency Provider Emergency Medicine; PCP Preventive Medicine Occupational Medicine; Visit Provider Emergency Medicine
DX: R42 Dizziness and giddiness (principal); E78.00 Pure hypercholesterolemia, unspecified; Z79.899 Other long term (current) drug therapy; I10 Essential (primary) hypertension; G47.33 Obstructive sleep apnea (adult) (pediatric); Z79.01 Long term (current) use of anticoagulants; Z86.718 Personal history of other venous thrombosis and embolism
CPT/HCPCS: 70496; 70498; 80048; 85025; 85610; 93005; 96374; 99284; Q9967; A4216